=== PATIENT | female | born 1975 | race Native Hawaiian/Other Pacific Islander ===

== ENCOUNTER 2023-05-12 12:00 | Inpatient (IN) | payer MEDICARE, MEDICAID ==
[~2023-05-12] VITALS: Ht 144.8 cm; Wt 43.2 kg
--- NOTE | 2023-05-12 11:37 | PM&R Post Admission Assessment ---
PM&R Date of Visit: May 12, 2023 Time of Visit: 12:10 History of Present Illness CC: Debility from subdural hematomas following a fall HPI: This is a 48-year-old female who resides in a skilled nursing for the last 35 years who has a history of intellectual disability who presents following a fall and subdural hematomas were diagnosed. No surgical intervention was required. When she was admitted to [facility] she was found to have dehydration and sinus tachycardia. She does have a history of seizure disorder but no seizures occurred. Parkinson's limits her activity but she is ambulatory. intermediate will accept her back when she completes rehab. Currently she is doing very well able to follow most commands and will restart all home medication. Past Khhxjtx-Qzywgg-Ouulyf Hx Past Med/Social Hx: Reviewed Nursing Past Med/Soc Hx, Reviewed and Corrections made Patient Social History Marrital Status: single Employed/Student: unemployed Alcohol Use: Denies Use Smoking Status: Never a Smoker Past Medical History Neurological: Dementia, Developmental Disorder, Parkinson's Disease, Seizure Disorder PM&R Allergy/Meds/Data Review Allergies Coded Allergies: haloperidol (Verified Allergy, Unknown, Unknown , Active , ,, 05/12/23) Home Medications Scheduled Calcium Carbonate/Vitamin D3 (Os-Jones 500+D3 Caplet), 1 EACH PO DAILY, (Reported) Clonidine HCl (Clonidine HCl), 0.1 MG PO BID, (Reported) Clozapine (Clozapine), 200 MG PO BID, (Reported) Colestipol HCl (Colestipol HCl), 1 GM PO BID, (Reported) Escitalopram Oxalate (Escitalopram Oxalate), 10 MG PO DAILY, (Reported) Lactobacillus Rhamnosus GG (Culturelle), 1 EACH PO DAILY, (Reported) Lamotrigine (Lamotrigine), 25 MG PO BID, (Reported) Medroxyprogesterone Acetate (Medroxyprogesterone Acetate), 150 MG IM EVERY 3 MONTHS, (Reported) Methimazole (Methimazole), 5 MG PO Q48H, (Reported) Metoprolol Tartrate (Metoprolol Tartrate), 50 MG PO BID, (Reported) Multivitamin (Daily Freddie), 1 EACH PO DAILY, (Reported) Peg/Electrolytes (Golytely Solution), 4,000 ML PO UD, (Reported) Topiramate (Topiramate), 100 MG PO BID, (Reported) Scheduled PRN Acetaminophen (Tylenol Extra Strength), 500 MG PO QID PRN for PAIN-MILD (1-4), (Reported) Benzonatate (Benzonatate), 100 MG PO TID PRN for COUGH, (Reported) Clindamycin Phos (Clindamycin Phosphate), 1 APPLIC TOP UD PRN for ACNE/SKIN CONDITIONS, (Reported) Loperamide HCl (Loperamide), 2 MG PO QID PRN for DIARRHEA, (Reported) Current Medications Current Medications Reviewed Review of Systems ROS-Unable to Obtain: Semiunreliable due to ID Constitutional: see HPI, malaise, weakness EENTM: no symptoms reported Respiratory: no symptoms reported Cardiovascular: no symptoms reported Gastrointestinal: no symptoms reported Genitourinary: no symptoms reported Musculoskeletal: back pain Skin: no symptoms reported Psychiatric/Neurological: Emotional Problems All Other Systems Reviewed Negative Unless Noted: Yes Physical Exam Physical Exam Vital Signs Capillary Refill : Height, Weight, BMI Height: '" Weight: lbs. oz. kg; BMI Method: General Appearance: WD/WN, Anxious, Chronically ill, Thin Eyes: Bilateral Eye Normal Inspection, Bilateral Eye PERRL HEENT: PERRL/EOMI, Normal ENT Inspection, Pharynx Normal Neck: Full Range of Motion, Normal Inspection, Non Tender, Supple, Carotid Bruit Respiratory: Chest Non Tender, Lungs Clear, Normal Breath Sounds, No Accessory Muscle Use, No Respiratory Distress Cardiovascular: Regular Rate, Rhythm, No Edema, No Gallop, No JVD, No Murmur, Normal Peripheral Pulses Gastrointestinal: Normal Bowel Sounds, No Organomegaly, No Pulsatile Mass, Non Tender, Soft Back: Normal Inspection, No CVA Tenderness, No Vertebral Tenderness Extremity: Normal Capillary Refill, Normal Inspection, Normal Range of Motion, Non Tender, No Calf Tenderness, No Pedal Edema Neurologic/Psychiatric: Alert, manager mortgage II-XII Norm as Tested, Abnormal Gait, Depressed Affect, Motor Weakness ( generalized, impulsive) Skin: Normal Color, Warm/Dry Lymphatic: No Adenopathy PM&R Medical Assessment & Plan REHAB/MEDICAL ASSESSMENT AND PLAN: REHAB IMPAIRMENT GROUP: Traumatic, closed injury of brain ETIOLOGIC DIAGNOSIS: Subdural hematomas The comorbidities that impact the patients function and/or functional outcome by: seizure disorder, intellectual delay, Anxiety, Tachycardia REHAB PLAN: The patient is being admitted to our comprehensive inpatient rehabilitation facility and can tolerate the intensity of service consisting of at least: 180 minutes of therapy a day, 5 out of 7 days a week Rehab treatment will consist of: PT and OT will focus on regaining function with use of assistive devices and speech therapy will help with thought process management in order to regain enough independence to return back to skilled nursing The patient/family has a good understanding of our discharge process and will benefit from an interdisciplinary inpatient rehabilitation program. The patient has potential to make improvement and is in need of at least two of the following multidisciplinary therapies including but not limited to physical, occupational, speech, and prosthetics and orthotics. Additionally the patient will need services from respiratory, nutritional services, wound care, psychology, etc. (Customize this to each patient). Given the patients complex condition and risk of further medical complications, rehabilitation services cannot be safely or effectively provided at a lower level of care such as a custodial facility. BARRIERS TO DISCHARGE: intellectual delay ESTIMATED LOS: 7 days DISPOSITION: skilled nursing RELEVANT CHANGES SINCE PREADMISSION SCREENING: I have compared the patients medical and functional status at the time of the preadmission screening and there are: no changes PROGNOSIS: fair REHABILITATION GOALS: 1.PT and OT will focus on regaining function with use of assistive devices and speech therapy will help with thought process management in order to regain enough independence to return back to skilled nursing All the above goals were reviewed with the patient and he/she is in agreement. By signing this document, I acknowledge that I have personally performed a full physical examination on this patient within 24 hours of admission to this inpatient rehabilitation facility and have determined the patient to be able to tolerate the above course of treatment at an intensive level for a reasonable period of time. I will be completing a detailed individualized Plan of Care for this patient by day #4 of the patients stay based upon the Preadmission Screen, the Post-Admission Evaluation, and the therapy evaluations. Admission Dx/Comorbidities: (1) Subdural hematoma ICD Codes: S06.5XAA - Traumatic subdural hemorrhage with loss of consciousness status unknown, initial encounter Assessment/Plan Assessment and Plan Assess & Plan/Chief Complaint Assessment: Fall with subdural hematomas Seizure disorder Intellectual delay Tachycardia Anxiety Malnutrition Plan: Home meds Supportive care Check labs in morning PT and OT ERNST PAYTON DO May 12, 2023 11:37
[~2023-05-12 12:00] MED LIST: ACETAMINOPHEN 325 MG TABLET PO PRN; ALPRAZolam 0.25 MG TABLET PO PRN; BISACODYL 10 MG SUPPOSITORY PR PRN; CALCIUM CARBONATE 500 MG CHEW TABLET PO PRN; DOCUSATE SODIUM 100 MG CAPSULE PO PRN; LACTULOSE SYRUP 10GM/15ML 30ML UDC PO PRN; LOPERAMIDE 2 MG CAPSULE PO PRN; MELATONIN 3 MG TABLET PO PRN; ONDANSETRON 4 MG ORAL DISSOLVE TABLET PO PRN; Sodium Phosphate/Sodium Biphosphate ADULT enema PR PRN; diphenhydrAMINE 25 MG TABLET PO PRN; guaiFENesin/CODEINE 10ML UDC PO PRN
--- OUTSIDE RECORDS SUMMARY | 2023-05-12 12:13 | XMS REPORT ---
Author Author [facility] ter [facility] Address Unknown Phone Unavailable Care Team Providers Care Appliance Counselor Name Role Phone HARSH QUIROZ Unavailable PROBLEMS Type Condition ICD9-CM Code [id number] Code Onset Dates Condition Status W/U Status Risk SNOMED Code Notes Problem Chronic kidney disease, stage 3a N18.31 confirmed 685494967 Problem Kidney disease, chronic, stage III (moderate, EGFR 30-59 ml/min) N18.3 confirmed [id number] Problem Long-term use of high-risk medication Z79.899 Sep, Active confirmed 719665508 Problem Twitching R25.3 confirmed 166330073 Problem Stage 3b chronic kidney disease (CKD) N18.32 confirmed 899034714 Problem Hyperthyroidi sm E05.90 confirmed 98577030 Problem Diarrhea R19.7 confirmed 02670836 Problem Parkinson disease G20 Mar, Active confirmed 54263080 Problem Seizure disorder G40.909 Mar, Active confirmed 412470674 Problem Anxiety F41.9 Mar, Active confirmed 52153123 Problem Intellectual disability F79 confirmed 040083773 ALLERGIES Allergen (clinical drug ingredient) Drug/Non Drug Allergy documented on EMR Reaction Allergy Type Onset Date Status haloperidol HALOPERIDOL([facility] Code:[address]-55 ) Unknown , Active , , Drug Allergy 03/20/2016 Active ENCOUNTERS from 1974 to 2023-03-19 Encounter Location Date Provider Diagnosis [facility] [address] [place] [address] Apr, HARSH REYER IMMUNIZATIONS Vaccine Route Administration Date Status PRIVATE PPSV23 (PNEUMOVAX) IM Intramuscular Mar 26 Administered COVID-19 Pfizer (history) Unknown Sep 23, 2020 Ad ministered COVID-19 Pfizer (history) Unknown Sep 02, 2020 Ad ministered tdap (history) Unknown Sep 29, 2017 Administered tdap (history) Unknown November 08, 2013 Administere d influenza (history) Unknown May 17, 2018 Administ ered influenza (history) Unknown May 20, 2017 Administ ered influenza (history) Unknown May 21, 2016 Administ ered influenza (history) Unknown Jun 18, 2014 Administ ered SOCIAL HISTORY Sex Assigned At : Social History Observation Description Sex Assigned At Unknown Alcohol Screen (Audit-C) Question Answer Notes Did you have a drink containing alcohol in the p ast year? No Points 0 Interpretation Negative PHQ2 Question Answer Notes In the last 2 weeks, how oft en have you had little interest or pleasure in doing things? Not at all In the last 2 weeks, how oft en have you been feeling down, depressed, or hopeless? Not at all Total PHQ2 Score 0 REASON FOR REFERRAL No Information MEDICATIONS Medication SIG (Take, Route, Frequency, Duration) Notes Start Date End Date Status Multivitamin - 1 tablet Orally Once a day Active Benzonatate 100 MG 1 capsule as needed Orally Three times a day Active lamoTRIgine 25 MG 1 tablet Orally two times a day Active Calmoseptine Active Florastor 250 MG 1 capsule Orally daily Active cloNIDine HCl 0.1 MG 1 tablet Orally two times a day Active Loperamide HCl 2 MG 2 capsule as needed Orally Four times a day Active Escitalopram Oxalate 20 MG 1 tablet Orally Once a day Active Vraylar 6 MG 1 capsule Orally Onc e a day Active Topiramate 100 MG 1 tablet Orally BID for 30 day(s) Active Clindamycin Phosphate 1 % 1 application Externally Once a day for 30 day(s) Active OFF Deep Grubbs Activ e Pindolol 5 MG 1 tablet Orally Twic e a day Active Acetaminophen 500 MG 1 capsule as needed Orally every 6 hrs Active Sunscreens Active Oyster Shell 500 MG 1 tablet Orally twic e a day for 30 day(s) Active Depo-Provera 150 MG/ML 1 ml Intramuscular Active cloZAPine 200 MG 1 tablet Orally BID for 30 day(s) Active methIMAzole 5 MG 1 tablet Orally ever y other day Active REASON FOR VISIT med update MEDICAL (GENERAL) HISTORY Type Description Date Medical History Anxiety Medical History Seizure disorder Medical History Parkinson disease Medical History Long-term use of high-risk medic ation Medical History Kidney disease, geropsychologist rin, 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 Granado, [facility] janes, normal 2020 Surgical History EGD/Colonoscopy, Dr. Nash, [facility] 11/24/2021 MENTAL STATUS No Information PLAN OF TREATMENT No Information Insurance Providers Payer Name Payer Address Payer Phone Insured Name Patient Relationship to Insured Coverage Start Date Coverage End Date Subscriber Number Group Number [employer] PART A [address] [facility] [id number] Brad Arce Self - patient is the insured [id number] [place] [address] [address] [facility] [id number] [phone] Brad Arce Self - patient is the insured [id number]
--- OUTSIDE RECORDS SUMMARY | 2023-05-12 12:13 | XMS REPORT ---
Author Author [facility] ter [facility] ter [facility] Address Unknown Phone Unavailable Care Team Providers Care Scorekeeper Name Role Phone HARSH QUIROZ Unavailable PROBLEMS Type Condition ICD9-CM Code [id number] Code Onset Dates Condition Status W/U Status Risk SNOMED Code Notes Problem Chronic kidney disease, stage 3a N18.31 confirmed 131786461 Problem Kidney disease, chronic, stage III (moderate, EGFR 30-59 ml/min) N18.3 confirmed 598279059 Problem Long-term use of high-risk medication Z79.899 Sep, Active confirmed 616227314 Problem Twitching R25.3 confirmed 962657025 Problem Stage 3b chronic kidney disease (CKD) N18.32 confirmed 778203141 Problem Hyperthyroidi sm E05.90 confirmed 70080607 Problem Diarrhea R19.7 confirmed 04038522 Problem Parkinson disease G20 Mar, Active confirmed 15469156 Problem Seizure disorder G40.909 Mar, Active confirmed 879794669 Problem Anxiety F41.9 Mar, Active confirmed 19631988 Problem Intellectual disability F79 confirmed 266695083 ALLERGIES Allergen (clinical drug ingredient) Drug/Non Drug Allergy documented on EMR Reaction Allergy Type Onset Date Status haloperidol HALOPERIDOL([facility] Code:[address]-33 ) Unknown , Active , , Drug Allergy 03/20/2016 Active ENCOUNTERS from 1974 to 2023-03-28 Encounter Location Date Provider Diagnosis [facility] [address] [place] [address] Apr, HARSH QUIROZ Long-term use of high-risk medication Z79.899 IMMUNIZATIONS Vaccine Route Administration Date Status PRIVATE PPSV23 (PNEUMOVAX) IM Intramuscular Mar 26 Administered influenza (history) Unknown Jun 18, 2014 Administ ered influenza (history) Unknown May 21, 2016 Administ ered influenza (history) Unknown May 20, 2017 Administ ered influenza (history) Unknown May 17, 2018 Administ ered tdap (history) Unknown November 08, 2013 Administere d tdap (history) Unknown Sep 29, 2017 Administered COVID-19 Pfizer (history) Unknown Sep 02, 2020 Ad ministered COVID-19 Pfizer (history) Unknown Sep 23, 2020 Ad ministered SOCIAL HISTORY Sex Assigned At : Social [...] tablet Orally ever y other day Active PROCEDURES from 1974 to 2023-03-28 Procedure Date Ordered Date Performed Result Body Sit e ROUTINE VENIPUNCTURE 2021-04-14 2021-04-14 N/A REASON FOR VISIT CIERA Hemphill MEDICAL (GENERAL) HISTORY Type Description Date Medical History Anxiety Medical History Seizure disorder Medical History Parkinson disease Medical History Long-term use of high-risk medic ation Medical History Kidney disease, product mgr rin, 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 Granado, [facility] janes, normal 2020 Surgical History EGD/Colonoscopy, Dr. Nash, [facility] 11/24/2021 MENTAL STATUS No Information ASSESSMENTS Encounter Date Diagnosis Assessment Notes Treatment Notes Treatment Clinical Notes Apr, Long-term use of high-risk medication (ICD-10 - Z79.899) PLAN OF TREATMENT No Information Insurance Providers Payer Name Payer Address Payer Phone Insured Name Patient Relationship to Insured Coverage Start Date Coverage End Date Subscriber Number Group Number [employer] [place] PART A [address] [place] [address] Brad Arce Self - patient is the insured [id number] [place] [address] [address] [facility] [id number] Brad Arce Self - patient is the insured [id number]
--- OUTSIDE RECORDS SUMMARY | 2023-05-12 12:13 | XMS REPORT ---
Author Author [facility] ter [facility] ter [facility] Address Unknown Phone Unavailable Care Team Providers Care Centerpuncher Name Role Phone HARSH QUIROZ Unavailable PROBLEMS Type Condition ICD9-CM Code [id number] Code Onset Dates Condition Status W/U Status Risk SNOMED Code Notes Problem Chronic kidney disease, stage 3a N18.31 confirmed 161446931 Problem Kidney disease, chronic, stage III (moderate, EGFR 30-59 ml/min) N18.3 confirmed 225809219 Problem Long-term use of high-risk medication Z79.899 Sep, Active confirmed 209822207 Problem Twitching R25.3 confirmed 947037538 Problem Stage 3b chronic kidney disease (CKD) N18.32 confirmed 098962204 Problem Hyperthyroidi sm E05.90 confirmed 01467599 Problem Diarrhea R19.7 confirmed 25589589 Problem Parkinson disease G20 Mar, Active confirmed 20601249 Problem Seizure disorder G40.909 Mar, Active confirmed 171612349 Problem Anxiety F41.9 Mar, Active confirmed 57309362 Problem Intellectual disability F79 confirmed 996123200 ALLERGIES Allergen (clinical drug ingredient) Drug/Non Drug Allergy documented on EMR Reaction Allergy Type Onset Date Status haloperidol HALOPERIDOL([facility] Code:[address]-31 ) Unknown , Active , , Drug Allergy 03/20/2016 Active ENCOUNTERS from 1974 to 2023-04-28 Encounter Location Date Provider Diagnosis [facility] [address] [place] [address] May, HARSH QUIROZ Long-term use of high-risk medication Z79.899 IMMUNIZATIONS Vaccine Route Administration Date Status PRIVATE PPSV23 (PNEUMOVAX) IM Intramuscular Mar 26 21 Administered COVID-19 Pfizer (history) Unknown Sep 02, 2020 Ad ministered COVID-19 Pfizer (history) Unknown Sep 23, 2020 Ad ministered tdap (history) Unknown Sep [...] Duration) Notes Start Date End Date Status Sunscreens Active cloZAPine 200 MG 1 tablet Orally BID for 30 day(s) Active OFF Deep Grubbs Activ e Topiramate 100 MG 1 tablet Orally BID for 30 day(s) Active Loperamide HCl 2 MG 2 capsule as needed Orally Four times a day Active Depo-Provera 150 MG/ML 1 ml Intramuscular Active Multivitamin - 1 tablet Orally Once a day Active Clindamycin Phosphate 1 % 1 application Externally Once a day for 30 day(s) Active methIMAzole 5 MG 1 tablet Orally ever y other day Active Benzonatate 100 MG 1 capsule as needed Orally Three times a day Active Acetaminophen 500 MG 1 capsule as needed Orally every 6 hrs Active Escitalopram Oxalate 20 MG 1 tablet Orally Once a day Active Milk of Magnesia 400 MG/5ML 5 mL at least 4 hours between doses as needed Orally Four times a day 30 ml prn Active Megestrol Acetate 40 MG/ML 1 mL Orally Once a day 20 ml daily Active metroNIDAZOLE 500 MG 1 tablet Orally two times a day Active cloNIDine HCl 0.1 MG 1 tablet Orally two times a day Active Cyanocobalamin 1000 MCG 1 tablet Orally Once a day every 30 days Active Vraylar 6 MG 1 capsule Orally Onc e a day Active Oyster Shell 500 MG 1 tablet Orally twic e a day for 30 day(s) Active Pindolol 5 MG 1 tablet Orally Twic e a day Active Calmoseptine Active lamoTRIgine 25 MG 1 tablet Orally two times a day Unknown Florastor 250 MG 1 capsule Orally daily Active PROCEDURES from 1974 to 2023-04-28 Procedure Date Ordered Date Performed Result Body Sit e ROUTINE VENIPUNCTURE 2021-05-09 2021-05-09 N/A REASON FOR VISIT Lab (walk-in) [facility] Siddhartha SalinasMagdiel [place]ST[place]O MEDICAL (GENERAL) HISTORY Type Description Date Medical History Anxiety Medical History Seizure disorder Medical History Parkinson disease Medical History Long-term use of high-risk medic ation Medical History Kidney disease, finisher denture rin, 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 Granado, [facility] [place], normal 2020 Surgical History EGD/Colonoscopy, Dr. Nash, [facility] 11/24/2021 MENTAL STATUS No Information ASSESSMENTS Encounter Date Diagnosis Assessment Notes Treatment Notes Treatment Clinical Notes May, Long-term use of high-risk medication (ICD-10 - Z79.899) PLAN OF TREATMENT No Information Insurance Providers Payer Name Payer Address Payer Phone Insured Name Patient Relationship to Insured Coverage Start Date Coverage End Date Subscriber Number Group Number [place] [address] [address] [facility] [id number] [phone] Brad Arce Self - patient is the insured [id number] [employer] [place] PART A [address] [facility] [id number] Brad Arce Self - patient is the insured [id number]
--- OUTSIDE RECORDS SUMMARY | 2023-05-12 12:13 | XMS REPORT ---
Author Author [facility] ter [facility] Address Unknown Phone Unavailable Care Team Providers Care Director Of Staff Development Name Role Phone HARSH QUIROZ Unavailable PROBLEMS Type Condition ICD9-CM Code [id number] Code Onset Dates Condition Status W/U Status Risk SNOMED Code Notes Problem Chronic kidney disease, stage 3a N18.31 confirmed 164004944 Problem Kidney disease, chronic, stage III (moderate, EGFR 30-59 ml/min) N18.3 confirmed Problem Long-term use of high-risk medication Z79.899 Sep, Active confirmed 556658769 Problem Twitching R25.3 confirmed 798766034 Problem Stage 3b chronic kidney disease (CKD) N18.32 confirmed 815653238 Problem Hyperthyroidi sm E05.90 confirmed 35771084 Problem Diarrhea R19.7 confirmed 98230297 Problem Parkinson disease G20 Mar, Active confirmed 96819338 Problem Seizure disorder G40.909 Mar, Active confirmed Problem Anxiety F41.9 Mar, Active confirmed Problem Intellectual disability F79 confirmed ALLERGIES Allergen (clinical drug ingredient) Drug/Non Drug Allergy documented on EMR Reaction Allergy Type Onset Date Status haloperidol HALOPERIDOL([facility] Code:[address]-29 ) Unknown , Active , , Drug Allergy 03/20/2016 Active ENCOUNTERS from 1974 to 2023-03-30 Encounter Location Date Provider Diagnosis [facility] [address] [place] [address] Apr, HARSH QUIROZ IMMUNIZATIONS Vaccine Route Administration Date Status COVID-19 Pfizer (history) Unknown Sep 02, 2020 Ad ministered COVID-19 Pfizer (history) Unknown Sep 23, 2020 Ad ministered tdap (history) Unknown Sep 29, 2017 Administered tdap (history) Unknown November 08, 2013 Administere d influenza (history) Unknown May 17, 2018 Administ eretai influenza (history) Unknown May 20, 2017 Administ tanvir influenza (history) Unknown May 21, 2016 Administ tanvir influenza (history) Unknown Jun 18, 2014 Administ tanvir PRIVATE PPSV23 (PNEUMOVAX) IM Intramuscular Mar 26 Administered SOCIAL HISTORY Sex Assigned At : Social [...] y other day Active REASON FOR VISIT diarrhea MEDICAL (GENERAL) HISTORY Type Description Date Medical History Anxiety Medical History Seizure disorder Medical History Parkinson disease Medical History Long-term use of high-risk medic ation Medical History Kidney disease, clinical tech rin, 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 Granado, [place] [facility] [place], normal 2020 Surgical History EGD/Colonoscopy, Dr. Nash, [facility] 11/24/2021 MENTAL STATUS No Information PLAN OF TREATMENT No Information Insurance Providers Payer Name Payer Address Payer Phone Insured Name Patient Relationship to Insured Coverage Start Date Coverage End Date Subscriber Number Group Number [place] [address] [address] [facility] [id number] Brad Arce Self - patient is the insured [id number] [employer] [place] PART A [address] [facility] [id number] Brad Arce Self - patient is the insured [id number]
--- OUTSIDE RECORDS SUMMARY | 2023-05-12 12:13 | XMS REPORT ---
Author Author [facility] ter [facility] Address Unknown Phone Unavailable Care Team Providers Care Respiratory Tech Name Role Phone HARSH QUIROZ Unavailable PROBLEMS Type Condition ICD9-CM Code [id number] Code Onset Dates Condition Status W/U Status Risk SNOMED Code Notes Problem Chronic kidney disease, stage 3a N18.31 confirmed 571341070 Problem Kidney disease, chronic, stage III (moderate, EGFR 30-59 ml/min) N18.3 confirmed 932066889 Problem Long-term use of high-risk medication Z79.899 Sep, Active confirmed 416714649 Problem Twitching R25.3 confirmed 460278870 Problem Stage 3b chronic kidney disease (CKD) N18.32 confirmed 710881955 Problem Hyperthyroidi sm E05.90 confirmed 46226804 Problem Diarrhea R19.7 confirmed 39465808 Problem Parkinson disease G20 Mar, Active confirmed 89651079 Problem Seizure disorder G40.909 Mar, Active confirmed 208826808 Problem Anxiety F41.9 Mar, Active confirmed 41183577 Problem Intellectual disability F79 confirmed 330097001 ALLERGIES Allergen (clinical drug ingredient) Drug/Non Drug Allergy documented on EMR Reaction Allergy Type Onset Date Status haloperidol HALOPERIDOL([facility] Code:[address]-34 ) Unknown , Active , , Drug Allergy 03/20/2016 Active ENCOUNTERS from 1975 to 2023-03-23 Encounter Location Date Provider Diagnosis [facility] [address] [place] [address] Apr, HARSH REYER IMMUNIZATIONS Vaccine Route Administration Date Status PRIVATE PPSV23 (PNEUMOVAX) IM Intramuscular Mar 26 Administered COVID-19 Pfizer (history) Unknown Sep 02, [...] y other day Active REASON FOR VISIT appt. 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 Granado, [facility] [place], normal 2020 [facility] MENTAL STATUS No Information PLAN OF TREATMENT No Information Insurance Providers Payer Name Payer Address Payer Phone Insured Name Patient Relationship to Insured Coverage Start Date Coverage End Date Subscriber Number Group Number [place] [address] [address] [facility] [id number] Brad Arce Self - patient is the insured [id number] [employer] [place] PART A [address] [facility] [address] Brad Arce Self - patient is the insured [id number]
--- OUTSIDE RECORDS SUMMARY | 2023-05-12 12:14 | XMS REPORT ---
Author Author [facility] ter [facility] Address Unknown Phone Unavailable Care Team Providers Care Electro Mechanical Engineer Name Role Phone HARSH QUIROZ Unavailable PROBLEMS Type Condition ICD9-CM Code [id number] Code Onset Dates Condition Status W/U Status Risk SNOMED Code Notes Problem Chronic kidney disease, stage 3a N18.31 confirmed 697394499 Problem Kidney disease, chronic, stage III (moderate, EGFR 30-59 ml/min) N18.3 confirmed 211182993 Problem Long-term use of high-risk medication Z79.899 Sep, Active confirmed 086893939 Problem Twitching R25.3 confirmed 945915493 Problem Diarrhea R19.7 confirmed 64378144 Problem Hyperthyroidi sm E05.90 confirmed 56581411 Problem Parkinson disease G20 Mar, Active confirmed 22937825 Problem Seizure disorder G40.909 Mar, Active confirmed 479390194 Problem Anxiety F41.9 Mar, Active confirmed 33626750 Problem Intellectual disability F79 confirmed 505085307 ALLERGIES Allergen (clinical drug ingredient) Drug/Non Drug Allergy documented on EMR Reaction Allergy Type Onset Date Status haloperidol HALOPERIDOL([facility] Code:[address]-42 ) Unknown , Active , , Drug Allergy 03/20/2016 Active ENCOUNTERS from 1974 to 2023-02-07 Encounter Location Date Provider Diagnosis [facility] [address] [place] [address] Mar, HARSH QUIROZ Diarrhea R19.7 IMMUNIZATIONS Vaccine Route Administration Date Status PRIVATE [...] y other day Active REASON FOR VISIT stool sample/Dr. 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 Granado, [facility] [place], normal 2020 Surgical History EGD/Colonoscopy, Dr. Nash, [facility] [place] 11/24/2021 MENTAL STATUS No Information ASSESSMENTS Encounter Date Diagnosis Assessment Notes Treatment Notes Treatment Clinical Notes Mar, Diarrhea (ICD-10 - R19.7) PLAN OF TREATMENT No Information Insurance Providers Payer Name Payer Address Payer Phone Insured Name Patient Relationship to Insured Coverage Start Date Coverage End Date Subscriber Number Group Number [place] [address] [address] [facility] [id number] Brad Arce Self - patient is the insured [id number] [employer] [place] [address] [facility] [address] Brad Arce Self - patient is the insured [id number]
--- OUTSIDE RECORDS SUMMARY | 2023-05-12 12:14 | XMS REPORT ---
Author Author [facility] ter [facility] Address Unknown Phone Unavailable Care Team Providers Care Talent Sourcer Name Role Phone HARSH QUIROZ Unavailable PROBLEMS Type Condition ICD9-CM Code [id number] Code Onset Dates Condition Status W/U Status Risk SNOMED Code Notes Problem Chronic kidney disease, stage 3a N18.31 confirmed 788232891 Problem Kidney disease, chronic, stage III (moderate, EGFR 30-59 ml/min) N18.3 confirmed 537165426 Problem Long-term use of high-risk medication Z79.899 Sep, Active confirmed 964440669 Problem Twitching R25.3 confirmed 574439126 Problem Diarrhea R19.7 confirmed 45551929 Problem Hyperthyroidi sm E05.90 confirmed 79151658 Problem Parkinson disease G20 Mar, Active confirmed 17507381 Problem Seizure disorder G40.909 Mar, Active confirmed 399627554 Problem Anxiety F41.9 Mar, Active confirmed 89359133 Problem Intellectual disability F79 confirmed 521053943 ALLERGIES Allergen (clinical drug ingredient) Drug/Non Drug Allergy documented on EMR Reaction Allergy Type Onset Date Status haloperidol HALOPERIDOL([facility] Code:[address]-31 ) Unknown , Active , , Drug Allergy 03/20/2016 Active ENCOUNTERS from 1975 to 2023-01-13 Encounter Location Date Provider Diagnosis [facility] [place] [address] [place] [address] Jan, HARSH QUIROZ IMMUNIZATIONS Vaccine Route Administration Date Status COVID-19 Pfizer (history) Unknown Sep 23, 2020 Ad ministered COVID-19 Pfizer (history) Unknown Sep 02, 2020 Ad ministered tdap (history) Unknown Sep 29, 2017 Administered tdap (history) Unknown November 08, 2013 Administere d influenza (history) Unknown May 17, 2018 Administ eretai influenza (history) Unknown May 20, 2017 Administ eretai influenza (history) Unknown May 21, 2016 Administ [...] y other day Active REASON FOR VISIT [facility] MEDICAL (GENERAL) HISTORY Type Description Date Medical History Anxiety Medical History Seizure disorder Medical History Parkinson disease Medical History Long-term use of high-risk medic ation Medical History 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 Granado, [facility] [place], normal 2020 Surgical History EGD/Colonoscopy, Dr. Nash, [facility] 11/24/2021 MENTAL STATUS No Information PLAN OF TREATMENT No Information Insurance Providers Payer Name Payer Address Payer Phone Insured Name Patient Relationship to Insured Coverage Start Date Coverage End Date Subscriber Number Group Number [employer] [place] PART A [address] [facility] [phone] Brad Arce Self - patient is the insured [id number] [place] [address] [address] [facility] [address] Brad Arce Self - patient is the insured [id number]
--- OUTSIDE RECORDS SUMMARY | 2023-05-12 12:14 | XMS REPORT ---
Author Author [facility] ter [facility] ter [facility] Address Unknown Phone Unavailable Care Team Providers Care Administrative Court Justice Name Role Phone HARSH QUIROZ Unavailable PROBLEMS Type Condition ICD9-CM Code [id number] Code Onset Dates Condition Status W/U Status Risk SNOMED Code Notes Problem Chronic kidney disease, stage 3a N18.31 confirmed 850785750 Problem Kidney disease, chronic, stage III (moderate, EGFR 30-59 ml/min) N18.3 confirmed 052914399 Problem Long-term use of high-risk medication Z79.899 Sep, Active confirmed 332027783 Problem Twitching R25.3 confirmed 761491982 Problem Diarrhea R19.7 confirmed 84268958 Problem Hyperthyroidi sm E05.90 confirmed 97513167 Problem Parkinson disease G20 Mar, Active confirmed 88110855 Problem Seizure disorder G40.909 Mar, Active confirmed 473255057 Problem Anxiety F41.9 Mar, Active confirmed 37488505 Problem Intellectual disability F79 confirmed 282044299 ALLERGIES Allergen (clinical drug ingredient) Drug/Non Drug Allergy documented on EMR Reaction Allergy Type Onset Date Status haloperidol HALOPERIDOL([facility] Code:[address]-88 ) Unknown , Active , , Drug Allergy 03/20/2016 Active ENCOUNTERS from 1974 to 2023-01-29 Encounter Location Date Provider Diagnosis [facility] [address] [place] [address] [place] [address] Jan, HARSH QUIROZ Long-term use of high-risk medication Z79.899 IMMUNIZATIONS Vaccine Route Administration Date Status PRIVATE PPSV23 (PNEUMOVAX) IM Intramuscular Mar 26 21 Administered COVID-19 Pfizer (history) Unknown Sep 23, [...] other day Active PROCEDURES from 1974 to 2023-01-29 Procedure Date Ordered Date Performed Result Body Sit e ROUTINE VENIPUNCTURE 2021-02-21 2021-02-21 N/A REASON FOR VISIT [facility] [place] MEDICAL (GENERAL) HISTORY Type Description Date Medical History Anxiety Medical History Seizure disorder Medical History Parkinson disease Medical History Long-term use of high-risk medic ation Medical History 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 Granado, [place], normal 2020 Surgical History EGD/Colonoscopy, Dr. Nash, [facility] 11/24/2021 MENTAL STATUS No Information ASSESSMENTS Encounter Date Diagnosis Assessment Notes Treatment Notes Treatment Clinical Notes Jan, Long-term use of high-risk medication (ICD-10 - Z79.899) PLAN OF TREATMENT No Information Insurance Providers Payer Name Payer Address Payer Phone Insured Name Patient Relationship to Insured Coverage Start Date Coverage End Date Subscriber Number Group Number [place] [address] [address] [facility] [id number] Brad Arce Self - patient is the insured [id number] [employer] [place] A [address] [facility] [address] Brad Arce Self - patient is the insured [id number]
--- OUTSIDE RECORDS SUMMARY | 2023-05-12 12:14 | XMS REPORT ---
Author Author [facility] ter [facility] ter [facility] Address Unknown Phone Unavailable Care Team Providers Care Chief Controller Name Role Phone HARSH QUIROZ Unavailable PROBLEMS Type Condition ICD9-CM Code [id number] Code Onset Dates Condition Status W/U Status Risk SNOMED Code Notes Problem Chronic kidney disease, stage 3a N18.31 confirmed 523173723 Problem Kidney disease, chronic, stage III (moderate, EGFR 30-59 ml/min) N18.3 confirmed 966274892 Problem Long-term use of high-risk medication Z79.899 Sep, Active confirmed 527864412 Problem Twitching R25.3 confirmed 030921502 Problem Diarrhea R19.7 confirmed 88156845 Problem Hyperthyroidi sm E05.90 confirmed 77141683 Problem Parkinson disease G20 Mar, Active confirmed 07103396 Problem Seizure disorder G40.909 Mar, Active confirmed 508621868 Problem Anxiety F41.9 Mar, Active confirmed 77768839 Problem Intellectual disability F79 confirmed 407736926 ALLERGIES Allergen (clinical drug ingredient) Drug/Non Drug Allergy documented on EMR Reaction Allergy Type Onset Date Status haloperidol HALOPERIDOL([facility] Code:[address]-88 ) Unknown , Active , , Drug Allergy 03/20/2016 Active ENCOUNTERS from 1975 to 2022-12-17 Encounter Location Date Provider Diagnosis [facility] [address] [place] [address] Dec, HARSH QUIROZ Chronic kidney disease, stage 3 (moderate) N18.3 and Long-term use of high-risk medication Z79.899 IMMUNIZATIONS Vaccine Route Administration Date Status COVID-19 Pfizer (history) Unknown Sep 02, 2020 Ad ministered COVID-19 Pfizer (history) Unknown Sep 23, 2020 Ad ministered tdap (history) Unknown Sep 29, 2017 Administered tdap (history) Unknown November 08, 2013 Administere d influenza (history) Unknown May 17, 2018 Administ ered influenza (history) Unknown May 20, 2017 Administ ered influenza (history) Unknown May 21, 2016 Administ eretai influenza (history) Unknown Jun 18, 2014 Administ [...] y other day Active REASON FOR VISIT Labs[facility]/CIELO Farfan MEDICAL (GENERAL) HISTORY Type Description Date Medical History Anxiety Medical History Seizure disorder Medical History Parkinson disease Medical History Long-term use of high-risk medic ation Medical History 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 Granado, [facility] [place], normal 2020 Surgical [facility] MENTAL STATUS No Information ASSESSMENTS Encounter Date Diagnosis Assessment Notes Treatment Notes Treatment Clinical Notes Dec, Chronic kidney disease, stage 3 (moderate) (ICD-10 - N18.3) Dec, Long-term use of high-risk medication (ICD-10 - Z79.899) PLAN OF TREATMENT No Information Insurance Providers Payer Name Payer Address Payer Phone Insured Name Patient Relationship to Insured Coverage Start Date Coverage End Date Subscriber Number Group Number [employer] [place] PART A [address] [facility] [id number] Brad Arce Self - patient is the insured [id number] [place] [address] [address] [facility] [address] Brad Arce Self - patient is the insured [id number]
--- OUTSIDE RECORDS SUMMARY | 2023-05-12 12:14 | XMS REPORT ---
Author Author [facility] ter [facility] Address Unknown Phone Unavailable Care Team Providers Care Fire Fighter [employer] Name Role Phone HARSH QUIROZ Unavailable PROBLEMS Type Condition ICD9-CM Code [id number] Code Onset Dates Condition Status W/U Status Risk SNOMED Code Notes Problem Chronic kidney disease, stage 3a N18.31 confirmed 113208344 Problem Kidney disease, chronic, stage III (moderate, EGFR 30-59 ml/min) N18.3 confirmed 901247206 Problem Long-term use of high-risk medication Z79.899 Sep, Active confirmed 642815490 Problem Twitching R25.3 confirmed 381074871 Problem Diarrhea R19.7 confirmed 24065844 Problem Hyperthyroidi sm E05.90 confirmed 44480984 Problem Parkinson disease G20 Mar, Active confirmed 67680211 Problem Seizure disorder G40.909 Mar, Active confirmed 442663322 Problem Anxiety F41.9 Mar, Active confirmed 00488253 Problem Intellectual disability F79 confirmed 911535993 ALLERGIES Allergen (clinical drug ingredient) Drug/Non Drug Allergy documented on EMR Reaction Allergy Type Onset Date Status haloperidol HALOPERIDOL([facility] Code:[address]-30 ) Unknown , Active , , Drug Allergy 03/20/2016 Active ENCOUNTERS from 1975 to 2022-12-14 Encounter Location Date Provider Diagnosis [facility] [address] [place] [address] Dec, HARSH QUIROZ IMMUNIZATIONS Vaccine Route Administration Date [...] day Active REASON FOR VISIT [facility] MEDICAL (GENERAL) HISTORY Type Description Date Medical History Anxiety Medical History Seizure disorder Medical History Parkinson disease Medical History Long-term use of high-risk medic ation Medical History Kidney disease, pcas rin, 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 Granado, [place], normal 2020 Surgical History EGD/Colonoscopy, Dr. Nash, [facility] [place] 11/24/2021 MENTAL STATUS No Information PLAN OF TREATMENT No Information Insurance Providers Payer Name Payer Address Payer Phone Insured Name Patient Relationship to Insured Coverage Start Date Coverage End Date Subscriber Number Group Number [place] [employer] [address] [address] [facility] [address] Brad Arce Self - patient is the insured [id number] [employer] PART A [address] [facility] [address] Brad Arce Self - patient is the insured [id number]
--- OUTSIDE RECORDS SUMMARY | 2023-05-12 12:14 | XMS REPORT ---
Author Author [facility] Address Unknown Phone Unavailable Care Team Providers Care Pomology Teacher Name Role Phone HARSH QUIROZ Unavailable PROBLEMS Type Condition ICD9-CM Code [id number] Code Onset Dates Condition Status W/U Status Risk SNOMED Code Notes Problem Chronic kidney disease, stage 3a N18.31 confirmed 850471935 Problem Kidney disease, chronic, stage III (moderate, EGFR 30-59 ml/min) N18.3 confirmed 256211986 Problem Long-term use of high-risk medication Z79.899 Sep, Active confirmed 454804894 Problem Twitching R25.3 confirmed 969176864 Problem Diarrhea R19.7 confirmed 09227987 Problem Hyperthyroidi sm E05.90 confirmed 35800666 Problem Parkinson disease G20 Mar, Active confirmed 41341435 Problem Seizure disorder G40.909 Mar, Active confirmed 709193740 Problem Anxiety F41.9 Mar, Active confirmed 93962739 Problem Intellectual disability F79 confirmed 444083970 ALLERGIES Allergen (clinical drug ingredient) Drug/Non Drug Allergy documented on EMR Reaction Allergy Type Onset Date Status haloperidol HALOPERIDOL([facility] Code:[address]-34 ) Unknown , Active , , Drug Allergy 03/20/2016 Active ENCOUNTERS from 1975 to 2023-02-03 Encounter Location Date Provider [facility] [address] [place] [address] Jan, JEQUITA QUIROZ IMMUNIZATIONS Vaccine Route Administration Date Status COVID-19 Pfizer (history) Unknown Sep 23, 2020 Ad ministered COVID-19 Pfizer (history) Unknown Sep 02, 2020 Ad ministered tdap (history) Unknown Sep 29, 2017 Administered tdap (history) Unknown November 08, 2013 Administere d influenza (history) Unknown May 17, 2018 Administ tanvir influenza (history) Unknown May 20, 2017 Administ [...] y other day Active REASON FOR VISIT Diarrhea MEDICAL (GENERAL) HISTORY Type Description Date Medical History Anxiety Medical History Seizure disorder Medical History Parkinson disease Medical History Long-term use of high-risk medic ation Medical History 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 Granado, [facility] [place], normal 2020 Surgical History EGD/Colonoscopy, Dr. Nash, [facility] [place] 11/24/2021 MENTAL STATUS No Information PLAN OF TREATMENT No Information Insurance Providers Payer Name Payer Address Payer Phone Insured Name Patient Relationship to Insured Coverage Start Date Coverage End Date Subscriber Number Group Number [place] [address] [address] [facility] [id number] [phone] Brad Arce Self - patient is the insured [id number] [employer] [place] PART A [address] [facility] [address] Brad Arce Self - patient is the insured [id number]
--- OUTSIDE RECORDS SUMMARY | 2023-05-12 12:14 | XMS REPORT ---
Author Author [facility] ter [facility] ter [facility] Address Unknown Phone Unavailable Care Team Providers Care Janitor Custodian Name Role Phone HARSH QUIROZ Unavailable PROBLEMS Type Condition ICD9-CM Code [id number] Code Onset Dates Condition Status W/U Status Risk SNOMED Code Notes Problem Chronic kidney disease, stage 3a N18.31 confirmed 600785888 Problem Kidney disease, chronic, stage III (moderate, EGFR 30-59 ml/min) N18.3 confirmed 165199699 Problem Long-term use of high-risk medication Z79.899 Sep, Active confirmed 179180223 Problem Twitching R25.3 confirmed 019033910 Problem Diarrhea R19.7 confirmed 30421735 Problem Hyperthyroidi sm E05.90 confirmed 97018701 Problem Parkinson disease G20 Mar, Active confirmed 83364294 Problem Seizure disorder G40.909 Mar, Active confirmed 585599718 Problem Anxiety F41.9 Mar, Active confirmed 10493711 Problem Intellectual disability F79 confirmed 851091257 ALLERGIES Allergen (clinical drug ingredient) Drug/Non Drug Allergy documented on EMR Reaction Allergy Type Onset Date Status haloperidol HALOPERIDOL([facility] Code:[address]-14 ) Unknown , Active , , Drug Allergy 03/20/2016 Active ENCOUNTERS from 1975 to 2023-01-08 Encounter Location Date Provider Diagnosis [facility] [address] [place] [address] [place] [address] Dec, HARSH QUIROZ Long-term use of high-risk medication [...] influenza (history) Unknown Jun 18, 2014 Administ eretai PRIVATE PPSV23 (PNEUMOVAX) IM Intramuscular Mar 26 [...] other day Active PROCEDURES from 1974 to 2023-01-08 Procedure Date Ordered Date Performed Result Body Sit e ROUTINE VENIPUNCTURE 2021-01-29 2021-01-29 N/A REASON FOR VISIT Lab-home [facility] MEDICAL (GENERAL) HISTORY Type Description Date Medical History Anxiety Medical History Seizure disorder Medical History Parkinson disease Medical History Long-term use of high-risk medic ation Medical History 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 Granado, [place], normal 2020 Surgical History EGD/Colonoscopy, Dr. Nash, [facility] 11/24/2021 MENTAL STATUS No Information ASSESSMENTS Encounter Date Diagnosis Assessment Notes Treatment Notes Treatment Clinical Notes Dec, Long-term use of high-risk medication (ICD-10 - Z79.899) PLAN OF TREATMENT No Information Insurance Providers Payer Name Payer Address Payer Phone Insured Name Patient Relationship to Insured Coverage Start Date Coverage End Date Subscriber Number Group Number [employer] PART A [address] [facility] [id number] Brad Arce Self - patient is the insured [id number] [place] [address] [address] [facility] [id number] Brad Arce Self - patient is the insured [id number]
--- OUTSIDE RECORDS SUMMARY | 2023-05-12 12:14 | XMS REPORT ---
Author Author [facility] ter [facility] Address Unknown Phone Unavailable Care Team Providers Care Accounts Payables Clerk Name Role Phone HARSH QUIROZ Unavailable PROBLEMS ALLERGIES ENCOUNTERS from 1975 to 2023-01-27 IMMUNIZATIONS SOCIAL HISTORY No smoking Hx information available REASON FOR REFERRAL No Information MEDICATIONS REASON FOR VISIT MEDICAL (GENERAL) HISTORY MENTAL STATUS ASSESSMENTS PLAN OF TREATMENT Insurance Providers
--- OUTSIDE RECORDS SUMMARY | 2023-05-12 12:14 | XMS REPORT ---
Author Author [facility] ter [facility] Address Unknown Phone Unavailable Care Team Providers Care Supervisor Dumping Name Role Phone HARSH QUIROZ Unavailable PROBLEMS Type Condition ICD9-CM Code [id number] Code Onset Dates Condition Status W/U Status Risk SNOMED Code Notes Problem Chronic kidney disease, stage 3a N18.31 confirmed 885890397 Problem Kidney disease, chronic, stage III (moderate, EGFR 30-59 ml/min) N18.3 confirmed 175547018 Problem Long-term use of high-risk medication Z79.899 Sep, Active confirmed 734815869 Problem Twitching R25.3 confirmed 671482374 Problem Diarrhea R19.7 confirmed 78327266 Problem Hyperthyroidi sm E05.90 confirmed 50203826 Problem Parkinson disease G20 Mar, Active confirmed 55987073 Problem Seizure disorder G40.909 Mar, Active confirmed 660292763 Problem Anxiety F41.9 Mar, Active confirmed 66646375 Problem Intellectual disability F79 confirmed 770471877 ALLERGIES Allergen (clinical drug ingredient) Drug/Non Drug Allergy documented on EMR Reaction Allergy Type Onset Date Status haloperidol HALOPERIDOL([facility] Code:[address]-47 ) Unknown , Active , , Drug Allergy 03/20/2016 Active ENCOUNTERS from 1974 to 2022-12-09 Encounter Location Date Provider Diagnosis [facility] [address] [place] [address] November, HARSH QUIROZ Long-term use of high-risk medication [...] other day Active PROCEDURES from 1974 to 2022-12-09 Procedure Date Ordered Date Performed Result Body Sit e ROUTINE VENIPUNCTURE 2020-12-27 2020-12-27 N/A REASON FOR VISIT Lab MEDICAL (GENERAL) HISTORY Type Description Date Medical History Anxiety Medical History Seizure disorder Medical History Parkinson disease Medical History Long-term use of high-risk medic ation Medical History 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 Granado, [place], normal 2020 Surgical History EGD/Colonoscopy, Dr. Nash, [facility] [place] 11/24/2021 MENTAL STATUS No Information ASSESSMENTS Encounter Date Diagnosis Assessment Notes Treatment Notes Treatment Clinical Notes November, Long-term use of high-risk medication (ICD-10 - Z79.899) PLAN OF TREATMENT No Information Insurance Providers Payer Name Payer Address Payer Phone Insured Name Patient Relationship to Insured Coverage Start Date Coverage End Date Subscriber Number Group Number [employer] [place] PART A [address] [facility] [id number] Brad Arce Self - patient is the insured [id number] [place] [address] [address] [facility] [address] Brad Arce Self - patient is the insured [id number]
--- OUTSIDE RECORDS SUMMARY | 2023-05-12 12:14 | XMS REPORT ---
Author Author [facility] ter [facility] ter [facility] Address Unknown Phone Unavailable Care Team Providers Care Manager Talent Management Name Role Phone HARSH QUIROZ Unavailable PROBLEMS Type Condition ICD9-CM Code [id number] Code Onset Dates Condition Status W/U Status Risk SNOMED Code Notes Problem Chronic kidney disease, stage 3a N18.31 confirmed 172936030 Problem Kidney disease, chronic, stage III (moderate, EGFR 30-59 ml/min) N18.3 confirmed 007530810 Problem Long-term use of high-risk medication Z79.899 Sep, Active confirmed 852078819 Problem Twitching R25.3 confirmed 239231829 Problem Stage 3b chronic kidney disease (CKD) N18.32 confirmed 554131471 Problem Hyperthyroidi sm E05.90 confirmed 35680370 Problem Diarrhea R19.7 confirmed 11463757 Problem Parkinson disease G20 Mar, Active confirmed 92676986 Problem Seizure disorder G40.909 Mar, Active confirmed 832045196 Problem Anxiety F41.9 Mar, Active confirmed 82624311 Problem Intellectual disability F79 confirmed 514839243 ALLERGIES Allergen (clinical drug ingredient) Drug/Non Drug Allergy documented on EMR Reaction Allergy Type Onset Date Status haloperidol HALOPERIDOL([facility] Code:[address]-82 ) Unknown , Active , , Drug Allergy 03/20/2016 Active ENCOUNTERS from 1974 to 2023-03-08 Encounter Location Date Provider Diagnosis [facility] [address] [place] [address] Mar, HARSH QUIROZ Encounter for Medica re annual wellness exam Z00.00 ; Chronic kidney disease, stage 3a N18.31 ; Seizure disorder G40.909 ; Parkinson disease G20 ; Hyperthyroidism E05.90 ; Intellectual disability F79 ; Anxiety F41.9 ; Diarrhea R19.7 and Encounter for immunization Z23 IMMUNIZATIONS Vaccine Route Administration Date Status COVID-19 [...] Score 0 REASON FOR REFERRAL No Information VITAL SIGNS Height 63 in Mar, Weight 98.6 lbs Mar, Weight-kg 44.72 kg Mar, Temperature 97.5 degrees Fahrenheit Mar, Heart Rate 100 bpm Mar, Respiratory Rate 18 bpm Mar, Oximetry 98 % Mar, BMI 17.46 kg/m2 Mar, Blood pressure systolic 101 mmHg Mar, Blood pressure diastolic 65 mmHg Mar, MEDICATIONS Medication SIG (Take, Route, Frequency, Duration) [...] y other day Active REASON FOR VISIT Medicare AWV/Seen with [facility] staff/CIELO Farfan MEDICAL (GENERAL) HISTORY Type Description Date Medical History Anxiety Medical History Seizure disorder Medical History Parkinson disease Medical History Long-term use of high-risk medic ation Medical History 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 Granado, [facility] [place] 2020 Surgical [facility] MENTAL STATUS No Information ASSESSMENTS Encounter Date Diagnosis Assessment Notes Treatment Notes Treatment Clinical Notes Mar, Encounter for Medicare annual wellness exam (ICD-10 - Z00.00) Mar, Chronic kidney disease, stage 3a (ICD-10 - N18.31) Continue follow up with nephrology. Mar, Hyperthyroidism (ICD-10 - E05.90) Nursing contacted endocrinology since she has not been seen since last June, latest lab results faxed as they had not received them. Nursing reports that endocrinology will call back after reviewing with provider. Action sent to nursing to follow up on this. Mar, Intellectual disability (ICD-10 - F79) [facility] at [facility]. Mar, Diarrhea (ICD-10 - R19.7) Patient is on multiple medications that can cause diarrhea. NAC has already been stopped. Recommend [facility] talk with psychiatrist about memantine and naltrexone; lexapro and topamax can both cause diarrhea as well. Mar, Encounter for immunization (ICD-10 - Z23) Mar, Seizure disorder (ICD-10 - G40.909) Continue follow up with Dr. Bhatt, neurologist. Mar, Parkinson disease (ICD-10 - G20) Continue follow up with neurologist - question if some of this is due to medication rather than true parkinsons. Mar, Anxiety (ICD-10 - F41.9) Continue clonidine. Continue follow up with psychiatrist. PLAN OF TREATMENT Treatment Notes Assessment Notes Clinical Notes Chronic kidney disease, stage 3a Continue follow up with nephrology. Seizure disorder Continue follow up with Dr. Bhatt, neurologist. Parkinson disease Continue follo w up with neurologist - question if some of this is due to medication rather than true parkinsons. Hyperthyroidism Nursing contacte d endocrinology since she has not been seen since last June, latest lab results faxed as they had not received them. Nursing reports that endocrinology will call back after reviewing with provider. Action sent to nursing to follow up on this. Intellectual disability Resides at [facility], [facility]. Anxiety Continue clonidi ne. Continue follow up with psychiatrist. Diarrhea Patient is on mu ltiple medications that can cause diarrhea. NAC has already been stopped. Recommend [facility] talk with psychiatrist about memantine and naltrexone; lexapro and topamax can both cause diarrhea as well. Next Appt Details 1 Year Reason:AWV Follow Up:1 YearAWV Insurance Providers Payer Name Payer Address Payer Phone Insured Name Patient Relationship to Insured Coverage Start Date Coverage End Date Subscriber Number Group Number [place] [address] [address] [facility] [id number] [phone] Brad Arce Self - patient is the insured [id number] [email or web address] [place] PART A [address] [facility] [phone] Brad Arce Self - patient is the insured [id number]
--- OUTSIDE RECORDS SUMMARY | 2023-05-12 12:14 | XMS REPORT ---
Author Author [facility] ter [facility] Address Unknown Phone Unavailable Care Team Providers Care Church Worker Name Role Phone HARSH QUIROZ Unavailable PROBLEMS Type Condition ICD9-CM Code [id number] Code Onset Dates Condition Status W/U Status Risk SNOMED Code Notes Problem Chronic kidney disease, stage 3a N18.31 confirmed 324160846 Problem Kidney disease, chronic, stage III (moderate, EGFR 30-59 ml/min) N18.3 confirmed 033514004 Problem Long-term use of high-risk medication Z79.899 Sep, Active confirmed 916994305 Problem Twitching R25.3 confirmed 394037964 Problem Diarrhea R19.7 confirmed 78363879 Problem Hyperthyroidi sm E05.90 confirmed 65069452 Problem Parkinson disease G20 Mar, Active confirmed 67644082 Problem Seizure disorder G40.909 Mar, Active confirmed 684574127 Problem Anxiety F41.9 Mar, Active confirmed 75965397 Problem Intellectual disability F79 confirmed 361012610 ALLERGIES Allergen (clinical drug ingredient) Drug/Non Drug Allergy documented on EMR Reaction Allergy Type Onset Date Status haloperidol HALOPERIDOL([facility] Code:[address]-30 ) Unknown , Active , , Drug Allergy 03/20/2016 Active ENCOUNTERS from 1975 to 2023-02-05 Encounter Location Date Provider Diagnosis [facility] [address] [address] [place] [address] Jan, HARSH QUIROZ Diarrhea R19.7 IMMUNIZATIONS Vaccine Route [...] 2017 Administered COVID-19 Pfizer (history) Unknown Sep 23, 2020 Ad ministered COVID-19 Pfizer (history) Unknown Sep 02, 2020 Ad ministered SOCIAL HISTORY Sex Assigned [...] y other day Active REASON FOR VISIT stool/Quiroz MEDICAL (GENERAL) HISTORY Type Description Date Medical History Anxiety Medical History Seizure disorder Medical History Parkinson disease Medical History Long-term use of high-risk medic ation Medical History 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 Granado, [place], normal 2020 Surgical History EGD/Colonoscopy, Dr. Nash, [facility] [place] 11/24/2021 MENTAL STATUS No Information ASSESSMENTS Encounter Date Diagnosis Assessment Notes Treatment Notes Treatment Clinical Notes Jan, Diarrhea (ICD-10 - R19.7) PLAN OF TREATMENT No Information Insurance Providers Payer Name Payer Address Payer Phone Insured Name Patient Relationship to Insured Coverage Start Date Coverage End Date Subscriber Number Group Number [place] [address] [address] [facility] [id number] Brad Arce Self - patient is the insured [id number] [employer] [place] PART A [address] [facility] [address] Brad Arce Self - patient is the insured [id number]
--- OUTSIDE RECORDS SUMMARY | 2023-05-12 12:14 | XMS REPORT ---
Author Author [facility] Address Unknown Phone Unavailable Care Team Providers Care Specimen Accessioner Name Role Phone HARSH QUIROZ Unavailable PROBLEMS Type Condition ICD9-CM Code [id number] Code Onset Dates Condition Status W/U Status Risk SNOMED Code Notes Problem Chronic kidney disease, stage 3a N18.31 confirmed 867596381 Problem Kidney disease, chronic, stage III (moderate, EGFR 30-59 ml/min) N18.3 confirmed 432683122 Problem Long-term use of high-risk medication Z79.899 Sep, Active confirmed 912750764 Problem Twitching R25.3 confirmed 215270480 Problem Diarrhea R19.7 confirmed 02391898 Problem Hyperthyroidi sm E05.90 confirmed 47993019 Problem Parkinson disease G20 Mar, Active confirmed 00528784 Problem Seizure disorder G40.909 Mar, Active confirmed 573827613 Problem Anxiety F41.9 Mar, Active confirmed 83276118 Problem Intellectual disability F79 confirmed 112064517 ALLERGIES Allergen (clinical drug ingredient) Drug/Non Drug Allergy documented on EMR Reaction Allergy Type Onset Date Status haloperidol HALOPERIDOL([facility] Code:[address]-02 ) Unknown , Active , , Drug Allergy 03/20/2016 Active ENCOUNTERS from 1974 to 2023-02-04 Encounter Location Date Provider Diagnosis [facility] [address] [place] [address] Jan, JEQUITA QUIROZ IMMUNIZATIONS Vaccine Route Administration [...] y other day Active REASON FOR VISIT *Diarrhea MEDICAL (GENERAL) HISTORY Type Description Date Medical History Anxiety Medical History Seizure disorder Medical History Parkinson disease Medical History Long-term use of high-risk medic ation Medical History 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 Granado, [place], normal 2020 [facility] [place] [facility] MENTAL STATUS No Information PLAN OF TREATMENT No Information Insurance Providers Payer Name Payer Address Payer Phone Insured Name Patient Relationship to Insured Coverage Start Date Coverage End Date Subscriber Number Group Number [place] [address] [address] [facility] [id number] Brad Arce Self - patient is the insured [id number] [employer] [place] PART A [address] [facility] [address] Brad Arce Self - patient is the insured [id number]
--- OUTSIDE RECORDS SUMMARY | 2023-05-12 12:14 | XMS REPORT ---
Author Author [facility] ter [facility] Address Unknown Phone Unavailable Care Team Providers Care Lamination Spinner Name Role Phone HARSH QUIROZ Unavailable PROBLEMS Type Condition ICD9-CM Code [id number] Code Onset Dates Condition Status W/U Status Risk SNOMED Code Notes Problem Chronic kidney disease, stage 3a N18.31 confirmed 508024096 Problem Kidney disease, chronic, stage III (moderate, EGFR 30-59 ml/min) N18.3 confirmed 799065787 Problem Long-term use of high-risk medication Z79.899 Sep, Active confirmed 428718863 Problem Twitching R25.3 confirmed 599501357 Problem Diarrhea R19.7 confirmed 18058570 Problem Hyperthyroidi sm E05.90 confirmed 96273825 Problem Parkinson disease G20 Mar, Active confirmed 28565581 Problem Seizure disorder G40.909 Mar, Active confirmed 639573863 Problem Anxiety F41.9 Mar, Active confirmed 90614020 Problem Intellectual disability F79 confirmed 697460805 ALLERGIES Allergen (clinical drug ingredient) Drug/Non Drug Allergy documented on EMR Reaction Allergy Type Onset Date Status haloperidol HALOPERIDOL([facility] Code:[address]-12 ) Unknown , Active , , Drug Allergy 03/20/2016 Active ENCOUNTERS from 1975 to 2022-11-13 Encounter Location Date Provider Diagnosis [facility] [address] [place] [address] November, HARSH QUIROZ IMMUNIZATIONS Vaccine Route Administration Date Status PRIVATE [...] day Active REASON FOR VISIT [facility] MEDICAL (GENERAL) HISTORY Type Description Date Medical History Anxiety Medical History Seizure disorder Medical History Parkinson disease Medical History Long-term use of high-risk medic ation Medical History 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 Granado, [place], normal 2020 Surgical History EGD/Colonoscopy, Dr. Nash, [facility] [place] 11/24/2021 MENTAL STATUS No Information PLAN OF TREATMENT No Information Insurance Providers Payer Name Payer Address Payer Phone Insured Name Patient Relationship to Insured Coverage Start Date Coverage End Date Subscriber Number Group Number [place] [address] [address] [facility] [address] Brad Arce Self - patient is the insured [id number] Take the Interview [place] PART A [address] [facility] [address] Brad Arce Self - patient is the insured [id number]
--- OUTSIDE RECORDS SUMMARY | 2023-05-12 12:14 | XMS REPORT ---
Author Author [facility] ter [facility] ter [facility] Address Unknown Phone Unavailable Care Team Providers Care Protocol Manager Name Role Phone HARSH QUIROZ Unavailable PROBLEMS Type Condition ICD9-CM Code [id number] Code Onset Dates Condition Status W/U Status Risk SNOMED Code Notes Problem Chronic kidney disease, stage 3a N18.31 confirmed 171004086 Problem Kidney disease, chronic, stage III (moderate, EGFR 30-59 ml/min) N18.3 confirmed 367706386 Problem Long-term use of high-risk medication Z79.899 Sep, Active confirmed 345248081 Problem Twitching R25.3 confirmed 417209827 Problem Diarrhea R19.7 confirmed 61367377 Problem Hyperthyroidi sm E05.90 confirmed 17780089 Problem Parkinson disease G20 Mar, Active confirmed 85830848 Problem Seizure disorder G40.909 Mar, Active confirmed 036615263 Problem Anxiety F41.9 Mar, Active confirmed 53087993 Problem Intellectual disability F79 confirmed 151723222 ALLERGIES Allergen (clinical drug ingredient) Drug/Non Drug Allergy documented on EMR Reaction Allergy Type Onset Date Status haloperidol HALOPERIDOL([facility] Code:[address]-32 ) Unknown , Active , , Drug Allergy 03/20/2016 Active ENCOUNTERS from 1975 to 2023-02-18 Encounter Location Date Provider Diagnosis [facility] [address] [place] [address] Mar, HARSH QUIROZ Long-term use of high-risk medication [...] other day Active PROCEDURES from 1974 to 2023-02-18 Procedure Date Ordered Date Performed Result Body Sit e ROUTINE VENIPUNCTURE 2021-03-11 2021-03-11 N/A REASON FOR VISIT Lab/Dr. 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 [place] [facility] MENTAL STATUS No Information ASSESSMENTS Encounter Date Diagnosis Assessment Notes Treatment Notes Treatment Clinical Notes Mar, Long-term use of high-risk medication (ICD-10 - Z79.899) PLAN OF TREATMENT No Information Insurance Providers Payer Name Payer Address Payer Phone Insured Name Patient Relationship to Insured Coverage Start Date Coverage End Date Subscriber Number Group Number [place] [address] [address] [facility] [address] Brad Arce Self - patient is the insured [id number] [employer] [place] PART A [address] [facility] [address] Brad Arce Self - patient is the insured [id number]
--- OUTSIDE RECORDS SUMMARY | 2023-05-12 12:14 | XMS REPORT ---
Author Author [facility] ter [facility] Address Unknown Phone Unavailable Care Team Providers Care Account Manager B2B Name Role Phone HARSH QUIROZ Unavailable PROBLEMS Type Condition ICD9-CM Code [id number] Code Onset Dates Condition Status W/U Status Risk SNOMED Code Notes Problem Chronic kidney disease, stage 3a N18.31 confirmed 968717806 Problem Kidney disease, chronic, stage III (moderate, EGFR 30-59 ml/min) N18.3 confirmed 814155583 Problem Long-term use of high-risk medication Z79.899 Sep, Active confirmed 353783213 Problem Twitching R25.3 confirmed 598695259 Problem Diarrhea R19.7 confirmed 89590373 Problem Hyperthyroidi sm E05.90 confirmed 31213080 Problem Parkinson disease G20 Mar, Active confirmed 97176608 Problem Seizure disorder G40.909 Mar, Active confirmed 823947474 Problem Anxiety F41.9 Mar, Active confirmed 67029418 Problem Intellectual disability F79 confirmed 835064349 ALLERGIES Allergen (clinical drug ingredient) Drug/Non Drug Allergy documented on EMR Reaction Allergy Type Onset Date Status haloperidol HALOPERIDOL([facility] Code:[address]-86 ) Unknown , Active , , Drug Allergy 03/20/2016 Active ENCOUNTERS from 1975 to 2023-01-30 Encounter Location Date Provider Diagnosis [facility] [address] [place] [address] Jan, HARSH QUIROZ Hyperthyroidism E05. 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 Granado, [place], normal 2020 [facility] MENTAL STATUS No Information ASSESSMENTS Encounter Date Diagnosis Assessment Notes Treatment Notes Treatment Clinical Notes Jan, Hyperthyroidism (ICD-10 - E05.90) PLAN OF TREATMENT Future Test Test Name Order Date TSH w/ FREE T4 [id number] TSH w/ FREE T4 [id number] Insurance Providers Payer Name Payer Address Payer Phone Insured Name Patient Relationship to Insured Coverage Start Date Coverage End Date Subscriber Number Group Number [facility] PART A [address] [facility] [phone] Brad Arce Self - patient is the insured [id number] [place] [address] [address] [facility] [id number] [phone] Brad Arce Self - patient is the insured [id number]
--- OUTSIDE RECORDS SUMMARY | 2023-05-12 12:14 | XMS REPORT ---
Author Author [facility] ter [facility] Address Unknown Phone Unavailable Care Team Providers Care Painter And Body Mechanic Apprentice Name Role Phone HARSH QUIROZ Unavailable PROBLEMS Type Condition ICD9-CM Code [id number] Code Onset Dates Condition Status W/U Status Risk SNOMED Code Notes Problem Chronic kidney disease, stage 3a N18.31 confirmed 926227713 Problem Kidney disease, chronic, stage III (moderate, EGFR 30-59 ml/min) N18.3 confirmed 548809645 Problem Long-term use of high-risk medication Z79.899 Sep, Active confirmed 862465508 Problem Twitching R25.3 confirmed 760949047 Problem Diarrhea R19.7 confirmed 75409302 Problem Hyperthyroidi sm E05.90 confirmed 74574316 Problem Parkinson disease G20 Mar, Active confirmed 87811724 Problem Seizure disorder G40.909 Mar, Active confirmed 124050496 Problem Anxiety F41.9 Mar, Active confirmed 81280880 Problem Intellectual disability F79 confirmed 594686853 ALLERGIES Allergen (clinical drug ingredient) Drug/Non Drug Allergy documented on EMR Reaction Allergy Type Onset Date Status haloperidol HALOPERIDOL([facility] Code:[address]-00 ) Unknown , Active , , Drug Allergy 03/20/2016 Active ENCOUNTERS from 1974 to 2023-02-16 Encounter Location Date Provider Diagnosis [facility] [address] [place] [address] Jan, HARSH QUIROZ Long-term use of high-risk [...] other day Active PROCEDURES from 1974 to 2023-02-16 Procedure Date Ordered Date Performed Result Body Sit e ROUTINE VENIPUNCTURE 2021-02-11 2021-02-11 N/A REASON FOR VISIT Lab/[facility] MEDICAL (GENERAL) HISTORY Type Description Date Medical History Anxiety Medical History Seizure disorder Medical History Parkinson disease Medical History Long-term use of high-risk medic ation Medical History 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 MENTAL STATUS No Information ASSESSMENTS Encounter Date Diagnosis Assessment Notes Treatment Notes Treatment Clinical Notes Sep, Long-term use of high-risk medication (ICD-10 - Z79.899) PLAN OF TREATMENT No Information Insurance Providers Payer Name Payer Address Payer Phone Insured Name Patient Relationship to Insured Coverage Start Date Coverage End Date Subscriber Number Group Number [place] [employer] [place] [address] [address] [facility] [id number] Brad Arce Self - patient is the insured [id number] [employer] [place] PART A [address] [facility] [id number] Brad Arce Self - patient is the insured [id number]
--- OUTSIDE RECORDS SUMMARY | 2023-05-12 12:14 | XMS REPORT ---
Author Author [facility] ter [facility] Address Unknown Phone Unavailable Care Team Providers Care Food Production Manager Name Role Phone HARSH QUIROZ Unavailable PROBLEMS Type Condition ICD9-CM Code THY50-IE Code Onset Dates Condition Status W/U Status Risk SNOMED Code Notes Problem Chronic kidney disease, stage 3a N18.31 confirmed 689165945 Problem Kidney disease, chronic, stage III (moderate, EGFR 30-59 ml/min) N18.3 confirmed 383461262 Problem Long-term use of high-risk medication Z79.899 Sep, Active confirmed 291709214 Problem Twitching R25.3 confirmed 677196501 Problem Diarrhea R19.7 confirmed 26729818 Problem Hyperthyroidi sm E05.90 confirmed 60898325 Problem Parkinson disease G20 Mar, Active confirmed 45223598 Problem Seizure disorder G40.909 Mar, Active confirmed 432413680 Problem Anxiety F41.9 Mar, Active confirmed 54002495 Problem Intellectual disability F79 confirmed 139330244 ALLERGIES Allergen (clinical drug ingredient) Drug/Non Drug Allergy documented on EMR Reaction Allergy Type Onset Date Status haloperidol HALOPERIDOL([facility] Code:[address]-00 ) Unknown , Active , , Drug Allergy 03/20/2016 Active ENCOUNTERS from 1974 to 2022-11-17 Encounter Location Date Provider Diagnosis [facility] [address] [place] [address] [place] [address] November, HARSH QUIROZ Hyperthyroidism E05. 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 Granado [facility] janes, normal 2020 Surgical History EGD/Colonoscopy, Dr. Nash, [facility] [place] 11/24/2021 MENTAL STATUS No Information ASSESSMENTS Encounter Date Diagnosis Assessment Notes Treatment Notes Treatment Clinical Notes November, Hyperthyroidism (ICD-10 - E05.90) November, Chronic kidney disease, stage 3a (ICD-10 - N18.31) November, Long-term use of high-risk medication (ICD-10 - Z79.899) PLAN OF TREATMENT No Information Insurance Providers Payer Name Payer Address Payer Phone Insured Name Patient Relationship to Insured Coverage Start Date Coverage End Date Subscriber Number Group Number [place] [employer] [place] [address] [address] [facility] [id number] Brad Arce Self - patient is the insured [id number] [employer] [place] A [address] [facility] [address] Brad Arce Self - patient is the insured [id number]
--- OUTSIDE RECORDS SUMMARY | 2023-05-12 12:14 | XMS REPORT ---
Author Author [facility] ter [facility] ter [facility] Address Unknown Phone Unavailable Care Team Providers Care Hairpiece Stylist Name Role Phone HARSH QUIROZ Unavailable PROBLEMS Type Condition ICD9-CM Code CDW35-AT Code Onset Dates Condition Status W/U Status Risk SNOMED Code Notes Problem Chronic kidney disease, stage 3a N18.31 confirmed 614088661 Problem Stage 3b chronic kidney disease (CKD) N18.32 confirmed 289918684 Problem Anxiety F41.9 Mar, Active confirmed 79546785 Problem Twitching R25.3 confirmed 296077024 Problem Kidney disease, chronic, stage III (moderate, EGFR 30-59 ml/min) N18.3 confirmed 108143893 Problem Hyperthyroidi sm E05.90 confirmed 47212914 Problem Diarrhea R19.7 confirmed 00482231 Problem Seizure disorder G40.909 Mar, Active confirmed 078374384 Problem Parkinson disease G20 Mar, Active confirmed 34531799 Problem Long-term use of high-risk medication Z79.899 Sep, Active confirmed 415191450 Problem Intellectual disability F79 confirmed 401084470 ALLERGIES Allergen (clinical drug ingredient) Drug/Non Drug Allergy documented on EMR Reaction Allergy Type Onset Date Status haloperidol HALOPERIDOL([facility] Code:[address]-27 ) Unknown , Active , , Drug Allergy 03/20/2016 Active ENCOUNTERS from 1974 to 2023-03-01 Encounter Location Date Provider Diagnosis [facility] [address] [place] [address] Mar, HARSH QUIROZ IMMUNIZATIONS Vaccine Route Administration Date [...] influenza (history) Unknown May 21, 2016 Administ marizad influenza (history) Unknown Jun 18, 2014 Administ tanvir PRIVATE PPSV23 (PNEUMOVAX) IM Intramuscular Mar 26 21 Administered SOCIAL HISTORY Sex Assigned At : [...] high-risk medic ation Medical History 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 Granado, [facility] [place], [place] 2020 Surgical [facility] MENTAL STATUS No Information PLAN OF TREATMENT No Information Insurance Providers Payer Name Payer Address Payer Phone Insured Name Patient Relationship to Insured Coverage Start Date Coverage End Date Subscriber Number Group Number [employer] PART A [address] [facility] [phone] Brad Arce Self - patient is the insured [id number] [place] [address] [address] [facility] [id number] [phone] Brad Arce Self - patient is the insured [id number]
--- NOTE | 2023-05-12 12:22 | Occupational Therapy Eval ---
OT Evaluation-General/PLF Medical Diagnosis Admission Date May 12, 2023 at 12:00 Medical Diagnosis: SDH Onset Date: May 05, 2023 Therapy Diagnosis Therapy Diagnosis: decreased ADL status Referral Physician: Chavez Referral Reason: Evaluation/Treatment Medical History Additional Medical History mental disorder, moderate ID, Parkinson's, seborrheic dermatitis of scalp, seizure disorder, thyroid disease, tremor Current History 05/05/23 transfer to [facility] ED from [facility] after fall. CT significant for 2 SDH. no surgical intervention. leukocytosis 2/2 dehydration. transfer to ARU 05/12/23 Social History Home: [facility] ADL-Prior Level of Function SCALE: Activities may be completed with or without assistive devices. 4-Vamdmpzyac-owjnycz completes the activity by him/herself with no assistance from a helper. 5-Set-up or Clean-up Assistance-helper sets up or cleans up; patient completes activity. [place] assists only prior to or following the activity. 4-Supervision or Touching Assistance-helper provides verbal cues and/or touching/steadying and/or contact guard assistance as patient completes a ctivity. Assistance may be provided throughout the activity or intermittently. 3-Partial/Moderate Assistance-helper does LESS THAN HALF the effort. [place] lifts, holds or supports trunk or limbs, but provides less than half the effort. 2-Substantial/Maximal Assistance-helper does MORE THAN HALF the effort. [place] lifts or holds trunk or limbs and provides more than half the effort. 8-Xuvwkprzq-hbcvoq does ALL the effort. Patient does none of the effort to complete the activity. Or, the assistance of 2 or more helpers is required for the patient to complete the activity. If activity was not attempted, code reason: 7-Patient Refused. 9-Not Applicable-not attempted and the patient did not perform the activity before the current illness, exacerbation or injury. 10-Not Attempted due to Environmental Limitations-(lack of equipment, weather restraints, etc.). 88-Not Attempted due to Medical Conditions or Safety Concerns. ADL PLOF Comments Per chart review, pt was independent with ADLs and functional mobility prior to ~2 months ago. In the last 2 months, facility reports physical cognitive decline. Self Care: Needed Some Help Functional Cognition: Needed Some Help OT Current Status Subjective Pt agreeable to therapy tx. She verbalized "yes" when asked about pain but unable to state where. During tx, pt brought hand to head, OT asked pt is she had a headache, pt states "yes". When presented with a visual pain scale, pt pointed to "4" Echolalia noted during tx. Mental Status/Objective Patient Orientation: Person, MR Current Upper Extremity ROM Pt had some difficulty following instructions. WFL ROM visualized during ADL tx. Pt able to reach arms overhead in order to put hair into a ponytail, she was able to bring R hand behind her during posterior hygiene post toileting. Upper Extremity Coordination WFL, pt able to open containers Upper Extremity Strength unable to formally assess due to difficulty following instructions. Grossly 3+/5 ADL-Treatment Eating (QC): 5 Oral Hygiene (QC): 3 Shower/Bathe Self (QC): 7 (pt completed earlier today) Upper Body Dressing (QC): 7 (pt completed earlier today) Lower Body Dressing (QC): 7 (pt completed earlier today) On/Off Footwear (QC): 7 (pt completed earlier today) Toileting Hygiene (QC): 3 (Min A with hygiene for thoroughness. Pt able to manage clothing.) Other Treatments OT evaluation complete. Pt unable to provide information about PLOF/home set up, information obtained from chart review from OSH. OT/PT cotreat due to skill of 2 clinicians required which a director of rehabilitation and wellness could not perform in order to coordinate UE/LEs, decrease fall risk, and due to pt's limitations in strength, mobility, transfers, cognition, safety. OT foucused on UE placement, cues for sequencing and safety and ADLS, PT focused on LE placement, gross overall movement, transfers/mobility. Pt performed functional mobility/transfers without AD including even and uneven surface, car transfer, toilet transfer, stairs. Pt completed toileting, able to mange clothing and hygiene with VCs for sequencing, assistance required for thoroughness with hygiene. Post tx, pt in therapy gym, VENEER GLUER/RENETTA present for continued therapy. All needs met. Education OT Patient Education: Correct positioning, Energy conservation, Modified ADL techniques, Progress toward Goal/Update tx plan, Purpose of tx/functional activities, Rehab process Teaching Recipient: Patient Teaching Methods: Demonstration, Discussion Response to Teaching: Reinforcement Needed BIMS CAM BIMS Expression of Ideas and Wants: Frequently Understanding Verbal Content: Sometimes Understands Brief Interview/Mental Status: Yes IRF MARA BIMS: IRF MARA BIMS Response (Comments) Value Repitition of Three Words None 0 Recalls Socks No, Could Not Recall 0 Recalls Blue No, Could Not Recall 0 Recalls Bed No, Could Not Recall 0 Year Missed by 5 Yrs/No Answer 0 Month Missed by 1 Mo/No Answer (Wednesday) 0 Day Incorrect or No Answer 0 Total 0 Notes: BIMS attempted, but pt did not repeat any words when asked. She did not respond when asked what year or month it is. When OT asked pt what day it is she replied Wednesday. CAM Mental Status Change/Baseline: 1 Inattention: 1 Disorganized thinkin Altered level of consciousness: 0 OT Police Patrol Lieutenant Goals Jail Goals Time Frame: May 28, 2023 Eating (QC): 6 Oral Hygiene (QC): 4 Toileting Hygiene (QC): 4 Shower/Bathe Self (QC): 4 Upper Body Dressing (QC): 4 Lower Body Dressing (QC): 4 On/Off Footwear (QC): 4 Additional Goals: 1-Demonstrate ADL Tasks, 2-Verbalize Understanding, 3- ImproveStrength/Stefania 1=Demonstrate adherence to instructed precautions during ADL tasks. 2=Patient will verbalize/demonstrate understanding of assistive devices/modifications for ADL. 3=Patient will improve strength/tolerance for activity to enable patient to perform ADL's. OT Education/Plan Problem List/Assessment Assessment: Decreased Activ Tolerance, Decreased UE Strength, Impaired Cognition, Impaired Coordination, Impaired Funct Balance, Impaired I ADL's, Impaired Self-Care Skills Discharge Recommendations Plan/Recommendations: Continue POC Treatment Plan/Plan of Care Patient would benefit from OT for education, treatment and training to promote independence in ADL's, mobility, safety and/or upper extremity function for ADL's. Plan of Care: ADL Retraining, Functional Mobility, Group Exercise/Act as Ind, UE Funct Exercise/Act Treatment Duration: May 28, 2023 Frequency: At least 5 of 7 days/Wk (IRF) Estimated Hrs Per Day: Other (75 mins per day) Agreement: Yes Rehab Potential: Good Time Start Time: 12:00 (8217-4601 OT eval x15') Stop Time: 12:50 (8852-2007 cotreat x20') DATE: May 12, 2023 Total Time Billed (hr/min): 35 Billed Treatment Time 1, EVM (15'), ADL (20') KAITLYN WASHINGTON OT May 12, 2023 12:22
[2023-05-12] MEDS ORDERED: CALC1TAB31 PO (12:55)
[2023-05-12] MEDS ORDERED: ACET-2267 PO (12:55)
[2023-05-12] MEDS ORDERED: LAMO25TA8 PO (12:55)
[2023-05-12] MEDS ORDERED: COLE1TAB PO (12:55)
[2023-05-12] MEDS ORDERED: METH5TAB95 PO (12:55)
[2023-05-12] MEDS ORDERED: CLN.1T PO (12:55)
[2023-05-12] MEDS ORDERED: TOPI100T11 PO (12:55)
[2023-05-12] MEDS ORDERED: NF-CLINGEL TOP (12:55)
[2023-05-12] MEDS ORDERED: [UNRECOGNIZED DRUG - CODE] PO (12:55)
[2023-05-12] MEDS ORDERED: LOPE2CAP PO (12:55)
[2023-05-12] MEDS ORDERED: BENZ-36 PO (12:55)
[2023-05-12] MEDS ORDERED: CLT4KB PO (12:55)
[2023-05-12] MEDS ORDERED: ESCI-2 PO (12:55)
[2023-05-12] MEDS ORDERED: LACT1CAP39 PO (12:55)
[2023-05-12] MEDS ORDERED: MEDR150V13 IM (12:55)
[2023-05-12] MEDS ORDERED: METO50TA15 PO (12:55)
[2023-05-12] MEDS ORDERED: MULT-569 PO (12:55)
--- NOTE | 2023-05-12 12:59 | Physical Therapy Evaluation ---
PT Evaluation-General Medical Diagnosis Admission Date May 12, 2023 at 12:00 Medical Diagnosis: SDH Onset Date: May 05, 2023 Therapy Diagnosis Therapy Diagnosis: Weakness, Unsteadiness on feet Precautions Precautions/Isolations: Fall Prevention, Standard Precautions Weight Bear Status Right Lower Extremity: Right Full Weight Bearing Left Lower Extremity: Left Full Weight Bearing Referral Physician: Chavez Reason for Referral: Evaluation/Treatment Medical History Pertinent Medical History: Parkinson's Additional Medical History mental disorder, moderate ID, Parkinson's, seborrheic dermatitis of scalp, seizure disorder, thyroid disease, tremor Current History 05/05/23 transfer to [facility] ED from [facility] after fall. CT significant for 2 SDH. no surgical intervention. leukocytosis 2/2 dehydration. Transfer to ARU 05/12/23 Reviewed History: Yes Social History Home: Current Living Status: Pt lives in a usp; unable to obtain any other information from the pt Prior Prior Level of Function SCALE: Activities may be completed with or without assistive devices. 6-Lfruvxooak-kmtpbls completes the activity by him/herself with no assistance from a helper. 5-Set-up or Clean-up Assistance-helper sets up or cleans up; patient completes activity. [place] assists only prior to or following the activity. 4-Supervision or Touching Assistance-helper provides verbal cues and/or touching/steadying and/or contact guard assistance as patient completes activity. Assistance may be provided throughout the activity or intermittently. 3-Partial/Moderate Assistance-helper does LESS THAN HALF the effort. [place] lifts, holds or supports trunk or limbs, but provides less than half the effort. 2-Substantial/Maximal Assistance-helper does MORE THAN HALF the effort. [place] lifts or holds trunk or limbs and provides more than half the effort. 4-Klhxogawi-myftsc does ALL the effort. Patient does none of the effort to complete the activity. Or, the assistance of 2 or more helpers is required for the patient to complete the activity. If activity was not attempted, code reason: 7-Patient Refused. 9-Not Applicable-not attempted and the patient did not perform the activity before the current illness, exacerbation or injury. 10-Not Attempted due to Environmental Limitations-(lack of equipment, weather restraints, etc.). 88-Not Attempted due to Medical Conditions or Safety Concerns. Bed Mobility: 6 Transfers (B,C,W/C): 6 Gait: 6 Stairs: 6 Wheelchair Mobility: 9 Indoor Mobility (Ambulation): Independent Stairs: Independent Prior Devices Use: None Per chart review, pt was independent with ADLs and functional mobility prior to ~2 months ago. In the last 2 months, facility reports physical and cognitive decline. PT Evaluation-Current Subjective Pt is agreeable to PT. Pt reported headache pain at 4/10, per VAS Pain Numeric Pain Scale: 4 Location Body Site: Head Section J - Health Conditions 1. Rarely or not at all 2. Occasionally 3. Frequently 4. Almost constantly 8. Unable to answer Pain Effect on Sleep: 2 Pain Interference with Therapy: 2 Pain Interference w/Day-to-Day: 2 Pt/Family Goals Safely return to usp Objective Patient Orientation: Person, MR ROM/Strength ROM Upper Extremities See OT eval ROM Lower Extremities WFL Strength Upper Extremities See OT eval Strength Lower Extremities B LE MMT = 3+/5 grossly Integumentary/Posture Integumentary See nurses note Bowel Incontinence: No Bladder Incontinence: No Sensory Vision: Functional Hearing: Functional Hand Dominance: Right Sensation Right Upper Extremit: Intact Sensation Left Upper Extremity: Intact Sensation Right Lower Extremit: Intact Sensation Left Lower Extremity: Intact Transfers Roll Left & Right (QC): 4 (SBA ) Sit to Lying (QC): 4 (SBA ) Lying to Sitting/Side of Bed(Q: 4 (SBA ) Sit to Stand (QC): 4 (CGA ) Chair/Sbd-hm-Shrxy Xfer(QC): 4 (CGA ) Toilet Transfer (QC): 4 (CGA ) Car Transfer (QC): 4 (CGA ) Gait Does the Patient Walk?: Yes Mode of Locomotion: Walk Anticipated Mode of Locomotion: Walk Walk 10 feet (QC): 3 (Min A for balance ) Walk 50 ft with 2 Turns(QC): 3 (Min A for balance ) Walk 150 ft (QC): 3 (Min A for balance ) Walking 10ft/uneven surface-QC: 3 (Min A for balance ) Distance: 150ft Gait Assistive Device: None Wheelchair Training Does the Pt Use a Wheelchair?: No Wheel 50 ft with 2 turns (QC): 9 Wheel 150 ft (QC): 9 Type of Wheelchair: N/A Stairs #of Steps: 12 1 Step (curb) (QC): 3 (Min A for balance ) 4 Steps (QC): 3 (Min A for balance ) 12 Steps (QC): 3 (Min A for balance ) Balance Sitting Static: Good Sitting Dynamic: Good Standing Static: Fair Standing Dynamic: Fair Picking up an Object (QC): 3 (Min A for balance ) Special Test Comments KU standing balance score = 3+/5 (goal = 4+/5) Treatment PT eval completed. Pt unable to provide information about PLOF/home set up, information obtained from chart review from OSH. PT/OT co-tx from [id number], due to skill of 2 clinicians required which a rehab specialist could not perform in order to coordinate UE/LEs, decrease fall risk, and due to pt's limitations in strength, mobility, transfers, cognition, and safety. PT focused on LE placement, gross overall movement, bed mobility, transfers, walking, and stairs. OT foucused on UE placement, cues for sequencing and safety and ADLS. Pt completed bed mobility with SBA. Pt completed functional transfers with CGA. Pt ambulated 150ft with no AD and Min A for balance/safety. Pt completed 12 steps with 1-2 HR and Min A for safety. Pt completed toileting, able to mange clothing and hygiene with VCs for sequencing, assistance required for thoroughness with hygiene. Post tx, pt in therapy gym, with VENEER REDRIER/PROCUREMENT CONSULTANT present for continued therapy. All needs met. Assessment/Needs Pt tolerated PT well, with good effort Rehab Potential: Good Post Rehab Potential-Barriers: Balance, cognition Equipment Needs N/A PT Chief Maintenance Supervisor Goals Alf Goals PT Chief Maintenance Supervisor Goals Time Frame: May 26, 2023 Roll Left to Right (QC): 6 (Pt will be Mod I with bed mobility tasks and functional transfers. ) Sit to Lying (QC): 6 (Pt will be Mod I with bed mobility tasks and functional transfers. ) Lying-Sitting on Side/Bed(QC): 6 (Pt will be Mod I with bed mobility tasks and functional transfers. ) Sit to Stand (QC): 6 (Pt will be Mod I with bed mobility tasks and functional transfers. ) Chair/Alq-dt-Irlgr Xfer(QC): 6 (Pt will be Mod I with bed mobility tasks and functional transfers. ) Toilet/Commode Transfer (QC): 6 (Pt will be Mod I with bed mobility tasks and functional transfers. ) Car Transfer (QC): 6 (Pt will be Mod I with bed mobility tasks and functional transfers. ) Does the Patient Walk: Yes Walk 10 feet (QC): 4 (Pt will be SBA/CGA for walking. ) Walk 10ft-Uneven Surface(QC): 4 (Pt will be SBA/CGA for walking. ) Walk 50ft with 2 Turns (QC): 4 (Pt will be SBA/CGA for walking. ) Walk 150 ft (QC): 4 (Pt will be SBA/CGA for walking. ) Does the Pt use WC or Scooter?: No Wheel 50 feet with 2 turns (QC: 9 Type: N/A Wheel 150 feet: 9 Type: N/A 1 Step (curb) (QC): 4 (Pt will be SBA/CGA for steps ) 4 Steps (QC): 4 (Pt will be SBA/CGA for steps ) 12 Steps (QC): 4 (Pt will be SBA/CGA for steps ) Picking up an Object (QC): 4 (Pt will be SBA/CGA for picking up an object ) KU standing balance goal = 4+/5 PT Plan Problem List Problem List: Activity Tolerance, Functional Strength, Safety, Balance, Gait, Transfer, Bed Mobility, ROM Treatment/Plan Treatment Plan: Continue Plan of Care Treatment Plan: Bed Mobility, Education, Functional Activity Stefania, Functional Strength, Group Therapy, Gait, Safety, Therapeutic Exercise, Transfers Treatment Duration: May 26, 2023 Frequency: At least 5 of 7 days/Wk (IRF) Estimated Hrs Per Day: Other (75 min/day ) Patient and/or Family Agrees t: Yes Safety Risks/Education Patient Education: Gait Training, Transfer Techniques, Steps, Correct Positioning, Safety Issues Teaching Recipient: Patient Teaching Methods: Demonstration, Discussion Response to Teaching: Reinforcement Needed Discharge Recommendations Therapy Discharge Recommendati: Other, See Comments (Snf ) Equpiment Recommendations-D/C: None Discharge Status/Home Program Cont per POC Barriers to Progress Cognition, balance/safety Target Placement Snf Time Time In: 1215 Time Out: 1250 DATE: May 12, 2023 Total Billed Treatment Time: 35 Total Billed Treatment 35 min total from [id number]; 20 min co-tx from [id number] 1 visit EVM GT x 1 SMITA HARRIS PT May 12, 2023 12:59
--- NOTE | 2023-05-12 13:14 | Occupational Ther Daily Note ---
OT Current Status-Daily Note Subjective Pt alert, took over care for OTR/L. Pt agrees to therapy. Co-treat with PT([id number]), skills of 2 clinicians required to decrease fall risk and monitor pt's reaching/grasping items throughout ambulation. PT focusing on ambulation and OT focusing on functional tasks and decreasing sensory needs for oral fixa tion during ambulation. Mental Status/Objective Patient Orientation: Person, MR, [place] ADL-Treatment Therapy Code Descriptions/Definitions Functional [place] Measure: 0=Not Assessed/NA 4=Minimal Assistance 1=Total Assistance 5=Supervision or Setup 2=Maximal Assistance 6=Modified [place] 3=Moderate Assistance 7=Complete IndependenceSCALE: Activities may be completed with or without assistive devices. 8-Xrlvkqgply-lopthuz completes the activity by him/herself with no assistance f rom a helper. 5-Set-up or Clean-up Assistance-helper sets up or cleans up; patient completes activity. [place] assists only prior to or following the activity. 4-Supervision or Touching Assistance-helper provides verbal cues and/or touching/steadying and/or contact guard assistance as patient completes activity. Assistance may be provided throughout the activity or intermittently. 3-Partial/Moderate Assistance-helper does LESS THAN HALF the effort. [place] lifts, holds or supports trunk or limbs, but provides less than half the effort. 2-Substantial/Maximal Assistance-helper does MORE THAN HALF the effort. [place] lifts or holds trunk or limbs and provides more than half the effort. 0-Tpxljivxs-ktheit does ALL the effort. Patient does none of the effort to complete the activity. Or, the assistance of 2 or more helpers is required for the patient to complete the activity. If activity was not attempted, code reason: 7-Patient Refused. 9-Not Applicable-not attempted and the patient did not perform the activity before the current illness, exacerbation or injury. 10-Not Attempted due to Environmental Limitations-(lack of equipment, weather restraints, etc.). 88-Not Attempted due to Medical Conditions or Safety Concerns. Eating (QC): 5 (Set up for eating) Other Treatment Pt ambulates with SBA/CGA without AD. Monitoring closely due to pt reaching and taking cups with straws and attempting to drink. After therapy, WELLNESS PROGRAM COORDINATOR took over care for swallow evaluation. All needs met. OT Correction Goals Electrical Prospecting Operator Goals Time Frame: May 28, 2023 Acute change in mental status: 1 Inattention: 1 Disorganized thinkin Altered level of consciousness: 0 Eating (QC): 6 Oral Hygiene (QC): 4 Toileting Hygiene (QC): 4 Shower/Bathe Self (QC): 4 Upper Body Dressing (QC): 4 Lower Body Dressing (QC): 4 On/Off Footwear (QC): 4 Additional Goals: 1-Demonstrate ADL Tasks, 2-Verbalize Understanding, 3- ImproveStrength/Stefania 1=Demonstrate adherence to instructed precautions during ADL tasks. 2=Patient will verbalize/demonstrate understanding of assistive devices/mo difications for ADL. 3=Patient will improve strength/tolerance for activity to enable patient to perform ADL's. OT Education/Plan Problem List/Assessment Assessment: Decreased Activ Tolerance, Decreased Safety Aware, Impaired Funct Balance Discharge Recommendations Plan/Recommendations: Continue POC Treatment Plan/Plan of Care Patient would benefit from OT for education, treatment and training to promote independence in ADL's, mobility, safety and/or upper extremity function for ADL's. Plan of Care: ADL Retraining, Functional Mobility, Group Exercise/Act as Ind, UE Funct Exercise/Act Treatment Duration: May 28, 2023 Frequency: At least 5 of 7 days/Wk (IRF) Estimated Hrs Per Day: Other (75 mins per day) Agreement: Yes Rehab Potential: Good Time Start Time: 12:50 Stop Time: 13:00 DATE: May 12, 2023 Total Time Billed (hr/min): 10 Billed Treatment Time 1 visit-ADL 1 (10 min) co-treat 10 min CHANDLER DENTON May 12, 2023 13:14
--- NOTE | 2023-05-12 15:00 | Physical Therapy Daily Note ---
PT Daily Note-Current Subjective Pt sitting in Therapy Gym w/PT & OT as BRAID MAKER & ELIZABETH arrive. Pt agrees to BRAID MAKER/ELIZABETH co-treat. Co-treat with PT([id number]), skills of 2 clinicians required to decrease fall risk and monitor pt's reaching/grasping items throughout ambulation. PT focusing on ambulation and OT focusing on functional tasks and decreasing sensory needs for oral fixation during ambulation. Pain Section J - Health Conditions 1. Rarely or not at all 2. Occasionally 3. Frequently 4. Almost constantly 8. Unable to answer Pain Effect on Sleep: 2 Pain Interference with Therapy: 2 Pain Interference w/Day-to-Day: 2 Mental Status Patient Orientation: Person, MR, [place] Transfers SCALE: Activities may be completed with or without assistive devices. 9-Yrgfqpfqdf-wjmhgjo completes the activity by him/herself with no assistance from a helper. 5-Set-up or Clean-up Assistance-helper sets up or cleans up; patient completes activity. [place] assists only prior to or following the activity. 4-Supervision or Touching Assistance-helper provides verbal cues and/or touching/steadying and/or contact guard assistance as patient completes activity. Assistance may be provided throughout the activity or intermittently. 3-Partial/Moderate Assistance-helper does LESS THAN HALF the effort. [place] lifts, holds or supports trunk or limbs, but provides less than half the effort. 2-Substantial/Maximal Assistance-helper does MORE THAN HALF the effort. [place] lifts or holds trunk or limbs and provides more than half the effort. 1-Ojamyycxy-eawpzq does ALL the effort. Patient does none of the effort to complete the activity. Or, the assistance of 2 or more helpers is required for the patient to complete the activity. If activity was not attempted, code reason: 7-Patient Refused. 9-Not Applicable-not attempted and the patient did not perform the activity before the current illness, exacerbation or injury. 10-Not Attempted due to Environmental Limitations-(lack of equipment, weather restraints, etc.). 88-Not Attempted due to Medical Conditions or Safety Concerns. Weight Bearing Right Lower Extremity: Right Full Weight Bearing Left Lower Extremity: Left Full Weight Bearing Treatments Pt ambulates with SBA/CGA without AD. Monitoring closely due to pt reaching and taking cups with straws and attempting to drink. After therapy, CLIENT PROGRAM MANAGER took over care for swallow evaluation. All needs met. Assessment Current Status: Fair Progress Due to baseline, pt will be very distracted at times and needs VC to stay on task. PT Employment Clerk Goals Fdc Goals PT Employment Clerk Goals Time Frame: May 26, 2023 Roll Left & Right (QC): 6 (Pt will be Mod I with bed mobility tasks and functional transfers. ) Sit to Lying (QC): 6 (Pt will be Mod I with bed mobility tasks and functional transfers. ) Lying-Sitting on Side/Bed(QC): 6 (Pt will be Mod I with bed mobility tasks and functional transfers. ) Sit to Stand (QC): 6 (Pt will be Mod I with bed mobility tasks and functional transfers. ) Chair/Lit-je-Glyev Xfer(QC): 6 (Pt will be Mod I with bed mobility tasks and functional transfers. ) Toilet Transfer (QC): 6 (Pt will be Mod I with bed mobility tasks and functional transfers. ) Car Transfer (QC): 6 (Pt will be Mod I with bed mobility tasks and functional transfers. ) Does the Patient Walk: Yes Walk 10 feet (QC): 4 (Pt will be SBA/CGA for walking. ) Walk 50ft with 2 Turns (QC): 4 (Pt will be SBA/CGA for walking. ) Walk 150 ft (QC): 4 (Pt will be SBA/CGA for walking. ) Walking 10ft on Uneven Surface: 4 (Pt will be SBA/CGA for walking. ) 1 Step (curb) (QC): 4 (Pt will be SBA/CGA for steps ) 4 Steps (QC): 4 (Pt will be SBA/CGA for steps ) 12 Steps (QC): 4 (Pt will be SBA/CGA for steps ) Picking up an Object (QC): 4 (Pt will be SBA/CGA for picking up an object ) Does the Pt use WC or Scooter?: No Wheel 50 feet with 2 turns (QC: 9 Type: N/A Wheel 150 feet: 9 Type: N/A PT Plan Problem List Problem List: Safety Treatment/Plan Treatment Plan: Continue Plan of Care Treatment Plan: Bed Mobility, Education, Functional Activity Stefania, Functional Strength, Group Therapy, Gait, Safety, Therapeutic Exercise, Transfers Treatment Duration: May 26, 2023 Frequency: At least 5 of 7 days/Wk (IRF) Estimated Hrs Per Day: Other (75 min/day ) Patient and/or Family Agrees t: Yes Time Time In: 1250 Time Out: 1300 DATE: May 12, 2023 Total Billed Treatment Time: 10 Total Billed Treatment 1, FA (10m) FAROOQ BECERRA PTA May 12, 2023 15:00
[2023-05-12] MEDS ORDERED: PEG 3350/ELECTROLYTE POWDER 4000 ML BTL PO SCH (15:15)
[2023-05-12] MEDS ORDERED: BENZONATATE 100 MG CAPSULE PO PRN (15:15)
[2023-05-12] MEDS ORDERED: ACETAMINOPHEN 500 MG TABLET PO PRN (15:15)
[2023-05-12] MEDS ORDERED: LOPERAMIDE 2 MG CAPSULE PO PRN (15:15)
[2023-05-12] MEDS ORDERED: MEDROXYPROGESTERONE ACETATE 150 MG IM SCH (15:15)
[2023-05-12] MEDS ORDERED: CLINDAMYCIN PHOS TOP PRN (15:15)
--- NOTE | 2023-05-12 15:56 | Occupational Ther Daily Note ---
OT Current Status-Daily Note Subjective Pt alert, took over care from JAVA SOFTWARE ENGINEER. Pt agrees to therapy. Pt does have echolalia, repeats what speaker has just stated. Pt is able to make yes/no to task known by either turning away or resisting to complete. Pt is pleasant and does cooperate. At times pt will need hand over hand assistance with new situat ions, ie using different daily equipment like faucet with levers and different shower set up. Pt given oral fidget for walking to keep hands busy so as to not be reaching for random items on counters or attempting to drink from others drinks. Fidget is for walking only, is not for when sitting or laying for safety. Mental Status/Objective Patient Orientation: Person, ADL-Treatment Pt declines shower, stated that she had shower earlier today. Pt does complete toileting by self though does not cleanse self thoroughly. Hand over hand to wash hands due to different devices used. Pt required verbal/physical cues to thoroughly wash soap from hands. Pt is able to follow 1 step directions during session. Therapy Code Descriptions/Definitions Functional [place] Measure: 0=Not Assessed/NA 4=Minimal Assistance 1=Total Assistance 5=Supervision or Setup 2=Maximal Assistance 6=Modified [place] 3=Moderate Assistance 7=Complete IndependenceSCALE: Activities may be completed with or without assistive devices. 3-Cwuvyggewo-ashvfdz completes the activity by him/herself with no assistance from a helper. 5-Set-up or Clean-up Assistance-helper sets up or cleans up; patient completes activity. [place] assists only prior to or following the activity. 4-Supervision or Touching Assistance-helper provides verbal cues and/or touching/steadying and/or contact guard assistance as patient completes activity. Assistance may be provided throughout the activity or intermittently. 3-Partial/Moderate Assistance-helper does LESS THAN HALF the effort. [place] lifts, holds or supports trunk or limbs, but provides less than half the effort. 2-Substantial/Maximal Assistance-helper does MORE THAN HALF the effort. [place] lifts or holds trunk or limbs and provides more than half the effort. 4-Biumbzoym-ifjcuc does ALL the effort. Patient does none of the effort to complete the activity. Or, the assistance of 2 or more helpers is required for the patient to complete the activity. If activity was not attempted, code reason: 7-Patient Refused. 9-Not Applicable-not attempted and the patient did not perform the activity bef ore the current illness, exacerbation or injury. 10-Not Attempted due to Environmental Limitations-(lack of equipment, weather r estraints, etc.). 88-Not Attempted due to Medical Conditions or Safety Concerns. Other Treatment Pt was able to place 5 shapes out of 15 by self then was able to manipulate small objects into places after gestural cues of where to place. Pt given green therapy sponge for fidget in room, able to hold and use appropriately (did not mouth). Pt able to hold onto tube and place 1' marbles into it with verbal and gestural cues though cues to utilize B UE to hold tube with one hand and place marbles with other. After therapy, pt sitting in recliner with call light/phone in reach. All needs met in room. Safety measures in place. OT Nursing Home Goals Nursing Home Goals Time Frame: May 28, 2023 Acute change in mental status: 1 Inattention: 1 Disorganized thinkin Altered level of consciousness: 0 Eating (QC): 6 Oral Hygiene (QC): 4 Toileting Hygiene (QC): 4 Shower/Bathe Self (QC): 4 Upper Body Dressing (QC): 4 Lower Body Dressing (QC): 4 On/Off Footwear (QC): 4 Additional Goals: 1-Demonstrate ADL Tasks, 2-Verbalize Understanding, 3- ImproveStrength/Stefania 1=Demonstrate adherence to instructed precautions during ADL tasks. 2=Patient will verbalize/demonstrate understanding of assistive devices/m odifications for ADL. 3=Patient will improve strength/tolerance for activity to enable patient to perform ADL's. OT Education/Plan Problem List/Assessment Assessment: Impaired Cognition, Impaired Funct Balance, Impaired I ADL's, Impaired Self-Care Skills Discharge Recommendations Plan/Recommendations: Continue POC Treatment Plan/Plan of Care Patient would benefit from OT for education, treatment and training to promote independence in ADL's, mobility, safety and/or upper extremity function for ADL's. Plan of Care: ADL Retraining, Functional Mobility, Group Exercise/Act as Ind, UE Funct Exercise/Act Treatment Duration: May 28, 2023 Frequency: At least 5 of 7 days/Wk (IRF) Estimated Hrs Per Day: Other (75 mins per day) Agreement: Yes Rehab Potential: Good Time Start Time: 13:25 Stop Time: 14:30 DATE: May 12, 2023 Total Time Billed (hr/min): 65 Billed Treatment Time 1 visit-ADL 1 (15 min) FA 3 (50 min) CHANDLER DENTON May 12, 2023 15:56
[2023-05-12] MEDS ORDERED: PEG 3350/ELECTROLYTE POWDER 4000 ML BTL PO PRN (16:30)
[2023-05-12 16:34] LABS: BASOPHILS # (AUTO) 0.1 10^3/uL (0.0-0.1); BASOPHILS % (AUTO) 1 % (0-10); EOSINOPHILS # (AUTO) 0.1 10^3/uL (0.0-0.3); EOSINOPHILS % (AUTO) 1 % (0-10); HEMATOCRIT 35 % (35-52); HEMOGLOBIN 11.5 g/dL (11.5-16.0); LYMPHOCYTES # (AUTO) 1.5 10^3/uL (1.0-4.0); LYMPHOCYTES % (AUTO) 23 % (12-44); MEAN CORPUSCULAR HEMOGLOBIN 33 pg (25-34); MEAN CORPUSCULAR HGB CONC 33 g/dL (32-36); MEAN CORPUSCULAR VOLUME 99 fL (80-99); MEAN PLATELET VOLUME 9.2 fL (9.0-12.2); MONOCYTES # (AUTO) 0.7 10^3/uL (0.0-1.0); MONOCYTES % (AUTO) 10 % (0-12); NEUTROPHILS # (AUTO) 4.2 10^3/uL (1.8-7.8); NEUTROPHILS % (AUTO) 64 % (42-75); PLATELET COUNT 230 10^3/uL (130-400); WHITE BLOOD COUNT 6.6 10^3/uL (4.3-11.0)
--- NOTE | 2023-05-12 16:35 | ST Dysphagia Evaluation ---
Speech Evaluation-General Medical Diagnosis SDH Onset Date: May 05, 2023 Therapy Diagnosis Therapy Diagnosis: Dysphagia Precautions Precautions: Fall Precautions/Isolations: Standard Precautions Referral Referring Physician: Dr. Byrne Reason for Referral: Evaluation/Treatment Medical History Pertinent Medical History: Parkinson's Developmental delay, intellectual disability, seizure disorder Current History S/p fall resulting in SDH x2 Reviewed History: Yes Social History Home: [facility] Current Living Status: Speech PLF/Current-Dysphagia Prior Level of Function Independent with ADL's Subjective The pt maintained head down posture for majority of session. She was awake and was able to intermittently follow directions, provided intermittent verbal res ponses. Echolalia was predominant verbal response. Cognitive Status Patient Orientation: Unable to Assess Oral Motor Skills Dentition: Natural Current Food Consistancy: Regular Ability to Follow Directions: Fair Oral Expression Ability: Severe Impairment Voice Voice Phonatory-Based Quality: Weak Voice Loudness: Moderately Soft/Quiet Face Facial Symmetry: Symmetrical Oral-Facial Assessment Oral-Facial Dentition: Teeth (missing teeth) Did not follow commands or imitate oral movement Dysphagia Evaluation Consistencies Presented: Regular, Thin Liquid Oral Phase: Oral Residue Rapid eating rate with overfilling of mouth, with bilateral pocketing of food.The pt was responsive to directions to pause eating rate to chew and swallow only when food plate was covered with lid. She demonstrated adequate mastication with missing teeth. Pharyngeal swallow appeared to be WFL for solids and liquids Dietary Recommendations: Regular Liquid Recommendations: Thin Swallowing Precautions: Decreased Rate of Oral Intake, Liquids from Straw, Oral Supervision Staff, Oral Supervision LIQUOR RECTIFIER The pt will require supervision for meals due to uncontrolled rate of eating and overfilling of mouth Dysphagia Evaluation Summary Impulsive eating rate, overfilling of mouth. Pharyngeal phase appears safe and functional. Barriers to Learning Impaired cognitive function Speech Usp Goals Logistics Research Engineer Goals 1. The pt will tolerate regular diet with slowed rate of eating with occasional reminders. 2. The pt will provide clear y/n response to personal care questions. 3. The pt will increase appropriate verbalizations during tasks. Speech-Plan Treatment Plan Speech Therapy Treatment Plan: Continue Plan of Care Frequency: At least 5 of 7 days/Wk (IRF) Estimated Hrs Per Day: Other (45 min/day) Rehab Potential: Good Barriers to Learning: Impaired cognition Discharge Recommendations Other, See Comments ([facility]) Time Speech Therapy Time In: 13:00 Speech Therapy Time Out: 13:25 DATE: May 12, 2023 Total Billed Time: 25 Billed Treatment Time 1 DYSEVS (25) EREN WOMACK May 12, 2023 16:35
[2023-05-12] MEDS ORDERED: FLU QUADRIvalent (6 months+) 60 mcg/0.5 ml 2023-2024 (FLUARIX) IM ONE (17:15)
[2023-05-12 20:00] VITALS: BP 114/68
[2023-05-12] MEDS ORDERED: CLOZAPINE 200 MG PO SCH (21:00)
[2023-05-12] MEDS: DOCUSATE SODIUM 100 MG CAPSULE PO SCH (22:00)
[2023-05-12] MEDS: cloNIDine 0.1 MG TABLET PO SCH (22:04)
[2023-05-12] MEDS: meTOprolol TARTRATE (IR) 50 MG TABLET PO SCH (22:04)
[2023-05-12] MEDS: SENNA W/DOCUSATE TABLET PO SCH (22:04)
[2023-05-12] MEDS: toPIRamate 100 MG (TOPAMAX) TAB PO SCH (22:05)
[2023-05-12] MEDS: COLESTIPOL 1 GM TABLET PO SCH (22:05)
[2023-05-12] MEDS: cloZAPine 100 MG TABLET PO SCH (22:05)
[2023-05-12] MEDS: lamoTRIgine 25 MG TABLET PO SCH (22:05)
[2023-05-13 05:54] LABS: BASOPHILS % (AUTO) 1 % (0-10); EOSINOPHILS # (AUTO) 0.1 10^3/uL (0.0-0.3); EOSINOPHILS % (AUTO) 2 % (0-10); HEMATOCRIT 35 % (35-52); HEMOGLOBIN 11.6 g/dL (11.5-16.0); LYMPHOCYTES # (AUTO) 2.1 10^3/uL (1.0-4.0); LYMPHOCYTES % (AUTO) 32 % (12-44); MEAN CORPUSCULAR HEMOGLOBIN 33 pg (25-34); MEAN CORPUSCULAR HGB CONC 33 g/dL (32-36); MEAN CORPUSCULAR VOLUME 99 fL (80-99); MEAN PLATELET VOLUME 9.3 fL (9.0-12.2); MONOCYTES # (AUTO) 0.6 10^3/uL (0.0-1.0); MONOCYTES % (AUTO) 10 % (0-12); NEUTROPHILS # (AUTO) 3.4 10^3/uL (1.8-7.8); NEUTROPHILS % (AUTO) 53 % (42-75); PLATELET COUNT 261 10^3/uL (130-400); WHITE BLOOD COUNT 6.4 10^3/uL (4.3-11.0)
[2023-05-13] MEDS: CALCIUM CARBONATE 600 MG +VITAMIN D TABLET PO SCH (06:10)
[2023-05-13] MEDS: THERAPEUTIC MULTIVITAMIN W/MINERALS TABLET PO SCH (06:10)
[2023-05-13 06:11] LABS: ALBUMIN 2.9 GM/DL (3.2-4.5); POTASSIUM 3.4 MMOL/L (3.6-5.0)
[2023-05-13 06:12] LABS: CALCIUM 8.2 MG/DL (8.5-10.1)
[2023-05-13 06:14] LABS: TOTAL PROTEIN 5.5 GM/DL (6.4-8.2)
[2023-05-13 06:15] LABS: BILIRUBIN,TOTAL 0.2 MG/DL (0.1-1.0)
[2023-05-13 06:17] LABS: CREATININE SERUM 1.08 MG/DL (0.60-1.30)
[2023-05-13 08:00] VITALS: BP 96/57
[2023-05-13] MEDS: SENNA W/DOCUSATE TABLET PO SCH ×2 (08:16→21:39)
[2023-05-13] MEDS: toPIRamate 100 MG (TOPAMAX) TAB PO SCH ×2 (08:17→21:39)
[2023-05-13] MEDS: lamoTRIgine 25 MG TABLET PO SCH ×2 (08:17→21:39)
[2023-05-13] MEDS: LACTOBACILLUS ACIDOPHILUS (PROBIOTIC) CAPSULE PO SCH (08:17)
[2023-05-13] MEDS: meTOprolol TARTRATE (IR) 50 MG TABLET PO SCH ×2 (08:17→21:40)
[2023-05-13] MEDS: CITALOPRAM 20 MG TABLET PO SCH (08:17)
[2023-05-13] MEDS: cloNIDine 0.1 MG TABLET PO SCH ×2 (08:17→21:40)
[2023-05-13] MEDS: DOCUSATE SODIUM 100 MG CAPSULE PO SCH ×2 (08:18→21:40)
[2023-05-13] MEDS: cloZAPine 100 MG TABLET PO SCH ×2 (08:20→21:39)
[2023-05-13] MEDS: COLESTIPOL 1 GM TABLET PO SCH ×2 (08:21→09:00)
[2023-05-13 09:00] VITALS: BP 118/69
[2023-05-13] MEDS ORDERED: NON-FORMULARY MEDICATION 1 EA EA (Lactobacillus Rhamnosus GG (Culturelle) 1 EACH) PO SCH (09:00)
[2023-05-13] MEDS ORDERED: NON-FORMULARY MEDICATION 1 EA EA (Multivitamin (Daily Vite) 1 EACH) PO SCH (09:00)
[2023-05-13] MEDS ORDERED: [UNRECOGNIZED DRUG - OTHER] PO SCH (09:00)
[2023-05-13] MEDS ORDERED: VITAMIN D3 PO SCH (09:00)
[2023-05-13] MEDS ORDERED: NON-FORMULARY MEDICATION 1 EA EA (Escitalopram Oxalate 10 MG) PO SCH (09:00)
[2023-05-13] MEDS ORDERED: CALCIUM CARBONATE PO SCH (09:00)
[2023-05-13 10:15] VITALS: BP 96/57
--- NOTE | 2023-05-13 11:19 | Speech Therapy Daily Note ---
Speech Daily Progress Note Subjective Date Seen by Provider: May 13, 2023 Time Seen by Provider: 08:00 The pt was seen for treatment with breakfast meal. She was awake and alert throughout session. Objective The pt demonstrated increased verbalizations throughout session. She was able to label food items and utensils on 7/10 trials. The pt was able to state function for items on 1/4 trials. She made requests for more of specific items appropriately. Engagement with others in the room occurred x1, with cues the pt made eye contact and thanked advanced nursing professor for bringing her milk. Yes/no response was at 60% accuracy for intelligible and differentiated response. Echolalic speech was decreased through initial portion of session, and increased as the pt became tired. Swallow: The pt was responsive to verbal cues to pause eating and clear mouth of solid bolus on 9/10 trials. Physical covering/removing of food was not needed. 2 solid pills were attempted individually with pudding bolus. The pt repeatedly moved the snigle pill into her cheek while swallowing the pudding on 6/6 attempts. She was able to expectorate pill to command. Night nursing staff had reported that the pt took pills last evening without difficulty. After observing the pt's pattern for pill swallowing, the tablets from the previous evening were located on the pt's floor. Crushed meds with pudding were taken without difficulty. Recommend crushed meds at this time due to pocketing of whole pills. Assessment Assessment Current Status: Good Progress Treatment Plan Continue Plan of Care Speech Canvas Goods Supervisor Goals Penitentiary Goals 1. The pt will tolerate regular diet with slowed rate of eating with occasional reminders. 2. The pt will provide clear y/n response to personal care questions. 3. The pt will increase appropriate verbalizations during tasks. Speech-Plan Treatment Plan Speech Therapy Treatment Plan: Continue Plan of Care Frequency: At least 5 of 7 days/Wk (IRF) Estimated Hrs Per Day: Other (45 min/day) Rehab Potential: Good Barriers to Learning: Cognitive deficit, impulsivity Time Speech Therapy Time In: 08:00 Speech Therapy Time Out: 08:45 DATE: May 13, 2023 Total Billed Time: 45 Billed Treatment Time 1 DYST (25 min) 1 SLTS (20 min) EREN WOMACK May 13, 2023 11:19
--- NOTE | 2023-05-13 11:59 | Occupational Ther Daily Note ---
OT Current Status-Daily Note Subjective Pt alert, sitting in recliner. Pt agrees to therapy. Pt will answer questions when she wants to, but does makes wants/needs known. No c/o pain. Mental Status/Objective Patient Orientation: Person, ADL-Treatment Pt declines shower, stating that it scares her. Discussed with PD and CC, SW to call pt's shelter for more information on pt's functional abilities. SBA for safety during toileting, pt does wipe after voiding though very lightly. Standing at sink to complete oral care after set up with SBA to monitor thoroughness of task. Set up for UBD and footwear. Pt able to thread feet into pants then verbal cues to stand and hike pants over hips. Therapy Code Descriptions/Definitions Functional [place] Measure: 0=Not Assessed/NA 4=Minimal Assistance 1=Total Assistance 5=Supervision or Setup 2=Maximal Assistance 6=Modified [place] 3=Moderate Assistance 7=Complete IndependenceSCALE: Activities may be completed with or without assistive devices. 1-Ypcyssowrh-ummkrwc completes the activity by him/herself with no assistance from a helper. 5-Set-up or Clean-up Assistance-helper sets up or cleans up; patient completes activity. [place] assists only prior to or following the activity. 4-Supervision or Touching Assistance-helper provides verbal cues and/or touching/steadying and/or contact guard assistance as patient completes activity. Assistance may be provided throughout the activity or intermittently. 3-Partial/Moderate Assistance-helper does LESS THAN HALF the effort. [place] lifts, holds or supports trunk or limbs, but provides less than half the effort. 2-Substantial/Maximal Assistance-helper does MORE THAN HALF the effort. [place] lifts or holds trunk or limbs and provides more than half the effort. 2-Ofbskrxam-ukbacw does ALL the effort. Patient does none of the effort to complete the activity. Or, the assistance of 2 or more helpers is required for the patient to complete the activity. If activity was not attempted, code reason: 7-Patient Refused. 9-Not Applicable-not attempted and the patient did not perform the activity before the current illness, exacerbation or injury. 10-Not Attempted due to Environmental Limitations-(lack of equipment, weather restraints, etc.). 88-Not Attempted due to Medical Conditions or Safety Concerns. Oral Hygiene (QC): 4 Shower/Bathe Self (QC): 7 Upper Body Dressing (QC): 5 Lower Body Dressing (QC): 4 On/Off Footwear: 5 Toileting Hygiene (QC): 4 Toilet Transfer (QC): 4 Other Treatment Pt ambulated to gym with 1 LOB and assist needed to steady. Pt completed 2: 4 piece inset puzzles-first time individually and 2nd time pt had to sort pieces to place on correct board verbal cues needed to look for 2nd board. Minimal verbal cues for 9 piece interlocking puzzle, more cues needed if puzzle was place haphazardly around puzzle board. Pt able to name colors of crayons used, use a loose tripod grasp to write first name multiple times then last name with model. Pt has light pressure with crayon when using. After session, pt sitting in recliner with call light/phone in reach. All needs met in room. OT Snf Goals Snf Goals Time Frame: May 28, 2023 Acute change in mental status: 1 Inattention: 1 Disorganized thinkin Altered level of consciousness: 0 Eating (QC): 6 Oral Hygiene (QC): 4 Toileting Hygiene (QC): 4 Shower/Bathe Self (QC): 4 Upper Body Dressing (QC): 4 Lower Body Dressing (QC): 4 On/Off Footwear (QC): 4 Additional Goals: 1-Demonstrate ADL Tasks, 2-Verbalize Understanding, 3- ImproveStrength/Stefania 1=Demonstrate adherence to instructed precautions during ADL tasks. 2=Patient will verbalize/demonstrate understanding of assistive devices/modifications for ADL. 3=Patient will improve strength/tolerance for activity to enable patient to perform ADL's. OT Education/Plan Problem List/Assessment Assessment: Decreased Activ Tolerance, Impaired Cognition, Impaired Funct Balance, Impaired Self-Care Skills Discharge Recommendations Plan/Recommendations: Continue POC Treatment Plan/Plan of Care Patient would benefit from OT for education, treatment and training to promote independence in ADL's, mobility, safety and/or upper extremity function for ADL's. Plan of Care: ADL Retraining, Functional Mobility, Group Exercise/Act as Ind, UE Funct Exercise/Act Treatment Duration: May 28, 2023 Frequency: At least 5 of 7 days/Wk (IRF) Estimated Hrs Per Day: Other (75 mins per day) Agreement: Yes Rehab Potential: Good Time Start Time: 09:00 Stop Time: 10:15 DATE: May 13, 2023 Total Time Billed (hr/min): 75 Billed Treatment Time 1 visit-ADL 2 (35 min) FA 3 (40 min) CHANDLER DENTON May 13, 2023 11:59
--- NOTE | 2023-05-13 12:31 | Individualized Plan of Care ---
Individualized Plan of Care Rehab Nursing IPOC Order Admission Date May 12, 2023 at 12:00 Current Orders Orders Admission Order(Inpt,Obs,Sdc) (05/12/23:32) Vital Signs: Per Unit Policy ( 08,16,00 (05/12/23:32) Bebeto Meléndez 09,21 (05/12/23:32) Sequential Compression Device [id number] (05/12/23:) Surgical Instrument Maker-Inpt Rehab Con (05/12/23:) Rehab Nursing Orders-Ipoc (05/12/23:32) Physical Therapy Rehab Orders (05/12/23:) Occupational Therapy Rehab Ord (05/12/23:) Speech Therapy Rehab Orders (05/12/23) Cbc And Automated Diff (05/13/23 06:00) Comprehensive Metabolic Panel (05/13/23 06:00) Precautions (Aru) (05/12/23:) Weekly Weight WEEK (05/12/23:) Rehab-Intensity Of Therapy (05/12/23:32) Initiate Admission Nursing Pro .admission (05/12/23:32) Alprazolam Tablet (Alprazolam Tablet) (05/12/23 11:45) Calcium Carbonate Chew Tablet (Calcium C (05/12/23 11:45) Diphenhydramine Tablet (Diphenhydramine (05/12/23 11:45) Docusate Sodium Capsule (Docusate Sodium (05/12/23 21:00) Docusate Sodium Capsule (Docusate Sodium (05/12/23 11:45) Bisacodyl Suppository (Bisacodyl Supposi (05/12/23 11:45) Lactulose Oral Solution (Enulose Oral So (05/12/23 11:45) Na Phos/Na Biphos Adult Enema (Na Phos/N (05/12/23 11:45) Guaifenesin/Codeine Syrup (Guaifenesin/C (05/12/23 11:45) Loperamide Capsule (Loperamide Capsule) (05/12/23 11:45) Melatonin Tablet (Melatonin Tablet) (05/12/23 11:45) Polyethylene Glycol Powder (Polyethylen (05/12/23 21:00) Ondansetron Oral Dissolve Tab (Ondanset (05/12/23 11:45) Senna W/Docusate Tablet (Senna W/Docusat (05/12/23 21:00) Acetaminophen Tablet (Acetaminophen Ta (05/12/23 11:45) Initiate Admission Nursing Pro .admission (05/12/23 11:32) Code/Resuscitation (05/12/23 11:32) Admission Arrival Bed Request (05/12/23 12:02) General/Regular (05/12/23 Lunch) Ensure Plus Vanilla (05/12/23 13:49) Patient Visit (05/12/23 ) Pt Eval Moderate Complexity (05/12/23 ) Gait Training, Ea 15 Min (05/12/23 ) Patient Visit (05/12/23 ) Functional Activities, Ea 15 (05/12/23 ) Acetaminophen Tablet (Acetaminophen Ta (05/12/23 15:15) Benzonatate Capsule (Benzonatate Capsule (05/12/23 15:15) Clonidine Tablet (Clonidine Tablet) (05/12/23 21:00) Colestipol Tablet (Colestipol Tablet) (05/12/23 21:00) Lamotrigine Tablet (Lamotrigine Tablet) (05/12/23 21:00) Loperamide Capsule (Loperamide Capsule) (05/12/23 15:15) Metoprolol Tartrate (Ir) Tab (Metoprolol (05/12/23 21:00) Peg 3350/Electrolyte Powder (Peg 3350/El (05/12/23 15:15) Topiramate Tablet (Topamax Tablet) (05/12/23 21:00) (Nf) Calcium Carbonate/Vitamin D3 (Os-Ca (05/13/23 09:00) (Nf) Clindamycin Phos (Clindamycin Phosp (05/12/23 15:15) (Nf) Clozapine (05/12/23 21:00) (Nf) Escitalopram Oxalate (05/13/23 09:00) (Nf) Lactobacillus Rhamnosus Gg (Culture (05/13/23 09:00) (Nf) Medroxyprogesterone Acetate (05/12/23 15:15) (Nf) Multivitamin (Daily Freddie) (05/13/23 09:00) Vte Contraindication (05/12/23 15:16) Multivitamin W/Mineral Tablet (Multivita (05/13/23 07:00) Citalopram Tablet (Citalopram Tablet) (05/13/23 09:00) Calcium Carbonate + Vitamin D3 (Calcium (05/13/23 07:00) Lactobacillus Acidophilus Cap (Acidophil (05/13/23 09:00) Methimazole Tablet (Methimazole Tablet) (05/13/23 09:00) Cbc And Automated Diff (05/12/23 16:13) Peg 3350/Electrolyte Powder (Peg 3350/El (05/12/23 16:30) Clozapine Tablet (Clozapine Tablet) (05/12/23 21:00) Flu Quad (6 Months+)8585-0475 (Flu David (05/12/23 17:15) Telesitter Service Order & Ass Q4HR (05/13/23 07:59) Patient Visit (05/12/23 ) Treat. Speech/Lang/Voice (05/12/23 ) Patient Visit (05/12/23 ) Dysphagia Evaluation Std (05/12/23 ) Patient Visit (05/13/23 ) Gait Training, Ea 15 Min (05/13/23 ) Functional Activities, Ea 15 (05/13/23 ) Patient Visit (05/13/23 ) Functional Activities, Ea 15 (05/13/23 ) Patient Visit (05/13/23 ) Treat. Speech/Lang/Voice (05/13/23 ) Dysphagia Therapy (05/13/23 ) Rehab Nursing Orders: Ongoing Assess. of Cognitive Status, Ongoing Assess. of Function Status, Bladder Management, Bladder Scan, Bladder Training, Bowel Management, Bowel Training, Disease Management & Educaiton, DVT Prophylaxis, Fall Prevention, Fluid/Electrolyte/Nutrition Mgmt, Infection Prevention, Medication Management & Education, Management of Risks & Complications, Management of Skin Intergrity, Nutrition Management, Pain Management, Patient/Family Support, Safety Management, Swallow Precautions Intensity of Therapy to be met Patient to be seen: Min.3h per day/5 of 7d PT IPOC Problem List: Safety Treatment Plan: Continue Plan of Care Bed Mobility, Education, Functional Activity Stefania, Functional Strength, Group Therapy, Gait, Safety, Therapeutic Exercise, Transfers Treatment Duration: May 26, 2023 Frequency: At least 5 of 7 days/Wk (IRF) Estimated Hrs Per Day: Other (75 min/day ) OT IPOC Problems: Decreased Activ Tolerance, Impaired Cognition, Impaired Funct Balance, Impaired Self-Care Skills OT Treatment, Training and Edu: Yes Plan of Care: ADL Retraining, Functional Mobility, Group Exercise/Act as Ind, UE Funct Exercise/Act Treatment Duration: May 28, 2023 Frequency: At least 5 of 7 days/Wk (IRF) Estimated Hrs Per Day: Other (75 mins per day) ST IPOC Speech Therapy Treatment Plan: Continue Plan of Care Treatment Duration: May 13, 2023 Frequency: At least 5 of 7 days/Wk (IRF) Estimated Hrs Per Day: Other (45 min/day) Surgical Instrument Maker/Case Mgmt Surgical Instrument Maker/Case Managemen: Discharge Planning Dietitian/Spooler Rubber Strand Dietitian/Spooler Rubber Strand to monitor nutritional status and make changes and/or recommendations as needed and work with speech pathology on dietary upgrades as the occur. Physician IPOC Medical Issues being managed closely and that require the 24 hour availability of a physician: Recent fall with subdural hematomas with baseline intellectual delay and cognitive difficulty will be at high risk for falls and decompensation if not monitored closely Medical Issues: Bowel/Bladder Function, DVT Prophylaxis, Falls Precautions, Fluid/Electrolyte/Nutrition Balance, Infection Protection, Pain Management Brief Synthesis of Preadmission Screen, Post-Admission Evaluation, and Therapy Evaluations: PT and OT and speech therapy will focus on regaining as much independence and stamina with ambulation and cognition and try to prevent falls while staying at inpatient rehab Medical Prognosis: Good Anticipated Length of Stay: 7 days ERNST PAYTON DO May 13, 2023 12:31
--- NOTE | 2023-05-13 12:32 | PM&R Progress Note ---
Subjective HPI/CC On Admission Date Seen by Provider: May 13, 2023 Time Seen by Provider: 12:30 Subjective/Events-last exam 05/13/2023: Patient doing a lot better Seems to be more interactive No falls No pain We will monitor bowel function Review of Systems General: Fatigue, Malaise Objective Exam Vital Signs Vital Signs Date Time Temp Pulse Resp B/P (MAP) Pulse Ox O2 Delivery O2 Flow Rate FiO2 05/13/23 22:36 37.2 108 24 114/66 (82) 97 Room Air Capillary Refill : General Appearance: WD/WN, Anxious, Chronically ill, Thin HEENT: PERRL/EOMI, Normal ENT Inspection, Pharynx Normal Neck: Full Range of Motion, Normal Inspection, Non Tender, Supple, Carotid Bruit Respiratory: Chest Non Tender, Lungs Clear, Normal Breath Sounds, No Accessory Muscle Use, No Respiratory Distress Cardiovascular: Regular Rate, Rhythm, No Edema, No Gallop, No JVD, No Murmur, Normal Peripheral Pulses Gastrointestinal: Normal Bowel Sounds, No Organomegaly, No Pulsatile Mass, Non Tender, Soft Back: Normal Inspection, No CVA Tenderness, No Vertebral Tenderness Extremity: Normal Capillary Refill, Normal Inspection, Normal Range of Motion, Non Tender, No Calf Tenderness, No Pedal Edema Neurologic/Psychiatric: Alert, corporate 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 FIM Transfers Therapy Code Descriptions/Definitions Functional [place] Measure: 0=Not Assessed/NA 4=Minimal Assistance 1=Total Assistance 5=Supervision or Setup 2=Maximal Assistance 6=Modified [place] 3=Moderate Assistance 7=Complete IndependenceSCALE: Activities may be completed with or without assistive devices. 7-Hwkosneiov-itfvanj completes the activity by him/herself with no assistance from a helper. 5-Set-up or Clean-up Assistance-helper sets up or cleans up; patient completes activity. [place] assists only prior to or following the activity. 4-Supervision or Touching Assistance-helper provides verbal cues and/or touching/steadying and/or contact guard assistance as patient completes activity. Assistance may be provided throughout the activity or intermittently. 3-Partial/Moderate Assistance-helper does LESS THAN HALF the effort. [place] lifts, holds or supports trunk or limbs, but provides less than half the effort. 2-Substantial/Maximal Assistance-helper does MORE THAN HALF the effort. [place] lifts or holds trunk or limbs and provides more than half the effort. 2-Sudwnzpml-tkafxl does ALL the effort. Patient does none of the effort to complete the activity. Or, the assistance of 2 or more helpers is required for the patient to complete the activity. If activity was not attempted, code reason: 7-Patient Refused. 9-Not Applicable-not attempted and the patient did not perform the activity before the current illness, exacerbation or injury. 10-Not Attempted due to Environmental Limitations-(lack of equipment, weather restraints, etc.). 88-Not Attempted due to Medical Conditions or Safety Concerns. Roll Left to Right (QC): 4 (SBA ) Sit to Lying (QC): 4 (SBA ) Sit to Stand (QC): 4 (CGA ) Chair/Ich-kt-Aafzj Xfer(QC): 4 (CGA ) Car Transfer (QC): 4 (CGA ) Gait Training Does the Patient Walk?: Yes Walk 10 feet (QC): 3 (Min A for balance ) Walk 50 ft with 2 Turns(QC): 3 (Min A for balance ) Walk 150 ft (QC): 3 (Min A for balance ) Walking 10ft/uneven surface-QC: 3 (Min A for balance ) Gait Assistive Device: None Wheelchair Training Does the Pt Use a Wheelchair?: No Wheel 50 ft with 2 turns (QC): 9 Wheel 150 ft (QC): 9 Type of Wheelchair: N/A Stair Training #of Steps: 12 1 Step (curb) (QC): 3 (Min A for balance ) 4 Steps (QC): 3 (Min A for balance ) 12 Steps (QC): 3 (Min A for balance ) Balance Picking up an Object (QC): 3 (Min A for balance ) ADL-Treatment Eating (QC): 5 Oral Hygiene (QC): 4 Shower/Bathe Self (QC): 7 Upper Body Dressing (QC): 5 Lower Body Dressing (QC): 4 On/Off Footwear (QC): 5 Toileting Hygiene (QC): 4 Toilet Transfer (QC): 4 Assessment/Plan Assessment and Plan Assess & Plan/Chief Complaint Assessment: Fall with subdural hematomas Seizure disorder Intellectual delay Tachycardia Anxiety Malnutrition Plan: Home meds Supportive care Check labs in morning PT and OT 05/13/2023: Supportive care Monitor closely (1) Subdural hematoma ERNST PAYTON DO May 13, 2023 12:32
--- NOTE | 2023-05-13 14:46 | Physical Therapy Daily Note ---
PT Daily Note-Current Subjective Pt sitting in recliner in room w/chair alarm on upon arrival. Pt agrees to PT. Pain Location: No Pain Reported Section J - Health Conditions 1. Rarely or not at all 2. Occasionally 3. Frequently 4. Almost constantly 8. Unable to answer Pain Effect on Sleep: 2 Pain Interference with Therapy: 2 Pain Interference w/Day-to-Day: 2 Mental Status Patient Orientation: Person, MR, [place] Transfers SCALE: Activities may be completed with or without assistive devices. 3-Acundppsvw-crrwgit completes the activity by him/herself with no assistance from a helper. 5-Set-up or Clean-up Assistance-helper sets up or cleans up; patient completes activity. [place] assists only prior to or following the activity. 4-Supervision or Touching Assistance-helper provides verbal cues and/or touching/steadying and/or contact guard assistance as patient completes activity. Assistance may be provided throughout the activity or intermittently. 3-Partial/Moderate Assistance-helper does LESS THAN HALF the effort. [place] lifts, holds or supports trunk or limbs, but provides less than half the effort. 2-Substantial/Maximal Assistance-helper does MORE THAN HALF the effort. [place] lifts or holds trunk or limbs and provides more than half the effort. 6-Iadyimlsp-onowhr does ALL the effort. Patient does none of the effort to complete the activity. Or, the assistance of 2 or more helpers is required for the patient to complete the activity. If activity was not attempted, code reason: 7-Patient Refused. 9-Not Applicable-not attempted and the patient did not perform the activity before the current illness, exacerbation or injury. 10-Not Attempted due to Environmental Limitations-(lack of equipment, weather restraints, etc.). 88-Not Attempted due to Medical Conditions or Safety Concerns. Sit to Stand (QC): 5 Weight Bearing Right Lower Extremity: Right Full Weight Bearing Left Lower Extremity: Left Full Weight Bearing Gait Training Does the Patient Walk?: Yes Distance: 275',325' Walk 10 feet (QC): 5 Walk 50 ft with 2 Turns(QC): 5 Walk 150 ft (QC): 5 Gait Assistive Device: None Stair Training Stair Training: Handrails/: 2 handrails #of Steps: 12 1 Step (curb) (QC): 5 4 Steps (QC): 5 12 Steps (QC): 5 Stairs: Pattern: Reciprocal Treatments Pt walks, taking RB as needed. Pt completes 12 steps then takes RB and amb again in hallway before returning to room to rest before lunch. Assessment Current Status: Good Progress Pt continues to stay busy or falls asleep if sitting for too long. Pt is impulsive. PT Spacecraft Systems Engineer Goals Snf Goals PT Spacecraft Systems Engineer Goals Time Frame: May 26, 2023 Roll Left & Right (QC): 6 (Pt will be Mod I with bed mobility tasks and functional transfers. ) Sit to Lying (QC): 6 (Pt will be Mod I with bed mobility tasks and functional transfers. ) Lying-Sitting on Side/Bed(QC): 6 (Pt will be Mod I with bed mobility tasks and functional transfers. ) Sit to Stand (QC): 6 (Pt will be Mod I with bed mobility tasks and functional transfers. ) Chair/Tvx-sk-Oufkr Xfer(QC): 6 (Pt will be Mod I with bed mobility tasks and functional transfers. ) Toilet Transfer (QC): 6 (Pt will be Mod I with bed mobility tasks and functional transfers. ) Car Transfer (QC): 6 (Pt will be Mod I with bed mobility tasks and functional transfers. ) Does the Patient Walk: Yes Walk 10 feet (QC): 4 (Pt will be SBA/CGA for walking. ) Walk 50ft with 2 Turns (QC): 4 (Pt will be SBA/CGA for walking. ) Walk 150 ft (QC): 4 (Pt will be SBA/CGA for walking. ) Walking 10ft on Uneven Surface: 4 (Pt will be SBA/CGA for walking. ) 1 Step (curb) (QC): 4 (Pt will be SBA/CGA for steps ) 4 Steps (QC): 4 (Pt will be SBA/CGA for steps ) 12 Steps (QC): 4 (Pt will be SBA/CGA for steps ) Picking up an Object (QC): 4 (Pt will be SBA/CGA for picking up an object ) Does the Pt use WC or Scooter?: No Wheel 50 feet with 2 turns (QC: 9 Type: N/A Wheel 150 feet: 9 Type: N/A PT Plan Problem List Problem List: Safety Treatment/Plan Treatment Plan: Continue Plan of Care Treatment Plan: Bed Mobility, Education, Functional Activity Stefania, Functional Strength, Group Therapy, Gait, Safety, Therapeutic Exercise, Transfers Treatment Duration: May 26, 2023 Frequency: At least 5 of 7 days/Wk (IRF) Estimated Hrs Per Day: Other (75 min/day ) Patient and/or Family Agrees t: Yes Safety Risks/Education Patient Education: Safety Issues Response to Teaching: Unable to Comprehend Time Time In: 1100 Time Out: 1145 DATE: May 13, 2023 Total Billed Treatment Time: 45 Total Billed Treatment 1, GT x2 (30m) & FA (15m) FAROOQ BECERRA DANCE CHOREOGRAPHER May 13, 2023 14:46
--- NOTE | 2023-05-13 14:55 | Physical Therapy Daily Note ---
PT Daily Note-Current Subjective Pt sitting at table in Therapy Yes[facility] upon arrival. Nursing stated Pt won't stay in recliner so was brought to Therapy [employer] and given activities to work with. Pt agrees to PT. Pain Location: No Pain Reported Section J - Health Conditions 1. Rarely or not at all 2. Occasionally 3. Frequently 4. Almost constantly 8. Unable to answer Pain Effect on Sleep: 2 Pain Interference with Therapy: 2 Pain Interference w/Day-to-Day: 2 Mental Status Patient Orientation: Person, MR, [place] Transfers SCALE: Activities may be completed with or without assistive devices. 6-Ygxtxfkcsi-tptxwhs completes the activity by him/herself with no assistance from a helper. 5-Set-up or Clean-up Assistance-helper sets up or cleans up; patient completes activity. [place] assists only prior to or following the activity. 4-Supervision or Touching Assistance-helper provides verbal cues and/or touching/steadying and/or contact guard assistance as patient completes activity. Assistance may be provided throughout the activity or intermittently. 3-Partial/Moderate Assistance-helper does LESS THAN HALF the effort. [place] lifts, holds or supports trunk or limbs, but provides less than half the effort. 2-Substantial/Maximal Assistance-helper does MORE THAN HALF the effort. [place] lifts or holds trunk or limbs and provides more than half the effort. 2-Xlrmefepb-iwxctt does ALL the effort. Patient does none of the effort to complete the activity. Or, the assistance of 2 or more helpers is required for the patient to complete the activity. If activity was not attempted, code reason: 7-Patient Refused. 9-Not Applicable-not attempted and the patient did not perform the activity before the current illness, exacerbation or injury. 10-Not Attempted due to Environmental Limitations-(lack of equipment, weather restraints, etc.). 88-Not Attempted due to Medical Conditions or Safety Concerns. Sit to Stand (QC): 5 Weight Bearing Right Lower Extremity: Right Full Weight Bearing Left Lower Extremity: Left Full Weight Bearing Treatments STREET CLEANING EQUIPMENT OPERATOR attempts standing reaching balance activity at tabletop although pt keeps sitting down in nearby chairs. Pt works with STREET CLEANING EQUIPMENT OPERATOR on puzzle and building blocks for seated dynamic balance. Pt wants to remain at table w/Nursing after tx. All needs met. Assessment Current Status: Fair Progress Pt is difficult to keep on task as pt is unfocused and sleepy but won't stay in room to nap after tx is over. PT Prison Goals Software Program Manager Goals PT Prison Goals Time Frame: May 26, 2023 Roll Left & Right (QC): 6 (Pt will be Mod I with bed mobility tasks and functional transfers. ) Sit to Lying (QC): 6 (Pt will be Mod I with bed mobility tasks and functional transfers. ) Lying-Sitting on Side/Bed(QC): 6 (Pt will be Mod I with bed mobility tasks and functional transfers. ) Sit to Stand (QC): 6 (Pt will be Mod I with bed mobility tasks and functional transfers. ) Chair/Mss-gz-Ryfqo Xfer(QC): 6 (Pt will be Mod I with bed mobility tasks and functional transfers. ) Toilet Transfer (QC): 6 (Pt will be Mod I with bed mobility tasks and functional transfers. ) Car Transfer (QC): 6 (Pt will be Mod I with bed mobility tasks and functional transfers. ) Does the Patient Walk: Yes Walk 10 feet (QC): 4 (Pt will be SBA/CGA for walking. ) Walk 50ft with 2 Turns (QC): 4 (Pt will be SBA/CGA for walking. ) Walk 150 ft (QC): 4 (Pt will be SBA/CGA for walking. ) Walking 10ft on Uneven Surface: 4 (Pt will be SBA/CGA for walking. ) 1 Step (curb) (QC): 4 (Pt will be SBA/CGA for steps ) 4 Steps (QC): 4 (Pt will be SBA/CGA for steps ) 12 Steps (QC): 4 (Pt will be SBA/CGA for steps ) Picking up an Object (QC): 4 (Pt will be SBA/CGA for picking up an object ) Does the Pt use WC or Scooter?: No Wheel 50 feet with 2 turns (QC: 9 Type: N/A Wheel 150 feet: 9 Type: N/A PT Plan Problem List Problem List: Activity Tolerance, Safety Treatment/Plan Treatment Plan: Continue Plan of Care Treatment Plan: Bed Mobility, Education, Functional Activity Stefania, Functional Strength, Group Therapy, Gait, Safety, Therapeutic Exercise, Transfers Treatment Duration: May 26, 2023 Frequency: At least 5 of 7 days/Wk (IRF) Estimated Hrs Per Day: Other (75 min/day ) Patient and/or Family Agrees t: Yes Time Time In: 1330 Time Out: 1400 DATE: May 13, 2023 Total Billed Treatment Time: 30 Total Billed Treatment 1, FA x2 (30m) FAROOQ BECERRA STREET CLEANING EQUIPMENT OPERATOR May 13, 2023 14:55
[2023-05-13 20:00] VITALS: BP 107/63
[2023-05-13 21:38] VITALS: BP 99/63
[2023-05-13 22:36] VITALS: BP 114/66
--- NOTE | 2023-05-14 05:18 | PM&R Progress Note ---
Subjective HPI/CC On Admission Date Seen by Provider: May 14, 2023 Time Seen by Provider: 12:00 Subjective/Events-last exam 05/14/2023: Patient doing pretty well Cognition is getting closer to baseline No falls No pain 05/13/2023: Patient doing a lot better Seems to be more interactive No falls No pain We will monitor bowel function Review of Systems General: Fatigue, Malaise Objective Exam Vital Signs Vital Signs Date Time Temp Pulse Resp B/P (MAP) Pulse Ox O2 Delivery O2 Flow Rate FiO2 05/14/23 22:00 36.9 110 20 99/55 (70) 99 05/14/23 10:42 Room Air Capillary Refill : General Appearance: WD/WN, Anxious, Chronically ill, Thin HEENT: PERRL/EOMI, Normal ENT Inspection, Pharynx Normal Neck: Full Range of Motion, Normal Inspection, Non Tender, Supple, Carotid Bruit Respiratory: Chest Non Tender, Lungs Clear, Normal Breath Sounds, No Accessory Muscle Use, No Respiratory Distress Cardiovascular: Regular Rate, Rhythm, No Edema, No Gallop, No JVD, No Murmur, Normal Peripheral Pulses Gastrointestinal: Normal Bowel Sounds, No Organomegaly, No Pulsatile Mass, Non Tender, Soft Back: Normal Inspection, No CVA Tenderness, No Vertebral Tenderness Extremity: Normal Capillary Refill, Normal Inspection, Normal Range of Motion, Non Tender, No Calf Tenderness, No Pedal Edema Neurologic/Psychiatric: Alert, 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 FIM Transfers Therapy Code Descriptions/Definitions Functional [place] Measure: 0=Not Assessed/NA 4=Minimal Assistance 1=Total Assistance 5=Supervision or Setup 2=Maximal Assistance 6=Modified [place] 3=Moderate Assistance 7=Complete IndependenceSCALE: Activities may be completed with or without assistive devices. 3-Bcqaklyzix-oohpgfa completes the activity by him/herself with no assistance from a helper. 5-Set-up or Clean-up Assistance-helper sets up or cleans up; patient completes activity. [place] assists only prior to or following the activity. 4-Supervision or Touching Assistance-helper provides verbal cues and/or touching/steadying and/or contact guard assistance as patient completes activity. Assistance may be provided throughout the activity or intermittently. 3-Partial/Moderate Assistance-helper does LESS THAN HALF the effort. [place] lifts, holds or supports trunk or limbs, but provides less than half the effort. 2-Substantial/Maximal Assistance-helper does MORE THAN HALF the effort. [place] lifts or holds trunk or limbs and provides more than half the effort. 0-Jmjlzdfzr-rmyubs does ALL the effort. Patient does none of the effort to complete the activity. Or, the assistance of 2 or more helpers is required for the patient to complete the activity. If activity was not attempted, code reason: 7-Patient Refused. 9-Not Applicable-not attempted and the patient did not perform the activity before the current illness, exacerbation or injury. 10-Not Attempted due to Environmental Limitations-(lack of equipment, weather restraints, etc.). 88-Not Attempted due to Medical Conditions or Safety Concerns. Roll Left to Right (QC): 4 (SBA ) Sit to Lying (QC): 4 (SBA ) Sit to Stand (QC): 5 Chair/Odv-gg-Suddm Xfer(QC): 4 (CGA ) Car Transfer (QC): 4 (CGA ) Gait Training Does the Patient Walk?: Yes Distance: 275',325' Walk 10 feet (QC): 5 Walk 50 ft with 2 Turns(QC): 5 Walk 150 ft (QC): 5 Walking 10ft/uneven surface-QC: 3 (Min A for balance ) Gait Assistive Device: None Wheelchair Training Does the Pt Use a Wheelchair?: No Wheel 50 ft with 2 turns (QC): 9 Wheel 150 ft (QC): 9 Type of Wheelchair: N/A Stair Training Stair Training: Handrails/: 2 handrails #of Steps: 12 1 Step (curb) (QC): 5 4 Steps (QC): 5 12 Steps (QC): 5 Stairs: Pattern: Reciprocal Balance Picking up an Object (QC): 3 (Min A for balance ) ADL-Treatment Eating (QC): 5 Oral Hygiene (QC): 4 Shower/Bathe Self (QC): 7 Upper Body Dressing (QC): 5 Lower Body Dressing (QC): 4 On/Off Footwear (QC): 5 Toileting Hygiene (QC): 4 Toilet Transfer (QC): 4 Assessment/Plan Assessment and Plan Assess & Plan/Chief Complaint Assessment: Fall with subdural hematomas Seizure disorder Intellectual delay Tachycardia Anxiety Malnutrition Plan: Home meds Supportive care Check labs in morning PT and OT 05/13/2023: Supportive care Monitor closely 05/14/2023: Supportive shelter meds (1) Subdural hematoma ERNST PAYTON DO May 14, 2023 05:18
[2023-05-14] MEDS: THERAPEUTIC MULTIVITAMIN W/MINERALS TABLET PO SCH (06:02)
[2023-05-14] MEDS: CALCIUM CARBONATE 600 MG +VITAMIN D TABLET PO SCH (06:02)
[2023-05-14 08:00] VITALS: BP 116/80
[2023-05-14] MEDS: LACTOBACILLUS ACIDOPHILUS (PROBIOTIC) CAPSULE PO SCH (08:18)
[2023-05-14] MEDS: toPIRamate 100 MG (TOPAMAX) TAB PO SCH ×2 (08:18→20:54)
[2023-05-14] MEDS: cloNIDine 0.1 MG TABLET PO SCH ×2 (08:18→21:00)
[2023-05-14] MEDS: CITALOPRAM 20 MG TABLET PO SCH (08:18)
[2023-05-14] MEDS: meTOprolol TARTRATE (IR) 50 MG TABLET PO SCH ×3 (08:18→21:00)
[2023-05-14] MEDS: cloZAPine 100 MG TABLET PO SCH ×2 (08:20→20:54)
[2023-05-14] MEDS: lamoTRIgine 25 MG TABLET PO SCH ×2 (08:20→20:54)
[2023-05-14 08:53] VITALS: BP 116/80
[2023-05-14] MEDS: DOCUSATE SODIUM 100 MG CAPSULE PO SCH ×2 (09:32→21:00)
[2023-05-14] MEDS: SENNA W/DOCUSATE TABLET PO SCH ×2 (09:32→20:54)
--- NOTE | 2023-05-14 10:10 | Speech Therapy Daily Note ---
Speech Daily Progress Note Subjective Date Seen by Provider: May 14, 2023 Time Seen by Provider: 08:00 The pt was awake and alert, talking throughout session. Objective Breakfast meal completed with patient. Tray set up was completed, with all food cut into bite-size pieces. She continues to demonstrate fast eating rate, however the pt was able to follow directions to take one piece of food at a time and did not overfill mouth during meal. No s/s aspiration observed during session. The pt was able to follow one-step directions with good accuracy when attention to speaker and activity was established. 2-component directions were completed, with 0% accuracy. The pt consistently followed one component of the embedded directions. The pt labeled items, and described color. She was able to imitate drawing a curving line, otherwise perseverated with writing her naming. Finding letters of her name from choices was at 0% accuracy. Yes/no questions were answered re: personal preference with 75% clarity. Assessment Assessment Current Status: Good Progress Treatment Plan Continue Plan of Care Speech Churn Drill Operator Goals Longterm Goals 1. The pt will tolerate regular diet with slowed rate of eating with occasional reminders. 2. The pt will provide clear y/n response to personal care questions. 3. The pt will increase appropriate verbalizations during tasks. Speech-Plan Treatment Plan Speech Therapy Treatment Plan: Concurrent Therapy Treatment Duration: May 13, 2023 Frequency: At least 5 of 7 days/Wk (IRF) Estimated Hrs Per Day: Other (45 min/day) Rehab Potential: Good Barriers to Learning: Cognitive deficits Discharge Recommendations Other, See Comments (nursing home) Time Speech Therapy Time In: 08:00 Speech Therapy Time Out: 08:45 DATE: May 14, 2023 Total Billed Time: 45 Billed Treatment Time 1 SLTS (20 min) 1 DYST (25 min) EREN WOMACK May 14, 2023 10:10
[2023-05-14 10:42] VITALS: BP 118/73
--- NOTE | 2023-05-14 12:02 | Occupational Ther Daily Note ---
OT Current Status-Daily Note Subjective Pt alert, sitting in chair writing name in notebook. Difficult to finish preferred task to complete functional tasks. Items need to be placed in designated area so pt will know where they are at. Recommendation that pt only have one group of items to use at a time due to difficulty with moving from one task to another, ie (bears or baby or coloring). Mental Status/Objective Patient Orientation: Person, MR ADL-Treatment Pt required multiple cues for sponge bathing to initiation of task, placing wash cloth in hand and cues to stay on task. Set up for UBD. SBA for LBD. Set up for oral care. Supervision for toileting, pt will wipe though not efficiently, cues needed. After therapy, pt sitting in recliner with call light/phone in reach. Safety measures in place. All needs met. Therapy Code Descriptions/Definitions Functional [place] Measure: 0=Not Assessed/NA 4=Minimal Assistance 1=Total Assistance 5=Supervision or Setup 2=Maximal Assistance 6=Modified [place] 3=Moderate Assistance 7=Complete IndependenceSCALE: Activities may be completed with or without assistive devices. 0-Mynsdsacbs-jcdrnqr completes the activity by him/herself with no assistance from a helper. 5-Set-up or Clean-up Assistance-helper sets up or cleans up; patient completes activity. [place] assists only prior to or following the activity. 4-Supervision or Touching Assistance-helper provides verbal cues and/or touching/steadying and/or contact guard assistance as patient completes activity. Assistance may be provided throughout the activity or intermittently. 3-Partial/Moderate Assistance-helper does LESS THAN HALF the effort. [place] lifts, holds or supports trunk or limbs, but provides less than half the effort. 2-Substantial/Maximal Assistance-helper does MORE THAN HALF the effort. [place] lifts or holds trunk or limbs and provides more than half the effort. 2-Ftzrvfknv-pasxvb does ALL the effort. Patient does none of the effort to complete the activity. Or, the assistance of 2 or more helpers is required for the patient to complete the activity. If activity was not attempted, code reason: 7-Patient Refused. 9-Not Applicable-not attempted and the patient did not perform the activity before the current illness, exacerbation or injury. 10-Not Attempted due to Environmental Limitations-(lack of equipment, weather restraints, etc.). 88-Not Attempted due to Medical Conditions or Safety Concerns. Oral Hygiene (QC): 5 Shower/Bathe Self (QC): 4 Upper Body Dressing (QC): 5 Lower Body Dressing (QC): 4 On/Off Footwear: 5 Toileting Hygiene (QC): 4 Toilet Transfer (QC): 4 OT Group Home Goals Group Home Goals Time Frame: May 28, 2023 Acute change in mental status: 1 Inattention: 1 Disorganized thinkin Altered level of consciousness: 0 Eating (QC): 6 Oral Hygiene (QC): 4 Toileting Hygiene (QC): 4 Shower/Bathe Self (QC): 4 Upper Body Dressing (QC): 4 Lower Body Dressing (QC): 4 On/Off Footwear (QC): 4 Additional Goals: 1-Demonstrate ADL Tasks, 2-Verbalize Understanding, 3-Impro veStrength/Stefania 1=Demonstrate adherence to instructed precautions during ADL tasks. 2=Patient will verbalize/demonstrate understanding of assistive devices/modifications for ADL. 3=Patient will improve strength/tolerance for activity to enable patient to perform ADL's. OT Education/Plan Problem List/Assessment Assessment: Decreased Safety Aware, Impaired Cognition Discharge Recommendations Plan/Recommendations: Continue POC Treatment Plan/Plan of Care Patient would benefit from OT for education, treatment and training to promote independence in ADL's, mobility, safety and/or upper extremity function for ADL's. Plan of Care: ADL Retraining, Functional Mobility, Group Exercise/Act as Ind, UE Funct Exercise/Act Treatment Duration: May 28, 2023 Frequency: At least 5 of 7 days/Wk (IRF) Estimated Hrs Per Day: Other (75 mins per day) Agreement: Yes Rehab Potential: Good Time Start Time: 11:15 Stop Time: 12:00 DATE: May 14, 2023 Total Time Billed (hr/min): 45 Billed Treatment Time 1 visit-ADL 3 (45 min) CHANDLER DENTON May 14, 2023 12:02
--- NOTE | 2023-05-14 12:36 | Physical Therapy Daily Note ---
PT Daily Note-Current Subjective Pt found seated in recliner upon entry. Pt has difficulty communicating /c helper but does not appear to have any pain currently. Pain Section J - Health Conditions 1. Rarely or not at all 2. Occasionally 3. Frequently 4. Almost constantly 8. Unable to answer Pain Effect on Sleep: 2 Pain Interference with Therapy: 2 Pain Interference w/Day-to-Day: 2 Mental Status Patient Orientation: Confused Transfers SCALE: Activities may be completed with or without assistive devices. 9-Uyqqmprdon-xselsee completes the activity by him/herself with no assistance from a helper. 5-Set-up or Clean-up Assistance-helper sets up or cleans up; patient completes activity. [place] assists only prior to or following the activity. 4-Supervision or Touching Assistance-helper provides verbal cues and/or touching/steadying and/or contact guard assistance as patient completes activity. Assistance may be provided throughout the activity or intermittently. 3-Partial/Moderate Assistance-helper does LESS THAN HALF the effort. [place] lifts, holds or supports trunk or limbs, but provides less than half the effort. 2-Substantial/Maximal Assistance-helper does MORE THAN HALF the effort. [place] lifts or holds trunk or limbs and provides more than half the effort. 9-Twbtyvwmt-oboqrj does ALL the effort. Patient does none of the effort to complete the activity. Or, the assistance of 2 or more helpers is required for the patient to complete the activity. If activity was not attempted, code reason: 7-Patient Refused. 9-Not Applicable-not attempted and the patient did not perform the activity before the current illness, exacerbation or injury. 10-Not Attempted due to Environmental Limitations-(lack of equipment, weather restraints, etc.). 88-Not Attempted due to Medical Conditions or Safety Concerns. Sit to Stand (QC): 6 Toilet Transfer (QC): 6 Weight Bearing Right Lower Extremity: Right Full Weight Bearing Left Lower Extremity: Left Full Weight Bearing Gait Training Does the Patient Walk?: Yes Distance: 300, 80 Walk 10 feet (QC): 4 Walk 50 ft with 2 Turns(QC): 4 Walk 150 ft (QC): 4 Gait Persons Needed: 1 Gait Assistive Device: FWW Neuromuscular - Balloon kicking activity in hallway x 250 feet - Standing on Airex unsupported x 1 minute Treatments Seated Therapeutic Exercises (B) x 10 ea: - LAQs - Marching - Hip add Assessment Current Status: Good Progress Pt performs sit to stand from recliner and toilet transfer independently. Ambulates without use of an AD up to 300 feet /c SBA for safety due to strength deficits. Pt given frequent verbal cues for correct head posture and increased step length. No loss of balance demonstrated throughout gait training. Pt demonstrated good tolerance to balance and coordination training. Frequent verbal cues required to perform seated therapeutic exercises. Pt left in recliner post-treatment /c bed alarm on, call light in place, and all needs met post-treatment. Continue to progress pt per POC. PT Long-Term Goals Long-Term Goals PT Senior Systems Programmer Goals Time Frame: May 26, 2023 Roll Left & Right (QC): 6 (Pt will be Mod I with bed mobility tasks and functional transfers. ) Sit to Lying (QC): 6 (Pt will be Mod I with bed mobility tasks and functional transfers. ) Lying-Sitting on Side/Bed(QC): 6 (Pt will be Mod I with bed mobility tasks and functional transfers. ) Sit to Stand (QC): 6 (Pt will be Mod I with bed mobility tasks and functional transfers. ) Chair/Tip-hu-Rqriw Xfer(QC): 6 (Pt will be Mod I with bed mobility tasks and functional transfers. ) Toilet Transfer (QC): 6 (Pt will be Mod I with bed mobility tasks and functional transfers. ) Car Transfer (QC): 6 (Pt will be Mod I with bed mobility tasks and functional transfers. ) Does the Patient Walk: Yes Walk 10 feet (QC): 4 (Pt will be SBA/CGA for walking. ) Walk 50ft with 2 Turns (QC): 4 (Pt will be SBA/CGA for walking. ) Walk 150 ft (QC): 4 (Pt will be SBA/CGA for walking. ) Walking 10ft on Uneven Surface: 4 (Pt will be SBA/CGA for walking. ) 1 Step (curb) (QC): 4 (Pt will be SBA/CGA for steps ) 4 Steps (QC): 4 (Pt will be SBA/CGA for steps ) 12 Steps (QC): 4 (Pt will be SBA/CGA for steps ) Picking up an Object (QC): 4 (Pt will be SBA/CGA for picking up an object ) Does the Pt use WC or Scooter?: No Wheel 50 feet with 2 turns (QC: 9 Type: N/A Wheel 150 feet: 9 Type: N/A PT Plan Treatment/Plan Treatment Plan: Continue Plan of Care Treatment Plan: Bed Mobility, Education, Functional Activity Stefania, Functional Strength, Group Therapy, Gait, Safety, Therapeutic Exercise, Transfers Treatment Duration: May 26, 2023 Frequency: At least 5 of 7 days/Wk (IRF) Estimated Hrs Per Day: Other (75 min/day ) Patient and/or Family Agrees t: Yes Time Time In: 914 Time Out: 0 DATE: May 14, 2023 Total Billed Treatment Time: 75 Total Billed Treatment 1 visit GT x 2 NM x 1 EX x 1 FA x 1 REZA MEJIA CAT SCAN TECH May 14, 2023 12:36
--- NOTE | 2023-05-14 14:00 | Occupational Ther Daily Note ---
OT Current Status-Daily Note Subjective Pt alert, sitting in recliner. Pt required cues to finish coloring task to participate in OT session. Pt agrees to therapy. No c/o pain. Mental Status/Objective Patient Orientation: Person, ADL-Treatment Supervision for toileting. Supervision for handwashing standing at sink. Therapy Code Descriptions/Definitions Functional [place] Measure: 0=Not Assessed/NA 4=Minimal Assistance 1=Total Assistance 5=Supervision or Setup 2=Maximal Assistance 6=Modified [place] 3=Moderate Assistance 7=Complete IndependenceSCALE: Activities may be completed with or without assistive devices. 7-Wdfppncmhl-etzplta completes the activity by him/herself with no assistance from a helper. 5-Set-up or Clean-up Assistance-helper sets up or cleans up; patient completes activity. [place] assists only prior to or following the activity. 4-Supervision or Touching Assistance-helper provides verbal cues and/or touching/steadying and/or contact guard assistance as patient completes activity. Assistance may be provided throughout the activity or intermittently. 3-Partial/Moderate Assistance-helper does LESS THAN HALF the effort. [place] lifts, holds or supports trunk or limbs, but provides less than half the effort. 2-Substantial/Maximal Assistance-helper does MORE THAN HALF the effort. [place] lifts or holds trunk or limbs and provides more than half the effort. 8-Iusikhhga-lcdegn does ALL the effort. Patient does none of the effort to complete the activity. Or, the assistance of 2 or more helpers is required for the patient to complete the activity. If activity was not attempted, code reason: 7-Patient Refused. 9-Not Applicable-not attempted and the patient did not perform the activity before the current illness, exacerbation or injury. 10-Not Attempted due to Environmental Limitations-(lack of equipment, weather restraints, etc.). 88-Not Attempted due to Medical Conditions or Safety Concerns. Toileting Hygiene (QC): 4 Toilet Transfer (QC): 4 Other Treatment Attempted to have pt place eyes/mouth first responder coloring page face, placed 1 out 3 in correct area. Pt then working on fine motor tasks for strengthening and dexterity. After therapy, pt lying in bed with call light/phone in reach. All needs met in room. OT [facility]ci Goals Fci Goals Time Frame: May 28, 2023 Acute change in mental status: 1 Inattention: 1 Disorganized thinkin Altered level of consciousness: 0 Eating (QC): 6 Oral Hygiene (QC): 4 Toileting Hygiene (QC): 4 Shower/Bathe Self (QC): 4 Upper Body Dressing (QC): 4 Lower Body Dressing (QC): 4 On/Off Footwear (QC): 4 Additional Goals: 1-Demonstrate ADL Tasks, 2-Verbalize Understanding, 3- ImproveStrength/Stefania 1=Demonstrate adherence to instructed precautions during ADL tasks. 2=Patient will verbalize/demonstrate understanding of assistive devices/modifications for ADL. 3=Patient will improve strength/tolerance for activity to enable patient to perform ADL's. OT Education/Plan Problem List/Assessment Assessment: Decreased Activ Tolerance, Decreased UE Strength Discharge Recommendations Plan/Recommendations: Continue POC Treatment Plan/Plan of Care Patient would benefit from OT for education, treatment and training to promote independence in ADL's, mobility, safety and/or upper extremity function for ADL's. Plan of Care: ADL Retraining, Functional Mobility, Group Exercise/Act as Ind, U E Funct Exercise/Act Treatment Duration: May 28, 2023 Frequency: At least 5 of 7 days/Wk (IRF) Estimated Hrs Per Day: Other (75 mins per day) Agreement: Yes Rehab Potential: Good Time Start Time: 13:00 Stop Time: 13:30 DATE: May 14, 2023 Total Time Billed (hr/min): 30 Billed Treatment Time 1 visit-FA 1 (15 min) ADL 1 (15 min) CHANDLER DENTON May 14, 2023 14:00
[2023-05-14] MEDS ORDERED: PIND5TAB PO (15:47)
[2023-05-14] MEDS ORDERED: MEGE400O5 PO (15:47)
[2023-05-14] MEDS ORDERED: CNC1KV IM (15:47)
[2023-05-14] MEDS ORDERED: CALC625T9 PO (15:47)
[2023-05-14] MEDS ORDERED: MAGN400O7 PO (15:47)
[2023-05-14] MEDS ORDERED: METR-145 PO (15:47)
[2023-05-14] MEDS ORDERED: LITH600C PO (15:47)
[2023-05-14] MEDS ORDERED: CARI6CAP PO (15:47)
[2023-05-14] MEDS ORDERED: ESCI20TA39 PO (15:47)
[2023-05-14 20:00] VITALS: BP 97/53
[2023-05-14 21:00] VITALS: BP 104/58
[2023-05-14 22:00] VITALS: BP 99/55
[2023-05-15] MEDS: THERAPEUTIC MULTIVITAMIN W/MINERALS TABLET PO SCH (06:17)
[2023-05-15] MEDS: CALCIUM CARBONATE 600 MG +VITAMIN D TABLET PO SCH (06:17)
[2023-05-15 08:00] VITALS: BP 108/71
[2023-05-15] MEDS: DOCUSATE SODIUM 100 MG CAPSULE PO SCH ×2 (09:45→21:49)
[2023-05-15] MEDS: SENNA W/DOCUSATE TABLET PO SCH ×2 (09:45→21:49)
[2023-05-15] MEDS: cloNIDine 0.1 MG TABLET PO SCH ×2 (09:48→21:48)
[2023-05-15] MEDS: lamoTRIgine 25 MG TABLET PO SCH ×2 (09:48→21:43)
[2023-05-15] MEDS: LACTOBACILLUS ACIDOPHILUS (PROBIOTIC) CAPSULE PO SCH (09:48)
[2023-05-15] MEDS: toPIRamate 100 MG (TOPAMAX) TAB PO SCH ×2 (09:48→21:43)
[2023-05-15] MEDS: meTOprolol TARTRATE (IR) 50 MG TABLET PO SCH ×2 (09:48→21:44)
[2023-05-15] MEDS: CITALOPRAM 20 MG TABLET PO SCH (09:48)
[2023-05-15] MEDS: cloZAPine 100 MG TABLET PO SCH ×2 (09:49→21:43)
--- NOTE | 2023-05-15 11:07 | PM&R Progress Note ---
Subjective HPI/CC On Admission Date Seen by Provider: May 15, 2023 Time Seen by Provider: 11:00 Subjective/Events-last exam 05/15/2023: Doing well No pain reported No falls 05/14/2023: Patient doing pretty well Cognition is getting closer to baseline No falls No pain 05/13/2023: Patient doing a lot better Seems to be more interactive No falls No pain We will monitor bowel function Review of Systems General: Fatigue, Malaise Objective Exam Vital Signs Vital Signs Date Time Temp Pulse Resp B/P (MAP) Pulse Ox O2 Delivery O2 Flow Rate FiO2 05/15/23 09:00 Room Air 05/15/23 08:00 36.6 125 20 108/71 (83) 99 Capillary Refill : General Appearance: WD/WN, Anxious, Chronically ill, Thin HEENT: PERRL/EOMI, Normal ENT Inspection, Pharynx Normal Neck: Full Range of Motion, Normal Inspection, Non Tender, Supple, Carotid Bruit Respiratory: Chest Non Tender, Lungs Clear, Normal Breath Sounds, No Accessory Muscle Use, No Respiratory Distress Cardiovascular: Regular Rate, Rhythm, No Edema, No Gallop, No JVD, No Murmur, Normal Peripheral Pulses Gastrointestinal: Normal Bowel Sounds, No Organomegaly, No Pulsatile Mass, Non Tender, Soft Back: Normal Inspection, No CVA Tenderness, No Vertebral Tenderness Extremity: Normal Capillary Refill, Normal Inspection, Normal Range of Motion, Non Tender, No Calf Tenderness, No Pedal Edema Neurologic/Psychiatric: 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 FIM Transfers Therapy Code Descriptions/Definitions Functional [place] Measure: 0=Not Assessed/NA 4=Minimal Assistance 1=Total Assistance 5=Supervision or Setup 2=Maximal Assistance 6=Modified [place] 3=Moderate Assistance 7=Complete IndependenceSCALE: Activities may be completed with or without assistive devices. 9-Tehwvxjfnm-crqemcv completes the activity by him/herself with no assistance from a helper. 5-Set-up or Clean-up Assistance-helper sets up or cleans up; patient completes activity. [place] assists only prior to or following the activity. 4-Supervision or Touching Assistance-helper provides verbal cues and/or t ouching/steadying and/or contact guard assistance as patient completes activity. Assistance may be provided throughout the activity or intermittently. 3-Partial/Moderate Assistance-helper does LESS THAN HALF the effort. [place] lifts, holds or supports trunk or limbs, but provides less than half the effort. 2-Substantial/Maximal Assistance-helper does MORE THAN HALF the effort. [place] lifts or holds trunk or limbs and provides more than half the effort. 9-Kazzrauba-djszll does ALL the effort. Patient does none of the effort to complete the activity. Or, the assistance of 2 or more helpers is required for the patient to complete the activity. If activity was not attempted, code reason: 7-Patient Refused. 9-Not Applicable-not attempted and the patient did not perform the activity before the current illness, exacerbation or injury. 10-Not Attempted due to Environmental Limitations-(lack of equipment, weather restraints, etc.). 88-Not Attempted due to Medical Conditions or Safety Concerns. Roll Left to Right (QC): 4 (SBA ) Sit to Lying (QC): 4 (SBA ) Sit to Stand (QC): 6 Chair/Vdh-oc-Wmdpj Xfer(QC): 4 (CGA ) Car Transfer (QC): 4 (CGA ) Gait Training Does the Patient Walk?: Yes Distance: 300, 80 Walk 10 feet (QC): 4 Walk 50 ft with 2 Turns(QC): 4 Walk 150 ft (QC): 4 Walking 10ft/uneven surface-QC: 3 (Min A for balance ) Gait Persons Needed: 1 Gait Assistive Device: FWW Wheelchair Training Does the Pt Use a Wheelchair?: No Wheel 50 ft with 2 turns (QC): 9 Wheel 150 ft (QC): 9 Type of Wheelchair: N/A Stair Training Stair Training: Handrails/: 2 handrails #of Steps: 12 1 Step (curb) (QC): 5 4 Steps (QC): 5 12 Steps (QC): 5 Stairs: Pattern: Reciprocal Balance Picking up an Object (QC): 3 (Min A for balance ) ADL-Treatment Eating (QC): 5 Oral Hygiene (QC): 5 Shower/Bathe Self (QC): 4 Upper Body Dressing (QC): 5 Lower Body Dressing (QC): 4 On/Off Footwear (QC): 5 Toileting Hygiene (QC): 4 Toilet Transfer (QC): 4 Assessment/Plan Assessment and Plan Assess & Plan/Chief Complaint Assessment: Fall with subdural hematomas Seizure disorder Intellectual delay Tachycardia Anxiety Malnutrition Plan: Home meds Supportive care Check labs in morning PT and OT 05/13/2023: Supportive care Monitor closely 05/14/2023: Supportive longterm meds 05/15/2023: Improved (1) Subdural hematoma ERNST PAYTON DO May 15, 2023 11:07
[2023-05-15 20:14] VITALS: BP 100/66
[2023-05-16] MEDS: THERAPEUTIC MULTIVITAMIN W/MINERALS TABLET PO SCH (06:33)
[2023-05-16] MEDS: CALCIUM CARBONATE 600 MG +VITAMIN D TABLET PO SCH (06:33)
[2023-05-16] MEDS: DOCUSATE SODIUM 100 MG CAPSULE PO SCH ×2 (07:29→20:15)
[2023-05-16] MEDS: SENNA W/DOCUSATE TABLET PO SCH ×2 (08:06→20:15)
[2023-05-16] MEDS: cloNIDine 0.1 MG TABLET PO SCH ×2 (08:06→20:16)
[2023-05-16] MEDS: lamoTRIgine 25 MG TABLET PO SCH ×2 (08:06→20:16)
[2023-05-16] MEDS: cloZAPine 100 MG TABLET PO SCH ×2 (08:06→20:17)
[2023-05-16] MEDS: meTOprolol TARTRATE (IR) 50 MG TABLET PO SCH ×2 (08:06→20:16)
[2023-05-16] MEDS: toPIRamate 100 MG (TOPAMAX) TAB PO SCH ×2 (08:06→20:16)
[2023-05-16] MEDS: LACTOBACILLUS ACIDOPHILUS (PROBIOTIC) CAPSULE PO SCH (08:06)
[2023-05-16] MEDS: CITALOPRAM 20 MG TABLET PO SCH (08:06)
[2023-05-16 08:32] VITALS: BP 104/65
--- NOTE | 2023-05-16 15:27 | PM&R Progress Note ---
Subjective HPI/CC On Admission Date Seen by Provider: May 16, 2023 Time Seen by Provider: 15:30 Subjective/Events-last exam 05/16/2023: No major issues Walking well No falls 05/15/2023: Doing well No pain reported No falls 05/14/2023: Patient doing pretty well Cognition is getting closer to baseline No falls No pain 05/13/2023: Patient doing a lot better Seems to be more interactive No falls No pain We will monitor bowel function Review of Systems General: Fatigue, Malaise Objective Exam Vital Signs Vital Signs Date Time Temp Pulse Resp B/P (MAP) Pulse Ox O2 Delivery O2 Flow Rate FiO2 05/16/23 22:11 36.0 98 22 89/52 (64) 99 Room Air Capillary Refill : General Appearance: WD/WN, Anxious, Chronically ill, Thin HEENT: PERRL/EOMI, Normal ENT Inspection, Pharynx Normal Neck: Full Range of Motion, Normal Inspection, Non Tender, Supple, Carotid Bruit Respiratory: Chest Non Tender, Lungs Clear, Normal Breath Sounds, No Accessory Muscle Use, No Respiratory Distress Cardiovascular: Regular Rate, Rhythm, No Edema, No Gallop, No JVD, No Murmur, Normal Peripheral Pulses Gastrointestinal: Normal Bowel Sounds, No Organomegaly, No Pulsatile Mass, Non Tender, Soft Back: Normal Inspection, No CVA Tenderness, No Vertebral Tenderness Extremity: Normal Capillary Refill, Normal Inspection, Normal Range of Motion, Non Tender, No Calf Tenderness, No Pedal Edema Neurologic/Psychiatric: Alert, convict guard II-XII Norm as Tested, Abnormal Gait, Depressed Affect, Motor Weakness ( generalized, impulsive) Skin: Normal Color, Warm/Dry Lymphatic: No Adenopathy Results/Procedures Lab Patient resulted labs reviewed. FIM Transfers Therapy Code Descriptions/Definitions Functional [place] Measure: 0=Not Assessed/NA 4=Minimal Assistance 1=Total Assistance 5=Supervision or Setup 2=Maximal Assistance 6=Modified [place] 3=Moderate Assistance 7=Complete IndependenceSCALE: Activities may be completed with or without assistive devices. 8-Xiboqppqdd-jnsgayw completes the activity by him/herself with no assistance from a helper. 5-Set-up or Clean-up Assistance-helper sets up or cleans up; patient completes activity. [place] assists only prior to or following the activity. 4-Supervision or Touching Assistance-helper provides verbal cues and/or touching/steadying and/or contact guard assistance as patient completes activity. Assistance may be provided throughout the activity or intermittently. 3-Partial/Moderate Assistance-helper does LESS THAN HALF the effort. [place] lifts, holds or supports trunk or limbs, but provides less than half the effort. 2-Substantial/Maximal Assistance-helper does MORE THAN HALF the effort. [place] lifts or holds trunk or limbs and provides more than half the effort. 7-Qzzhvydcu-rkpevw does ALL the effort. Patient does none of the effort to complete the activity. Or, the assistance of 2 or more helpers is required for the patient to complete the activity. If activity was not attempted, code reason: 7-Patient Refused. 9-Not Applicable-not attempted and the patient did not perform the activity before the current illness, exacerbation or injury. 10-Not Attempted due to Environmental Limitations-(lack of equipment, weather restraints, etc.). 88-Not Attempted due to Medical Conditions or Safety Concerns. Roll Left to Right (QC): 4 (SBA ) Sit to Lying (QC): 4 (SBA ) Sit to Stand (QC): 6 Chair/Xjn-xp-Ywtet Xfer(QC): 4 (CGA ) Car Transfer (QC): 4 (CGA ) Gait Training Does the Patient Walk?: Yes Distance: 300, 80 Walk 10 feet (QC): 4 Walk 50 ft with 2 Turns(QC): 4 Walk 150 ft (QC): 4 Walking 10ft/uneven surface-QC: 3 (Min A for balance ) Gait Persons Needed: 1 Gait Assistive Device: FWW Wheelchair Training Does the Pt Use a Wheelchair?: No Wheel 50 ft with 2 turns (QC): 9 Wheel 150 ft (QC): 9 Type of Wheelchair: N/A Stair Training Stair Training: Handrails/: 2 handrails #of Steps: 12 1 Step (curb) (QC): 5 4 Steps (QC): 5 12 Steps (QC): 5 Stairs: Pattern: Reciprocal Balance Picking up an Object (QC): 3 (Min A for balance ) ADL-Treatment Eating (QC): 5 Oral Hygiene (QC): 5 Shower/Bathe Self (QC): 4 Upper Body Dressing (QC): 5 Lower Body Dressing (QC): 4 On/Off Footwear (QC): 5 Toileting Hygiene (QC): 4 Toilet Transfer (QC): 4 Assessment/Plan Assessment and Plan Assess & Plan/Chief Complaint Assessment: Fall with subdural hematomas Seizure disorder Intellectual delay Tachycardia Anxiety Malnutrition Plan: Home meds Supportive care Check labs in morning PT and OT 05/13/2023: Supportive care Monitor closely 05/14/2023: Supportive group home meds 05/15/2023: Improved 05/16/2023: Monitor closely Check labs in am (1) Subdural hematoma ERNST PAYTON DO May 16, 2023 15:27
[2023-05-16 19:54] VITALS: BP 95/52
[2023-05-16 20:12] VITALS: BP 106/56
[2023-05-16 20:55] VITALS: BP 85/53
[2023-05-16 22:11] VITALS: BP 89/52
--- NOTE | 2023-05-17 05:13 | PM&R Progress Note ---
Subjective HPI/CC On Admission Date Seen by Provider: May 17, 2023 Time Seen by Provider: 11:00 Subjective/Events-last exam 05/17/2023: Improved overall Ready for DC tomorrow Labs stable 05/16/2023: No major issues Walking well No falls 05/15/2023: Doing well No pain reported No falls 05/14/2023: Patient doing pretty well Cognition is getting closer to baseline No falls No pain 05/13/2023: Patient doing a lot better Seems to be more interactive No falls No pain We will monitor bowel function Review of Systems General: Fatigue, Malaise Objective Exam Vital Signs Vital Signs Date Time Temp Pulse Resp B/P (MAP) Pulse Ox O2 Delivery O2 Flow Rate FiO2 05/17/23 22:27 36.1 104 20 92/51 (65) 100 Room Air Capillary Refill : General Appearance: WD/WN, Anxious, Chronically ill, Thin HEENT: PERRL/EOMI, Normal ENT Inspection, Pharynx Normal Neck: Full Range of Motion, Normal Inspection, Non Tender, Supple, Carotid Bruit Respiratory: Chest Non Tender, Lungs Clear, Normal Breath Sounds, No Accessory Muscle Use, No Respiratory Distress Cardiovascular: Regular Rate, Rhythm, No Edema, No Gallop, No JVD, No Murmur, Normal Peripheral Pulses Gastrointestinal: Normal Bowel Sounds, No Organomegaly, No Pulsatile Mass, Non Tender, Soft Back: Normal Inspection, No CVA Tenderness, No Vertebral Tenderness Extremity: Normal Capillary Refill, Normal Inspection, Normal Range of Motion, Non Tender, No Calf Tenderness, No Pedal Edema Neurologic/Psychiatric: 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 FIM Transfers Therapy Code Descriptions/Definitions Functional [place] Measure: 0=Not Assessed/NA 4=Minimal Assistance 1=Total Assistance 5=Supervision or Setup 2=Maximal Assistance 6=Modified [place] 3=Moderate Assistance 7=Complete IndependenceSCALE: Activities may be completed with or without assistive devices. 9-Tguaxcyvel-rwsupdw completes the activity by him/herself with no assistance from a helper. 5-Set-up or Clean-up Assistance-helper sets up or cleans up; patient completes activity. [place] assists only prior to or following the activity. 4-Supervision or Touching Assistance-helper provides verbal cues and/or touching/steadying and/or contact guard assistance as patient completes activity. Assistance may be provided throughout the activity or intermittently. 3-Partial/Moderate Assistance-helper does LESS THAN HALF the effort. [place] lifts, holds or supports trunk or limbs, but provides less than half the effort. 2-Substantial/Maximal Assistance-helper does MORE THAN HALF the effort. [place] lifts or holds trunk or limbs and provides more than half the effort. 9-Hhoduuzmy-zbndkk does ALL the effort. Patient does none of the effort to complete the activity. Or, the assistance of 2 or more helpers is required for the patient to complete the activity. If activity was not attempted, code reason: 7-Patient Refused. 9-Not Applicable-not attempted and the patient did not perform the activity before the current illness, exacerbation or injury. 10-Not Attempted due to Environmental Limitations-(lack of equipment, weather restraints, etc.). 88-Not Attempted due to Medical Conditions or Safety Concerns. Roll Left to Right (QC): 4 (SBA ) Sit to Lying (QC): 4 (SBA ) Sit to Stand (QC): 6 Chair/Fyq-to-Gidhz Xfer(QC): 4 (CGA ) Car Transfer (QC): 4 (CGA ) Gait Training Does the Patient Walk?: Yes Distance: 300, 80 Walk 10 feet (QC): 4 Walk 50 ft with 2 Turns(QC): 4 Walk 150 ft (QC): 4 Walking 10ft/uneven surface-QC: 3 (Min A for balance ) Gait Persons Needed: 1 Gait Assistive Device: FWW Wheelchair Training Does the Pt Use a Wheelchair?: No Wheel 50 ft with 2 turns (QC): 9 Wheel 150 ft (QC): 9 Type of Wheelchair: N/A Stair Training Stair Training: Handrails/: 2 handrails #of Steps: 12 1 Step (curb) (QC): 5 4 Steps (QC): 5 12 Steps (QC): 5 Stairs: Pattern: Reciprocal Balance Picking up an Object (QC): 3 (Min A for balance ) ADL-Treatment Eating (QC): 5 Oral Hygiene (QC): 5 Shower/Bathe Self (QC): 4 Upper Body Dressing (QC): 5 Lower Body Dressing (QC): 4 On/Off Footwear (QC): 5 Toileting Hygiene (QC): 4 Toilet Transfer (QC): 4 Assessment/Plan Assessment and Plan Assess & Plan/Chief Complaint Assessment: Fall with subdural hematomas Seizure disorder Intellectual delay Tachycardia Anxiety Malnutrition Plan: Home meds Supportive care Check labs in morning PT and OT 05/13/2023: Supportive care Monitor closely 05/14/2023: Supportive group home meds 05/15/2023: Improved 05/16/2023: Monitor closely Check labs in am 05/17/2023: Monitor closely DC tomorrow (1) Subdural hematoma ERNST PAYTNO DO May 17, 2023 05:13
[2023-05-17 05:59] LABS: BASOPHILS # (AUTO) 0.1 10^3/uL (0.0-0.1); BASOPHILS % (AUTO) 1 % (0-10); EOSINOPHILS # (AUTO) 0.1 10^3/uL (0.0-0.3); EOSINOPHILS % (AUTO) 1 % (0-10); HEMATOCRIT 38 % (35-52); HEMOGLOBIN 11.9 g/dL (11.5-16.0); LYMPHOCYTES # (AUTO) 2.1 10^3/uL (1.0-4.0); LYMPHOCYTES % (AUTO) 27 % (12-44); MEAN CORPUSCULAR HEMOGLOBIN 33 pg (25-34); MEAN CORPUSCULAR HGB CONC 32 g/dL (32-36); MEAN CORPUSCULAR VOLUME 103 fL (80-99); MEAN PLATELET VOLUME 8.9 fL (9.0-12.2); MONOCYTES # (AUTO) 0.5 10^3/uL (0.0-1.0); MONOCYTES % (AUTO) 7 % (0-12); NEUTROPHILS % (AUTO) 64 % (42-75); PLATELET COUNT 237 10^3/uL (130-400); WHITE BLOOD COUNT 7.8 10^3/uL (4.3-11.0)
[2023-05-17] MEDS: THERAPEUTIC MULTIVITAMIN W/MINERALS TABLET PO SCH (06:22)
[2023-05-17] MEDS: CALCIUM CARBONATE 600 MG +VITAMIN D TABLET PO SCH (06:22)
[2023-05-17 06:34] LABS: ALBUMIN 3.1 GM/DL (3.2-4.5); BILIRUBIN,TOTAL 0.3 MG/DL (0.1-1.0); CALCIUM 8.8 MG/DL (8.5-10.1); CREATININE SERUM 1.12 MG/DL (0.60-1.30); POTASSIUM 4.7 MMOL/L (3.6-5.0); TOTAL PROTEIN 5.7 GM/DL (6.4-8.2)
[2023-05-17 08:00] VITALS: BP 135/91
[2023-05-17] MEDS: lamoTRIgine 25 MG TABLET PO SCH ×2 (08:30→21:55)
[2023-05-17] MEDS: LACTOBACILLUS ACIDOPHILUS (PROBIOTIC) CAPSULE PO SCH (08:30)
[2023-05-17] MEDS: meTOprolol TARTRATE (IR) 50 MG TABLET PO SCH ×2 (08:30→21:50)
[2023-05-17] MEDS: CITALOPRAM 20 MG TABLET PO SCH (08:30)
[2023-05-17] MEDS: toPIRamate 100 MG (TOPAMAX) TAB PO SCH ×2 (08:30→21:55)
[2023-05-17] MEDS: cloNIDine 0.1 MG TABLET PO SCH ×2 (08:30→21:50)
[2023-05-17] MEDS: cloZAPine 100 MG TABLET PO SCH ×2 (08:32→21:55)
--- NOTE | 2023-05-17 08:57 | Speech Therapy Daily Note ---
Speech Daily Progress Note Subjective Date Seen by Provider: May 17, 2023 Time Seen by Provider: 08:00 The pt was awake and alert. Nsg staff reported increase in stimulation behaviors, e.g. hitting her head. Not observed in session. Objective The pt ate breakfast meal with smaller bite size and minimally slower rate. She made requests for more syrup, more Sprite, and juice, as well as verbal requests to open items on her tray. She followed one-step directions to "nut picker the ___," or "give me the ___" with 75% accuracy. When given a choice, the pt consistently repeated the full question, then stated her one-word preference. Yes/no questions were answered with improved consistency, again with full repetition of the question followed by her one-word yes or no answer. The pt was able to draw squiggle line and [place] given models and cues before returning to perseverative writing of her name. Assessment Assessment Current Status: Good Progress Treatment Plan Continue Plan of Care Speech Snf Goals Snf Goals 1. The pt will tolerate regular diet with slowed rate of eating with occasional reminders. 2. The pt will provide clear y/n response to personal care questions. 3. The pt will increase appropriate verbalizations during tasks. Speech-Plan Treatment Plan Speech Therapy Treatment Plan: Continue Plan of Care Treatment Duration: May 13, 2023 Frequency: At least 5 of 7 days/Wk (IRF) Estimated Hrs Per Day: Other (45 min/day) Rehab Potential: Good Discharge Recommendations Other, See Comments (return to [facility]) Time Speech Therapy Time In: 08:00 Speech Therapy Time Out: 08:45 DATE: May 17, 2023 Total Billed Time: 45 Billed Treatment Time 1 DYST (30 min) 1 SLTS (15 min) EREN WOMACK May 17, 2023 08:56
[2023-05-17] MEDS: DOCUSATE SODIUM 100 MG CAPSULE PO SCH ×2 (10:39→21:50)
[2023-05-17] MEDS: SENNA W/DOCUSATE TABLET PO SCH ×2 (10:40→21:50)
--- NOTE | 2023-05-17 12:24 | Physical Therapy Daily Note ---
PT Daily Note-Current Subjective Pt asleep in bed upon arrival. Pt awakens and agrees to PT. Pain Location: No Pain Reported Section J - Health Conditions 1. Rarely or not at all 2. Occasionally 3. Frequently 4. Almost constantly 8. Unable to answer Pain Effect on Sleep: 2 Pain Interference with Therapy: 2 Pain Interference w/Day-to-Day: 2 Mental Status Patient Orientation: Person, MR, [place]umbles Transfers SCALE: Activities may be completed with or without assistive devices. 4-Zxsfqftuis-cgjhesc completes the activity by him/herself with no assistance from a helper. 5-Set-up or Clean-up Assistance-helper sets up or cleans up; patient completes activity. [place] assists only prior to or following the activity. 4-Supervision or Touching Assistance-helper provides verbal cues and/or touching/steadying and/or contact guard assistance as patient completes activity. Assistance may be provided throughout the activity or intermittently. 3-Partial/Moderate Assistance-helper does LESS THAN HALF the effort. [place] lifts, holds or supports trunk or limbs, but provides less than half the effort. 2-Substantial/Maximal Assistance-helper does MORE THAN HALF the effort. [place] lifts or holds trunk or limbs and provides more than half the effort. 7-Vithtsndb-xjmdyj does ALL the effort. Patient does none of the effort to complete the activity. Or, the assistance of 2 or more helpers is required for the patient to complete the activity. If activity was not attempted, code reason: 7-Patient Refused. 9-Not Applicable-not attempted and the patient did not perform the activity before the current illness, exacerbation or injury. 10-Not Attempted due to Environmental Limitations-(lack of equipment, weather restraints, etc.). 88-Not Attempted due to Medical Conditions or Safety Concerns. Roll Left & Right (QC): 6 Sit to Lying (QC): 6 Lying to Sitting/Side of Bed(Q: 6 Sit to Stand (QC): 6 Chair/Umt-ok-Ektht Xfer(QC): 6 Toilet Transfer (QC): 6 Car Transfer (QC): 6 Weight Bearing Right Lower Extremity: Right Full Weight Bearing Left Lower Extremity: Left Full Weight Bearing Gait Training Does the Patient Walk?: Yes Distance: 350' Walk 10 feet (QC): 6 Walk 50 ft with 2 Turns(QC): 6 Walk 150 ft (QC): 5 Walking 10ft/uneven surface-QC: 5 Gait Assistive Device: None Wheelchair Training Does the Pt Use a Wheelchair?: No Stair Training Stair Training: Handrails/: 2 handrails #of Steps: 12 1 Step (curb) (QC): 6 4 Steps (QC): 6 12 Steps (QC): 6 Stairs: Pattern: Reciprocal Balance Picking up an Object (QC): 6 Treatments Pt completes QC scoring items listed above before returning to room to rest in recliner. All needs met, call light in hand. Assessment Current Status: Good Progress Pt is impulsive at times and there will be safety concerns due to baseline. Pt has improved but is back to or near baseline. PT Jail Goals Jail Goals PT Jail Goals Time Frame: May 26, 2023 Roll Left & Right (QC): 6 (Pt will be Mod I with bed mobility tasks and functional transfers. ) Sit to Lying (QC): 6 (Pt will be Mod I with bed mobility tasks and functional transfers. ) Lying-Sitting on Side/Bed(QC): 6 (Pt will be Mod I with bed mobility tasks and functional transfers. ) Sit to Stand (QC): 6 (Pt will be Mod I with bed mobility tasks and functional transfers. ) Chair/Cou-kw-Hliiw Xfer(QC): 6 (Pt will be Mod I with bed mobility tasks and functional transfers. ) Toilet Transfer (QC): 6 (Pt will be Mod I with bed mobility tasks and functional transfers. ) Car Transfer (QC): 6 (Pt will be Mod I with bed mobility tasks and functional transfers. ) Does the Patient Walk: Yes Walk 10 feet (QC): 4 (Pt will be SBA/CGA for walking. ) Walk 50ft with 2 Turns (QC): 4 (Pt will be SBA/CGA for walking. ) Walk 150 ft (QC): 4 (Pt will be SBA/CGA for walking. ) Walking 10ft on Uneven Surface: 4 (Pt will be SBA/CGA for walking. ) 1 Step (curb) (QC): 4 (Pt will be SBA/CGA for steps ) 4 Steps (QC): 4 (Pt will be SBA/CGA for steps ) 12 Steps (QC): 4 (Pt will be SBA/CGA for steps ) Picking up an Object (QC): 4 (Pt will be SBA/CGA for picking up an object ) Does the Pt use WC or Scooter?: No Wheel 50 feet with 2 turns (QC: 9 Type: N/A Wheel 150 feet: 9 Type: N/A PT Plan Problem List Problem List: Safety Treatment/Plan Treatment Plan: Continue Plan of Care Treatment Plan: Bed Mobility, Education, Functional Activity Stefania, Functional Strength, Group Therapy, Gait, Safety, Therapeutic Exercise, Transfers Treatment Duration: May 26, 2023 Frequency: At least 5 of 7 days/Wk (IRF) Estimated Hrs Per Day: Other (75 min/day ) Patient and/or Family Agrees t: Yes Time Time In: 1000 Time Out: 1045 DATE: May 17, 2023 Total Billed Treatment Time: 45 Total Billed Treatment 1, FA x2 (30m) & GT (15m) FAROOQ BECERRA LD TEACHER May 17, 2023 12:24
--- NOTE | 2023-05-17 12:26 | Occupational Ther Daily Note ---
OT Current Status-Daily Note Subjective Pt dozing in chair, difficult to wake. Pt requires more encouragement today to participate in OT session. Pt does appear more frustrated today. Mental Status/Objective Patient Orientation: Person, Place, Time, Situation ADL-Treatment Encouragement to participate in ADLs. Set up for oral care. Supervision for eating due to safety with how fast pts eats meals, choking hazard. Set up for UBD. Set up for LBD. Independent for toileting. Max encouragement for pt to complete sponge bath to completion, pt requires assist for thorough cleansing, pt only swipes at area. Therapy Code Descriptions/Definitions Functional [place] Measure: 0=Not Assessed/NA 4=Minimal Assistance 1=Total Assistance 5=Supervision or Setup 2=Maximal Assistance 6=Modified [place] 3=Moderate Assistance 7=Complete IndependenceSCALE: Activities may be completed with or without assistive devices. 1-Vyvtnrqquw-fpbyyzl completes the activity by him/herself with no assistance from a helper. 5-Set-up or Clean-up Assistance-helper sets up or cleans up; patient completes activity. [place] assists only prior to or following the activity. 4-Supervision or Touching Assistance-helper provides verbal cues and/or touching/steadying and/or contact guard assistance as patient completes activity. Assistance may be provided throughout the activity or intermittently. 3-Partial/Moderate Assistance-helper does LESS THAN HALF the effort. [place] lifts, holds or supports trunk or limbs, but provides less than half the effort. 2-Substantial/Maximal Assistance-helper does MORE THAN HALF the effort. [place] lifts or holds trunk or limbs and provides more than half the effort. 8-Yskxdqhzf-bqdsir does ALL the effort. Patient does none of the effort to complete the activity. Or, the assistance of 2 or more helpers is required for the patient to complete the activity. If activity was not attempted, code reason: 7-Patient Refused. 9-Not Applicable-not attempted and the patient did not perform the activity before the current illness, exacerbation or injury. 10-Not Attempted due to Environmental Limitations-(lack of equipment, weather restraints, etc.). 88-Not Attempted due to Medical Conditions or Safety Concerns. Eating (QC): 4 Oral Hygiene (QC): 5 Shower/Bathe Self (QC): 3 Upper Body Dressing (QC): 5 Lower Body Dressing (QC): 5 On/Off Footwear: 5 Toileting Hygiene (QC): 6 Toilet Transfer (QC): 6 BIMS CAM BIMS Expression of Ideas and Wants: Difficulty Understanding Verbal Content: Sometimes Understands (will follow one step directions) Notes: Pt would not repeat or acknowledge questions. CAM Mental Status Change/Baseline: 0 Inattention: 1 Disorganized thinkin Altered level of consciousness: 0 OT First Crusher Goals First Crusher Goals Time Frame: May 28, 2023 Acute change in mental status: 1 Inattention: 1 Disorganized thinkin Altered level of consciousness: 0 Eating (QC): 6 (not met) Oral Hygiene (QC): 4 (met) Toileting Hygiene (QC): 4 (met) Shower/Bathe Self (QC): 4 (not met) Upper Body Dressing (QC): 4 (met) Lower Body Dressing (QC): 4 On/Off Footwear (QC): 4 (met) Additional Goals: 1-Demonstrate ADL Tasks, 2-Verbalize Understanding, 3- ImproveStrength/Stefania 1=Demonstrate adherence to instructed precautions during ADL tasks. 2=Patient will verbalize/demonstrate understanding of assistive d evices/modifications for ADL. 3=Patient will improve strength/tolerance for activity to enable patient to perform ADL's. OT Education/Plan Problem List/Assessment Assessment: Decreased Activ Tolerance, Impaired Cognition, Impaired Self-Care Skills Discharge Recommendations Plan/Recommendations: Continue POC Treatment Plan/Plan of Care Patient would benefit from OT for education, treatment and training to promote independence in ADL's, mobility, safety and/or upper extremity function for ADL's. Plan of Care: ADL Retraining, Functional Mobility, Group Exercise/Act as Ind, UE Funct Exercise/Act Treatment Duration: May 28, 2023 Frequency: At least 5 of 7 days/Wk (IRF) Estimated Hrs Per Day: Other (75 mins per day) Agreement: Yes Rehab Potential: Good Time Start Time: 11:15 Stop Time: 12:00 DATE: May 17, 2023 Total Time Billed (hr/min): 45 Billed Treatment Time 1 visit-ADL 3 (45 min) CHANDLER DENTON May 17, 2023 12:26
--- NOTE | 2023-05-17 14:42 | Occupational Ther Daily Note ---
OT Current Status-Daily Note Subjective Pt sleeping in bed. Difficult to wake then required encouragement to participate with therapy. OT/PT co-treat([id number]), skills of 2 clinicians required to decrease fall risk, increase safety awareness and skilled cues to direct ambulation and ADLs. PT focusing on ambulation while OT focusing on ADLs and functional mobility. Mental Status/Objective Patient Orientation: Person, Place, Time, Situation ADL-Treatment Pt ambulated into bathroom and completed toilet transfer with supervision. Independent with toileting though continues to be inefficient with cleansing. Pt then ambulated around ARU and completed stairs, see PT note for assist level. After therapy, pt sitting in recliner with call light/phone in reach. All needs met in room. Therapy Code Descriptions/Definitions Functional [place] Measure: 0=Not Assessed/NA 4=Minimal Assistance 1=Total Assistance 5=Supervision or Setup 2=Maximal Assistance 6=Modified [place] 3=Moderate Assistance 7=Complete IndependenceSCALE: Activities may be completed with or without assistive devices. 3-Hasfinibbu-zhjjlnm completes the activity by him/herself with no assistance from a helper. 5-Set-up or Clean-up Assistance-helper sets up or cleans up; patient completes activity. [place] assists only prior to or following the activity. 4-Supervision or Touching Assistance-helper provides verbal cues and/or touching/steadying and/or contact guard assistance as patient completes activity. Assistance may be provided throughout the activity or intermittently. 3-Partial/Moderate Assistance-helper does LESS THAN HALF the effort. [place] lifts, holds or supports trunk or limbs, but provides less than half the effort. 2-Substantial/Maximal Assistance-helper does MORE THAN HALF the effort. [place] lifts or holds trunk or limbs and provides more than half the effort. 9-Exkloqvsd-azghkz does ALL the effort. Patient does none of the effort to complete the activity. Or, the assistance of 2 or more helpers is required for the patient to complete the activity. If activity was not attempted, code reason: 7-Patient Refused. 9-Not Applicable-not attempted and the patient did not perform the activity before the current illness, exacerbation or injury. 10-Not Attempted due to Environmental Limitations-(lack of equipment, weather restraints, etc.). 88-Not Attempted due to Medical Conditions or Safety Concerns. OT Title Supervisor Goals Title Supervisor Goals Time Frame: May 28, 2023 Acute change in mental status: 0 Inattention: 1 Disorganized thinkin Altered level of consciousness: 0 Eating (QC): 6 (not met) Oral Hygiene (QC): 4 (met) Toileting Hygiene (QC): 4 (met) Shower/Bathe Self (QC): 4 (not met) Upper Body Dressing (QC): 4 (met) Lower Body Dressing (QC): 4 On/Off Footwear (QC): 4 (met) Additional Goals: 1-Demonstrate ADL Tasks, 2-Verbalize Understanding, 3- ImproveStrength/Stefania 1=Demonstrate adherence to instructed precautions during ADL tasks. 2=Patient will verbalize/demonstrate understanding of assistive devices/modifications for ADL. 3=Patient will improve strength/tolerance for activity to enable patient to perform ADL's. OT Education/Plan Problem List/Assessment Assessment: Decreased Activ Tolerance, Decreased Safety Aware, Impaired Cognition, Impaired Self-Care Skills Discharge Recommendations Plan/Recommendations: Continue POC Treatment Plan/Plan of Care Patient would benefit from OT for education, treatment and training to promote independence in ADL's, mobility, safety and/or upper extremity function for ADL's. Plan of Care: ADL Retraining, Functional Mobility, Group Exercise/Act as Ind, UE Funct Exercise/Act Treatment Duration: May 28, 2023 Frequency: At least 5 of 7 days/Wk (IRF) Estimated Hrs Per Day: Other (75 mins per day) Agreement: Yes Rehab Potential: Good Time Start Time: 13:30 Stop Time: 14:00 DATE: May 17, 2023 Total Time Billed (hr/min): 30 Billed Treatment Time 1 visit-ADL 1 (15 min) FA 1 (15 min) co-treat with PT 30 min CHANDLER DENTON May 17, 2023 14:42
--- NOTE | 2023-05-17 15:54 | Physical Therapy Daily Note ---
PT Daily Note-Current Subjective OT/PT co-treat([id number]), skills of 2 clinicians required to decrease fall risk, increase safety awareness and skilled cues to direct ambulation and ADLs. PT focusing on ambulation while OT focusing on ADLs and functional mobility. Pain Location: No Pain Reported Section J - Health Conditions 1. Rarely or not at all 2. Occasionally 3. Frequently 4. Almost constantly 8. Unable to answer Pain Effect on Sleep: 2 Pain Interference with Therapy: 2 Pain Interference w/Day-to-Day: 2 Mental Status Patient Orientation: Person, MR, [place] Transfers SCALE: Activities may be completed with or without assistive devices. 1-Qafamtkfjc-ahmwtbr completes the activity by him/herself with no assistance from a helper. 5-Set-up or Clean-up Assistance-helper sets up or cleans up; patient completes activity. [place] assists only prior to or following the activity. 4-Supervision or Touching Assistance-helper provides verbal cues and/or touching/steadying and/or contact guard assistance as patient completes activity. Assistance may be provided throughout the activity or intermittently. 3-Partial/Moderate Assistance-helper does LESS THAN HALF the effort. [place] lifts, holds or supports trunk or limbs, but provides less than half the effort. 2-Substantial/Maximal Assistance-helper does MORE THAN HALF the effort. [place] lifts or holds trunk or limbs and provides more than half the effort. 7-Vhqeyrfyp-tnwcxi does ALL the effort. Patient does none of the effort to complete the activity. Or, the assistance of 2 or more helpers is required for the patient to complete the activity. If activity was not attempted, code reason: 7-Patient Refused. 9-Not Applicable-not attempted and the patient did not perform the activity before the current illness, exacerbation or injury. 10-Not Attempted due to Environmental Limitations-(lack of equipment, weather restraints, etc.). 88-Not Attempted due to Medical Conditions or Safety Concerns. Lying to Sitting/Side of Bed(Q: 5 Sit to Stand (QC): 5 Toilet Transfer (QC): 5 Weight Bearing Right Lower Extremity: Right Full Weight Bearing Left Lower Extremity: Left Full Weight Bearing Gait Training Does the Patient Walk?: Yes Distance: 250' Walk 10 feet (QC): 5 Walk 50 ft with 2 Turns(QC): 5 Walk 150 ft (QC): 5 Gait Persons Needed: 1 Gait Assistive Device: None Wheelchair Training Does the Pt Use a Wheelchair?: No Treatments Pt ambulated into bathroom and completed toilet transfer with supervision. Independent with toileting though continues to be inefficient with cleansing. Pt then ambulated around ARU and completed stairs. After therapy, pt sitting in recliner with call light/phone in reach. All needs met in room. Assessment Current Status: Good Progress Pt continues to remain impulsive and wants to d/c but won't until tomorrow. PT Penitentiary Goals Penitentiary Goals PT Lawn Sprinkler Installer Goals Time Frame: May 26, 2023 Roll Left & Right (QC): 6 (Pt will be Mod I with bed mobility tasks and functional transfers. ) Sit to Lying (QC): 6 (Pt will be Mod I with bed mobility tasks and functional transfers. ) Lying-Sitting on Side/Bed(QC): 6 (Pt will be Mod I with bed mobility tasks and functional transfers. ) Sit to Stand (QC): 6 (Pt will be Mod I with bed mobility tasks and functional transfers. ) Chair/Aqi-ap-Fztpr Xfer(QC): 6 (Pt will be Mod I with bed mobility tasks and functional transfers. ) Toilet Transfer (QC): 6 (Pt will be Mod I with bed mobility tasks and functional transfers. ) Car Transfer (QC): 6 (Pt will be Mod I with bed mobility tasks and functional transfers. ) Does the Patient Walk: Yes Walk 10 feet (QC): 4 (Pt will be SBA/CGA for walking. ) Walk 50ft with 2 Turns (QC): 4 (Pt will be SBA/CGA for walking. ) Walk 150 ft (QC): 4 (Pt will be SBA/CGA for walking. ) Walking 10ft on Uneven Surface: 4 (Pt will be SBA/CGA for walking. ) 1 Step (curb) (QC): 4 (Pt will be SBA/CGA for steps ) 4 Steps (QC): 4 (Pt will be SBA/CGA for steps ) 12 Steps (QC): 4 (Pt will be SBA/CGA for steps ) Picking up an Object (QC): 4 (Pt will be SBA/CGA for picking up an object ) Does the Pt use WC or Scooter?: No Wheel 50 feet with 2 turns (QC: 9 Type: N/A Wheel 150 feet: 9 Type: N/A PT Plan Problem List Problem List: Safety Treatment/Plan Treatment Plan: Continue Plan of Care Treatment Plan: Bed Mobility, Education, Functional Activity Stefania, Functional Strength, Group Therapy, Gait, Safety, Therapeutic Exercise, Transfers Treatment Duration: May 26, 2023 Frequency: At least 5 of 7 days/Wk (IRF) Estimated Hrs Per Day: Other (75 min/day ) Patient and/or Family Agrees t: Yes Safety Risks/Education Patient Education: Safety Issues Teaching Recipient: Patient Teaching Methods: Discussion Response to Teaching: Reinforcement Needed Time Time In: 1330 Time Out: 1400 DATE: May 17, 2023 Total Billed Treatment Time: 30 Total Billed Treatment 1, GT (15m) & FA (15m) FAROOQ BECERRA CONTINUOUS WELD PIPE MILL SUPERVISOR May 17, 2023 15:54
[2023-05-17 21:24] VITALS: BP 102/58
[2023-05-17 22:27] VITALS: BP 92/51
[2023-05-18] MEDS ORDERED: LAMO25TA8 PO (04:55)
--- NOTE | 2023-05-18 04:56 | Discharge Summary ---
Diagnosis/Chief Complaint Date of Admission May 12, 2023 at 12:00 Date of Discharge Discharge Date: May 18, 2023 Discharge Diagnosis Assessment: Fall with subdural hematomas Seizure disorder Intellectual delay Tachycardia Anxiety Malnutrition Plan: Home meds Supportive care Check labs in morning PT and OT 05/13/2023: Supportive care Monitor closely 05/14/2023: Supportive senior living meds 05/15/2023: Improved 05/16/2023: Monitor closely Check labs in am 05/17/2023: Monitor closely DC tomorrow (1) Subdural hematoma Discharge Summary Discharge Physical Examination Allergies: Coded Allergies: haloperidol (Verified Allergy, Unknown, Unknown , Active , ,, 05/12/23) Vitals & I&Os Vital Signs Date Time Temp Pulse Resp B/P (MAP) Pulse Ox O2 Delivery O2 Flow Rate FiO2 05/18/23 11:45 36.2 91 17 114/66 95 Room Air General Appearance: Alert, Oriented X3, Cooperative Respiratory: Clear to Auscultation Cardiovascular: Regular Rate Psych/Mental Status: Mental Status NL Hospital Course Was the Problem List Reviewed?: Yes Uneventful hospital course after she was admitted following a fall with subdural hematomas. She responded to therapy and was able to participate and get back to her baseline. She continued to be impulsive but she was able to be redirected and do well. Labs and vitals remained stable and she was deemed stable for DC. Labs (last 24 hrs) Laboratory Tests 05/12/23 16:28: White Blood Count 6.6, Red Blood Count 3.53L, Hemoglobin 11.5, Hematocrit 35, Mean Corpuscular Volume 99, Mean Corpuscular Hemoglobin 33, Mean Corpuscular Hemoglobin Concent 33, Red Cell Distribution Width 12.7, Platelet Count 230, Mean Platelet Volume 9.2, Immature Granulocyte % (Auto) 1, Neutrophils (%) (Auto) 64, Lymphocytes (%) (Auto) 23, Monocytes (%) (Auto) 10, Eosinophils (%) (Auto) 1, Basophils (%) (Auto) 1, Neutrophils # (Auto) 4.2, Lymphocytes # (Auto) 1.5, Monocytes # (Auto) 0.7, Eosinophils # (Auto) 0.1, Basophils # (Auto) 0.1, Immature Granulocyte # (Auto) 0.1 05/13/23 05:35: White Blood Count 6.4, Red Blood Count 3.55L, Hemoglobin 11.6, Hematocrit 35, Mean Corpuscular Volume 99, Mean Corpuscular Hemoglobin 33, Mean Corpuscular Hemoglobin Concent 33, Red Cell Distribution Width 12.8, Platelet Count 261, Mean Platelet Volume 9.3, Immature Granulocyte % (Auto) 3, Neutrophils (%) (Auto) 53, Lymphocytes (%) (Auto) 32, Monocytes (%) (Auto) 10, Eosinophils (%) (Auto) 2, Basophils (%) (Auto) 1, Neutrophils # (Auto) 3.4, Lymphocytes # (Auto) 2.1, Monocytes # (Auto) 0.6, Eosinophils # (Auto) 0.1, Basophils # (Auto) 0.0, Immature Granulocyte # (Auto) 0.2H, Sodium Level 141, Potassium Level 3.4L, Chloride Level 114H, Carbon Dioxide Level 19L, Anion Gap 8, Blood Urea Nitrogen 38H, Creatinine 1.08, Estimat Glomerular Filtration Rate 63, BUN/Creatinine Ratio 35, Glucose Level 111H, Calcium Level 8.2L, Corrected Calcium 9.1, Total Bilirubin 0.2, Aspartate Amino Transf (AST/SGOT) 22, Alanine Aminotransferase (ALT/SGPT) 16, Alkaline Phosphatase 105, Total Protein 5.5L, Albumin 2.9L 05/17/23 05:44: White Blood Count 7.8, Red Blood Count 3.65L, Hemoglobin 11.9, Hematocrit 38, Mean Corpuscular Volume 103H, Mean Corpuscular Hemoglobin 33, Mean Corpuscular Hemoglobin Concent 32, Red Cell Distribution Width 13.6, Platelet Count 237, Mean Platelet Volume 8.9L, Immature Granulocyte % (Auto) 1, Neutrophils (%) (Auto) 64, Lymphocytes (%) (Auto) 27, Monocytes (%) (Auto) 7, Eosinophils (%) (Auto) 1, Basophils (%) (Auto) 1, Neutrophils # (Auto) 5.0, Lymphocytes # (Auto) 2.1, Monocytes # (Auto) 0.5, Eosinophils # (Auto) 0.1, Basophils # (Auto) 0.1, Immature Granulocyte # (Auto) 0.1, Sodium Level 145, Potassium Level 4.7, Chloride Level 116H, Carbon Dioxide Level 21, Anion Gap 8, Blood Urea Nitrogen 28H, Creatinine 1.12, Estimat Glomerular Filtration Rate 60, BUN/Creatinine Ratio 25, Glucose Level 95, Calcium Level 8.8, Corrected Calcium 9.5, Total Bilirubin 0.3, Aspartate Amino Transf (AST/SGOT) 25, Alanine Aminotransferase (ALT/SGPT) 23, Alkaline Phosphatase 99, Total Protein 5.7L, Albumin 3.1L Pending Labs Laboratory Tests 05/12/23 16:28: White Blood Count 6.6, Red Blood Count 3.53, Hemoglobin 11.5, Hematocrit 35, Mean Corpuscular Volume 99, Mean Corpuscular Hemoglobin 33, Mean Corpuscular Hemoglobin Concent 33, Red Cell Distribution Width 12.7, Platelet Count 230, Mean Platelet Volume 9.2, Immature Granulocyte % (Auto) 1, Neutrophils (%) (Auto) 64, Lymphocytes (%) (Auto) 23, Monocytes (%) (Auto) 10, Eosinophils (%) (Auto) 1, Basophils (%) (Auto) 1, Neutrophils # (Auto) 4.2, Lymphocytes # (Auto) 1.5, Monocytes # (Auto) 0.7, Eosinophils # (Auto) 0.1, Basophils # (Auto) 0.1, Immature Granulocyte # (Auto) 0.1 05/13/23 05:35: White Blood Count 6.4, Red Blood Count 3.55, Hemoglobin 11.6, Hematocrit 35, Mean Corpuscular Volume 99, Mean Corpuscular Hemoglobin 33, Mean Corpuscular Hemoglobin Concent 33, Red Cell Distribution Width 12.8, Platelet Count 261, Mean Platelet Volume 9.3, Immature Granulocyte % (Auto) 3, Neutrophils (%) (Auto) 53, Lymphocytes (%) (Auto) 32, Monocytes (%) (Auto) 10, Eosinophils (%) (Auto) 2, Basophils (%) (Auto) 1, Neutrophils # (Auto) 3.4, Lymphocytes # (Auto) 2.1, Monocytes # (Auto) 0.6, Eosinophils # (Auto) 0.1, Basophils # (Auto) 0.0, Immature Granulocyte # (Auto) 0.2, Sodium Level 141, Potassium Level 3.4, Chloride Level 114, Carbon Dioxide Level 19, Anion Gap 8, Blood Urea Nitrogen 38, Creatinine 1.08, Estimat Glomerular Filtration Rate 63, BUN/Creatinine Ratio 35, Glucose Level 111, Calcium Level 8.2, Corrected Calcium 9.1, Total Bilirubin 0.2, Aspartate Amino Transf (AST/SGOT) 22, Alanine Aminotransferase (ALT/SGPT) 16, Alkaline Phosphatase 105, Total Protein 5.5, Albumin 2.9 05/17/23 05:44: White Blood Count 7.8, Red Blood Count 3.65, Hemoglobin 11.9, Hematocrit 38, Mean Corpuscular Volume 103, Mean Corpuscular Hemoglobin 33, Mean Corpuscular Hemoglobin Concent 32, Red Cell Distribution Width 13.6, Platelet Count 237, Mean Platelet Volume 8.9, Immature Granulocyte % (Auto) 1, Neutrophils (%) (Auto) 64, Lymphocytes (%) (Auto) 27, Monocytes (%) (Auto) 7, Eosinophils (%) (Auto) 1, Basophils (%) (Auto) 1, Neutrophils # (Auto) 5.0, Lymphocytes # (Auto) 2.1, Monocytes # (Auto) 0.5, Eosinophils # (Auto) 0.1, Basophils # (Auto) 0.1, Immature Granulocyte # (Auto) 0.1, Sodium Level 145, Potassium Level 4.7, Chloride Level 116, Carbon Dioxide Level 21, Anion Gap 8, Blood Urea Nitrogen 28, Creatinine 1.12, Estimat Glomerular Filtration Rate 60, BUN/Creatinine Ratio 25, Glucose Level 95, Calcium Level 8.8, Corrected Calcium 9.5, Total Bilirubin 0.3, Aspartate Amino Transf (AST/SGOT) 25, Alanine Aminotransferase (ALT/SGPT) 23, Alkaline Phosphatase 99, Total Protein 5.7, Albumin 3.1 Discharge Home Medications: Active Scripts Active Lamotrigine 25 Mg Tablet 25 Mg PO BID Reported [place] Carbonate 600 Mg Capsule 600 Mg PO HS Metronidazole 500 Mg Tablet 500 Mg PO BID Megestrol Acetate 400 Mg/10 Ml (40 Mg/Ml) Oral.susp 20 Ml PO DAILY Fiber-Lax (Calcium Polycarbophil) 625 Mg Tablet 1,250 Mg PO BID TAKES 2 (625MG) TABS Escitalopram Oxalate 20 Mg Tablet 20 Mg PO DAILY Milk of Magnesia (Magnesium Hydroxide) 400 Mg/5 Ml Oral.susp 30 Ml PO BID PRN Vraylar (Cariprazine Hydrochloride) 6 Mg Capsule 6 Mg PO DAILY Pindolol 5 Mg Tablet 5 Mg PO BID IF SBP >160 OR <90 OR DBP IS >90 OR <58 THEN HOLD MED AND CONTACT NURSING Cyanocobalamin Injection (Cyanocobalamin) 1,000 Mcg/Ml Inj 1,000 Mcg IM MONTHLY Topiramate 100 Mg Tablet 100 Mg PO BID Daily Freddie (Multivitamin) 1 Each Tablet 1 Each PO DAILY Methimazole 5 Mg Tablet 5 Mg PO Q48H LAST DOSE WAS NOT INDICATED ON THE [facility] DISCHARGE ORDERS Loperamide (Loperamide HCl) 2 Mg Capsule 2-4 Mg PO UD PRN MDD 16MG TAKE 2 CAPS AFTER 1ST LOOSE STOOL THEN 1 CAP AFTER EACH LOOSE STOOL Medroxyprogesterone Acetate 150 Mg/Ml Vial 150 Mg IM EVERY 3 MONTHS Culturelle (Lactobacillus Rhamnosus GG) 10 Billion Cell Capsule 1 Each PO DAILY Clozapine 200 Mg Tablet 200 Mg PO BID Clonidine HCl 0.1 Mg Tablet 0.1 Mg PO BID Clindamycin Phosphate (Clindamycin Phos) 1 % Gel 1 Applic TOP HS Benzonatate 100 Mg Capsule 100 Mg PO TID PRN Tylenol Extra Strength (Acetaminophen) 500 Mg Tablet 500 Mg PO QID PRN Instructions to patient/family Please see electronic discharge instructions given to patient. Diagnosis/Problems Diagnosis/Problems (1) Subdural hematoma Clinical Quality Measures DVT/VTE Risk/Contraindication: Contraindications-Pharm: Other *list below* Other: subdural hematoma ERNST PAYTON DO May 18, 2023 04:56
[2023-05-18] MEDS: THERAPEUTIC MULTIVITAMIN W/MINERALS TABLET PO SCH (06:09)
[2023-05-18] MEDS: CALCIUM CARBONATE 600 MG +VITAMIN D TABLET PO SCH (06:09)
[2023-05-18 08:00] VITALS: BP 114/66
[2023-05-18] MEDS: toPIRamate 100 MG (TOPAMAX) TAB PO SCH (08:54)
[2023-05-18] MEDS: LACTOBACILLUS ACIDOPHILUS (PROBIOTIC) CAPSULE PO SCH (08:54)
[2023-05-18] MEDS: CITALOPRAM 20 MG TABLET PO SCH (08:55)
[2023-05-18] MEDS: cloNIDine 0.1 MG TABLET PO SCH (08:55)
[2023-05-18] MEDS: meTOprolol TARTRATE (IR) 50 MG TABLET PO SCH (08:55)
[2023-05-18] MEDS: lamoTRIgine 25 MG TABLET PO SCH (08:55)
[2023-05-18] MEDS: cloZAPine 100 MG TABLET PO SCH (08:56)
[2023-05-18] MEDS: SENNA W/DOCUSATE TABLET PO SCH (08:58)
[2023-05-18] MEDS: DOCUSATE SODIUM 100 MG CAPSULE PO SCH (08:58)
[2023-05-18 11:45] VITALS: BP 114/66
--- NOTE | 2023-05-18 14:11 | Therapy Team Discharge Summary ---
Therapy Discharge Summary Discharge Recommendations Date of Discharge May 18, 2023 at 11:10 Physical Therapy Roll Left to Right (QC): 6 Sit to Lying (QC): 6 Lying to Sitting/Side of Bed(Q: 5 Sit to Stand (QC): 5 Chair/Oep-jx-Xhsfa Xfer(QC): 6 Toilet Transfer (QC): 4 Car Transfer (QC): 6 Does the Patient Walk: Yes Mode of Locomotion: Walk Anticipated Mode of Locomotion: Walk Walk 10 feet (QC): 5 Walk 50 ft with 2 Turns(QC): 5 Walk 150 ft (QC): 5 Walking 10ft on uneven surface: 5 Distance: 150ft Gait Assistive Device: None Does the Pt Use a Wheelchair: No Wheel 50 ft with 2 turns (QC): 9 Wheel 150 ft (QC): 9 Type of Wheelchair: N/A #of Steps: 12 1 Step (curb) (QC): 6 4 Steps (QC): 6 12 Steps (QC): 6 Balance Sitting Static: Good Balance Sitting Dynamic: Good Balance-Standing Static: Fair Picking up an Object (QC): 6 Occupational Therapy Decreased Activ Tolerance, Decreased Safety Aware, Impaired Cognition, Impaired Self-Care Skills Eating (QC): 4 Oral Hygiene (QC): 5 Shower/Bathe Self (QC): 3 Upper Body Dressing (QC): 5 Lower Body Dressing (QC): 5 On/Off Footwear (QC): 5 Toileting Hygiene (QC): 6 Speech-Language Pathology The pt was seen for speech and swallow treatment. At initial assessment, the pt demonstrated severe impulsivity while eating, with overfilling of mouth and max assist needed to prevent behavior. At time of discharge, the pt was able to eat with supervision only, with adequate oral clearance between each bolus. Verbalizations were increased over stay, with few verbalizations noted on admission. At time of discharge, the pt was able to label objects in environment, make choices between desired items, and answer y/n questions with fair-good clarity. PT Manufacturing Plant Technician Goals Manufacturing Plant Technician Goals PT Nursing Home Goals Time Frame: May 26, 2023 Roll Left to Right (QC): 6 (Pt will be Mod I with bed mobility tasks and functional transfers. ) Sit to Lying (QC): 6 (Pt will be Mod I with bed mobility tasks and functional transfers. ) Lying-Sitting on Side/Bed(QC): 6 (Pt will be Mod I with bed mobility tasks and functional transfers. ) Sit to Stand (QC): 6 (Pt will be Mod I with bed mobility tasks and functional transfers. ) Chair/Xli-gr-Skyvd Xfer(QC): 6 (Pt will be Mod I with bed mobility tasks and functional transfers. ) Toilet/Commode Transfer (QC): 6 (Pt will be Mod I with bed mobility tasks and functional transfers. ) Car Transfer (QC): 6 (Pt will be Mod I with bed mobility tasks and functional transfers. ) Does the Patient Walk: Yes Walk 10 feet (QC): 4 (Pt will be SBA/CGA for walking. ) Walk 10ft-Uneven Surface(QC): 4 (Pt will be SBA/CGA for walking. ) Walk 50ft with 2 Turns (QC): 4 (Pt will be SBA/CGA for walking. ) Walk 150 ft (QC): 4 (Pt will be SBA/CGA for walking. ) Does the Pt use WC or Scooter?: No Wheel 50 feet with 2 turns (QC: 9 Type: N/A Wheel 150 feet: 9 Type: N/A 1 Step (curb) (QC): 4 (Pt will be SBA/CGA for steps ) 4 Steps (QC): 4 (Pt will be SBA/CGA for steps ) 12 Steps (QC): 4 (Pt will be SBA/CGA for steps ) Picking up an Object (QC): 4 (Pt will be SBA/CGA for picking up an object ) OT Nursing Home Goals Manufacturing Plant Technician Goals Time Frame: May 28, 2023 Acute change in mental status: 0 Inattention: 1 Disorganized thinkin Altered level of consciousness: 0 Eating (QC): 6 (not met) Oral Hygiene (QC): 4 (met) Toileting Hygiene (QC): 4 (met) Shower/Bathe Self (QC): 4 (not met) Upper Body Dressing (QC): 4 (met) Lower Body Dressing (QC): 4 On/Off Footwear (QC): 4 (met) Additional Goals: 1-Demonstrate ADL Tasks, 2-Verbalize Understanding, 3- ImproveStrength/Stefania 1=Demonstrate adherence to instructed precautions during ADL tasks. 2=Patient will verbalize/demonstrate understanding of assistive devices/modifications for ADL. 3=Patient will improve strength/tolerance for activity to enable patient to perform ADL's. Speech Manufacturing Plant Technician Goals Nursing Home Goals 1. The pt will tolerate regular diet with slowed rate of eating with occasional reminders. 2. The pt will provide clear y/n response to personal care questions. 3. The pt will increase appropriate verbalizations during tasks. EREN WOMACK May 18, 2023 14:11
--- NOTE | 2023-05-18 14:20 | Therapy Team Discharge Summary ---
Therapy Discharge Summary Discharge Recommendations Date of Discharge May 18, 2023 at 11:10 Physical Therapy Roll Left to Right (QC): 6 Sit to Lying (QC): 6 Lying to Sitting/Side of Bed(Q: 5 Sit to Stand (QC): 5 Chair/Pid-ui-Gkwhd Xfer(QC): 6 Toilet Transfer (QC): 4 Car Transfer (QC): 6 Does the Patient Walk: Yes Mode of Locomotion: Walk Anticipated Mode of Locomotion: Walk Walk 10 feet (QC): 5 Walk 50 ft with 2 Turns(QC): 5 Walk 150 ft (QC): 5 Walking 10ft on uneven surface: 5 Distance: 150ft Gait Assistive Device: None Does the Pt Use a Wheelchair: No Wheel 50 ft with 2 turns (QC): 9 Wheel 150 ft (QC): 9 Type of Wheelchair: N/A #of Steps: 12 1 Step (curb) (QC): 6 4 Steps (QC): 6 12 Steps (QC): 6 Balance Sitting Static: Good Balance Sitting Dynamic: Good Balance-Standing Static: Fair Picking up an Object (QC): 6 Occupational Therapy Pt admitted to [facility] s/p [facility]. At [facility], pt lived at [facility] requiring some assistance with self care tasks. Upon initial evaluation, pt required set up with eating, UBD, and footwear, min A oral care and toileting and CGA LBD and showering. OT tx focused on increasing BUE strength and activity tolerance, and increasing safety and independence with ADLS. Pt made good progress towards goals, attaining LTGs for UBD/LBD, oral care, toileting, and footwear. Pt discharged from facility, returning to [facility] with caregiver assistance, d/c from OT. Decreased Activ Tolerance, Decreased Safety Aware, Impaired Cognition, Impaired Self-Care Skills Eating (QC): 4 Oral Hygiene (QC): 5 Shower/Bathe Self (QC): 3 Upper Body Dressing (QC): 5 Lower Body Dressing (QC): 5 On/Off Footwear (QC): 5 Toileting Hygiene (QC): 6 PT [facility] Goals Documentation Coordinator Goals PT [facility] Goals Time Frame: May 26, 2023 Roll Left to Right (QC): 6 (Pt will be Mod I with bed mobility tasks and functional transfers. ) Sit to Lying (QC): 6 (Pt will be Mod I with bed mobility tasks and functional transfers. ) Lying-Sitting on Side/Bed(QC): 6 (Pt will be Mod I with bed mobility tasks and functional transfers. ) Sit to Stand (QC): 6 (Pt will be Mod I with bed mobility tasks and functional transfers. ) Chair/Hyt-oy-Olmbp Xfer(QC): 6 (Pt will be Mod I with bed mobility tasks and functional transfers. ) Toilet/Commode Transfer (QC): 6 (Pt will be Mod I with bed mobility tasks and f unctional transfers. ) Car Transfer (QC): 6 (Pt will be Mod I with bed mobility tasks and functional transfers. ) Does the Patient Walk: Yes Walk 10 feet (QC): 4 (Pt will be SBA/CGA for walking. ) Walk 10ft-Uneven Surface(QC): 4 (Pt will be SBA/CGA for walking. ) Walk 50ft with 2 Turns (QC): 4 (Pt will be SBA/CGA for walking. ) Walk 150 ft (QC): 4 (Pt will be SBA/CGA for walking. ) Does the Pt use WC or Scooter?: No Wheel 50 feet with 2 turns (QC: 9 Type: N/A Wheel 150 feet: 9 Type: N/A 1 Step (curb) (QC): 4 (Pt will be SBA/CGA for steps ) 4 Steps (QC): 4 (Pt will be SBA/CGA for steps ) 12 Steps (QC): 4 (Pt will be SBA/CGA for steps ) Picking up an Object (QC): 4 (Pt will be SBA/CGA for picking up an object ) OT Documentation Coordinator Goals [facility] Goals Time Frame: May 28, 2023 Acute change in mental status: 0 Inattention: 1 Disorganized thinkin Altered level of consciousness: 0 Eating (QC): 6 (not met) Oral Hygiene (QC): 4 (met) Toileting Hygiene (QC): 4 (met) Shower/Bathe Self (QC): 4 (not met) Upper Body Dressing (QC): 4 (met) Lower Body Dressing (QC): 4 (met) On/Off Footwear (QC): 4 (met) Additional Goals: 1-Demonstrate ADL Tasks, 2-Verbalize Understanding, 3- ImproveStrength/Stefania 1=Demonstrate adherence to instructed precautions during ADL tasks. 2=Patient will verbalize/demonstrate understanding of assistive devices/modifications for ADL. 3=Patient will improve strength/tolerance for activity to enable patient to perform ADL's. Speech [facility] Goals [facility] Goals 1. The pt will tolerate regular diet with slowed rate of eating with occasional reminders. 2. The pt will provide clear y/n response to personal care questions. 3. The pt will increase appropriate verbalizations during tasks. KAITLYN WASHINGTON OT May 18, 2023 14:20
--- NOTE | 2023-05-18 14:23 | Therapy Team Discharge Summary ---
Therapy Discharge Summary Discharge Recommendations Date of Discharge May 18, 2023 at 11:10 Therapy D/C Recommendations: Other, See Comments (Usp ) Physical Therapy Pt is a 48 y/o female who was transferred to [facility] from [facility] after fall 05/05/23. CT significant for 2 SDH. no surgical intervention; Leukocytosis 2/2 dehydration. Transfer to ARU 05/12/23. Per chart review, pt was independent with ADLs and functional mobility prior to ~2 months ago. In the last 2 months, facility reports physical and cognitive decline. Upon PT eval, pt was SBA for bed mobility, CGA for transfers, Min A for walking and stairs, secondary to poor balance. PT focused on B LE strength, endurance, walking, balance/safety, functional mobility, and overall Ind. Pt progressed well with PT and met all set goals. Pt was discharged from ARU to [facility] on 05/18/23 with outpatient PT; D/C from PT at this time. Roll Left to Right (QC): 6 Sit to Lying (QC): 6 Lying to Sitting/Side of Bed(Q: 6 Sit to Stand (QC): 6 Chair/Lsk-eb-Mfwmt Xfer(QC): 6 Toilet Transfer (QC): 6 Car Transfer (QC): 6 Does the Patient Walk: Yes Mode of Locomotion: Walk Anticipated Mode of Locomotion: Walk Walk 10 feet (QC): 6 Walk 50 ft with 2 Turns(QC): 6 Walk 150 ft (QC): 5 Walking 10ft on uneven surface: 5 Distance: 350ft Gait Assistive Device: None Does the Pt Use a Wheelchair: No Wheel 50 ft with 2 turns (QC): 9 Wheel 150 ft (QC): 9 Type of Wheelchair: N/A #of Steps: 12 1 Step (curb) (QC): 6 4 Steps (QC): 6 12 Steps (QC): 6 Balance Sitting Static: Good Balance Sitting Dynamic: Good Balance-Standing Static: Fair Picking up an Object (QC): 6 Occupational Therapy Decreased Activ Tolerance, Decreased Safety Aware, Impaired Cognition, Impaired Self-Care Skills Eating (QC): 4 Oral Hygiene (QC): 5 Shower/Bathe Self (QC): 3 Upper Body Dressing (QC): 5 Lower Body Dressing (QC): 5 On/Off Footwear (QC): 5 Toileting Hygiene (QC): 6 PT Spot Welder Goals [facility]way Goals PT [facility] Goals Time Frame: May 26, 2023 Roll Left to Right (QC): 6 (Pt will be Mod I with bed mobility tasks and functional transfers. ) Sit to Lying (QC): 6 (Pt will be Mod I with bed mobility tasks and functional transfers. ) Lying-Sitting on Side/Bed(QC): 6 (Pt will be Mod I with bed mobility tasks and functional transfers. ) Sit to Stand (QC): 6 (Pt will be Mod I with bed mobility tasks and functional transfers. ) Chair/Aeg-as-Rhdem Xfer(QC): 6 (Pt will be Mod I with bed mobility tasks and functional transfers. ) Toilet/Commode Transfer (QC): 6 (Pt will be Mod I with bed mobility tasks and functional transfers. ) Car Transfer (QC): 6 (Pt will be Mod I with bed mobility tasks and functional transfers. ) Does the Patient Walk: Yes Walk 10 feet (QC): 4 (Pt will be SBA/CGA for walking. ) Walk 10ft-Uneven Surface(QC): 4 (Pt will be SBA/CGA for walking. ) Walk 50ft with 2 Turns (QC): 4 (Pt will be SBA/CGA for walking. ) Walk 150 ft (QC): 4 (Pt will be SBA/CGA for walking. ) Does the Pt use WC or Scooter?: No Wheel 50 feet with 2 turns (QC: 9 Type: N/A Wheel 150 feet: 9 Type: N/A 1 Step (curb) (QC): 4 (Pt will be SBA/CGA for steps ) 4 Steps (QC): 4 (Pt will be SBA/CGA for steps ) 12 Steps (QC): 4 (Pt will be SBA/CGA for steps ) Picking up an Object (QC): 4 (Pt will be SBA/CGA for picking up an object ) OT Spot Welder Goals Halfway Goals Time Frame: May 28, 2023 Acute change in mental status: 0 Inattention: 1 Disorganized thinkin Altered level of consciousness: 0 Eating (QC): 6 (not met) Oral Hygiene (QC): 4 (met) Toileting Hygiene (QC): 4 (met) Shower/Bathe Self (QC): 4 (not met) Upper Body Dressing (QC): 4 (met) Lower Body Dressing (QC): 4 (met) On/Off Footwear (QC): 4 (met) Additional Goals: 1-Demonstrate ADL Tasks, 2-Verbalize Understanding, 3- ImproveStrength/Stefania 1=Demonstrate adherence to instructed precautions during ADL tasks. 2=Patient will verbalize/demonstrate understanding of assistive devices/modifications for ADL. 3=Patient will improve strength/tolerance for activity to enable patient to perform ADL's. Speech Spot Welder Goals Spot Welder Goals 1. The pt will tolerate regular diet with slowed rate of eating with occasional reminders. 2. The pt will provide clear y/n response to personal care questions. 3. The pt will increase appropriate verbalizations during tasks. SMITA HARRIS PT May 18, 2023 14:23
== END 2023-05-18 11:10 | disposition home or self-care (01) | DRG 949 ==
PROVIDERS: ADMIT Internal Medicine; ATTEND Internal Medicine
DX: S06.5XAD Traumatic subdural hemorrhage with loss of consciousness status unknown, subsequent encounter (principal); E46 Unspecified protein-calorie malnutrition; F02.84 Dementia in other diseases classified elsewhere, unspecified severity, with anxiety; Z68.1 Body mass index [BMI] 19.9 or less, adult; G20.A1 Parkinson's disease without dyskinesia, without mention of fluctuations; F79 Unspecified intellectual disabilities; G40.909 Epilepsy, unspecified, not intractable, without status epilepticus; R00.0 Tachycardia, unspecified; Z91.09 Other allergy status, other than to drugs and biological substances; Z79.899 Other long term (current) drug therapy; W19.XXXD Unspecified fall, subsequent encounter
CPT/HCPCS: 36415; 80053; 85025; 90686